=== PATIENT | male | born 1965 | race Caucasian/White ===

== ENCOUNTER → 2020-05-21 08:17 | Outpatient (BNVA) | payer OTHER, SELFPAY | PROVIDERS: PCP Internal Medicine; Visit Provider Internal Medicine | DX: I82.90 Acute embolism and thrombosis of unspecified vein (principal); Z51.81 Encounter for therapeutic drug level monitoring; Z79.01 Long term (current) use of anticoagulants | CPT/HCPCS: 85610 ==

== ENCOUNTER → 2020-06-18 08:41 | Outpatient (BNVA) | payer OTHER, SELFPAY | PROVIDERS: PCP Internal Medicine; Visit Provider Internal Medicine | DX: I82.890 Acute embolism and thrombosis of other specified veins (principal); Z51.81 Encounter for therapeutic drug level monitoring; Z79.01 Long term (current) use of anticoagulants | CPT/HCPCS: 85610; 99211 ==

== ENCOUNTER → 2020-07-16 08:30 | Outpatient (BNVA) | payer OTHER, SELFPAY | PROVIDERS: PCP Internal Medicine; Visit Provider Internal Medicine | DX: I82.890 Acute embolism and thrombosis of other specified veins (principal); Z51.81 Encounter for therapeutic drug level monitoring; Z79.01 Long term (current) use of anticoagulants | CPT/HCPCS: 85610; 99211 ==

== ENCOUNTER → 2020-08-13 08:27 | Outpatient (BNVA) | payer OTHER, SELFPAY | PROVIDERS: PCP Internal Medicine; Visit Provider Internal Medicine | DX: I82.890 Acute embolism and thrombosis of other specified veins (principal); Z51.81 Encounter for therapeutic drug level monitoring; Z79.01 Long term (current) use of anticoagulants | CPT/HCPCS: 85610; 99211 ==

== ENCOUNTER → 2020-09-10 08:30 | Outpatient (BNVA) | payer OTHER, SELFPAY | PROVIDERS: PCP Internal Medicine; Visit Provider Internal Medicine | DX: I82.890 Acute embolism and thrombosis of other specified veins (principal); Z51.81 Encounter for therapeutic drug level monitoring; Z79.01 Long term (current) use of anticoagulants | CPT/HCPCS: 85610; 99211 ==

== ENCOUNTER → 2020-09-17 09:41 | Outpatient (BNVA) | payer OTHER, SELFPAY | PROVIDERS: PCP Internal Medicine; Visit Provider Internal Medicine | DX: I82.890 Acute embolism and thrombosis of other specified veins (principal); Z51.81 Encounter for therapeutic drug level monitoring; Z79.01 Long term (current) use of anticoagulants | CPT/HCPCS: 85610; 99211 ==

== ENCOUNTER → 2020-10-08 08:28 | Outpatient (BNVA) | payer OTHER, SELFPAY | PROVIDERS: PCP Internal Medicine; Visit Provider Internal Medicine | DX: I82.890 Acute embolism and thrombosis of other specified veins (principal); Z51.81 Encounter for therapeutic drug level monitoring; Z79.01 Long term (current) use of anticoagulants | CPT/HCPCS: 85610; 99211 ==

== ENCOUNTER → 2020-10-23 08:53 | Outpatient (BNV) | payer OTHER, SELFPAY | PROVIDERS: PCP Internal Medicine; Visit Provider Internal Medicine Medical Oncology | DX: D75.1 Secondary polycythemia (principal) | CPT/HCPCS: 99213; 99214 ==

== ENCOUNTER → 2020-11-05 08:22 | Outpatient (BNVA) | payer OTHER, SELFPAY | PROVIDERS: Visit Provider Internal Medicine | DX: I82.890 Acute embolism and thrombosis of other specified veins (principal); Z51.81 Encounter for therapeutic drug level monitoring; Z79.01 Long term (current) use of anticoagulants | CPT/HCPCS: 85610; 99211 ==

== ENCOUNTER → 2020-12-03 08:24 | Outpatient (BNVA) | payer OTHER, SELFPAY | PROVIDERS: PCP Internal Medicine; Visit Provider Internal Medicine | DX: D73.5 Infarction of spleen (principal); Z51.81 Encounter for therapeutic drug level monitoring; Z79.01 Long term (current) use of anticoagulants | CPT/HCPCS: 85610; 99211 ==

== ENCOUNTER → 2020-12-24 08:35 | Outpatient (BNVA) | payer OTHER, SELFPAY | PROVIDERS: PCP Internal Medicine; Visit Provider Internal Medicine | DX: D73.5 Infarction of spleen (principal); Z51.81 Encounter for therapeutic drug level monitoring; Z79.01 Long term (current) use of anticoagulants | CPT/HCPCS: 85610; 99211 ==

== ENCOUNTER → 2021-01-21 08:37 | Outpatient (BNVA) | payer OTHER, SELFPAY | PROVIDERS: PCP Internal Medicine; Visit Provider Internal Medicine | DX: D73.5 Infarction of spleen (principal); Z51.81 Encounter for therapeutic drug level monitoring; Z79.01 Long term (current) use of anticoagulants | CPT/HCPCS: 85610; 99211 ==

== ENCOUNTER → 2021-01-25 08:33 | Outpatient (BNVA) | payer OTHER, SELFPAY | PROVIDERS: PCP Internal Medicine; Visit Provider Internal Medicine | DX: D73.5 Infarction of spleen (principal); Z51.81 Encounter for therapeutic drug level monitoring; Z79.01 Long term (current) use of anticoagulants | CPT/HCPCS: 85610; 99211 ==

== ENCOUNTER 2021-01-27 11:12 | Outpatient (REF) | payer OTHER, SELFPAY ==
[2021-01-27 11:38] LABS: MANUAL DIFF FLAG NO
[2021-01-27 11:39] LABS: Basophils Percent Auto 0.4 % (0-2); Eosinophils Percent Auto 0.7 % (0-4); Hematocrit 53.7 % (42-52); Hemoglobin 18.9 g/dl (14.0-18.0); Imm Gran Abs Auto 0.03 X10*3/uL (0.00-0.03); Imm Gran Pct Auto 0.6 % (0.0-0.4); Lymphocytes Absolute Auto 1.7 X10*3/uL (1.2-4.9); Lymphocytes Percent Auto 30.6 % (20-40); Mean Corpuscular HGB Conc 35.2 g/dl (31.0-36.0); Mean Corpuscular Hemoglobin 28.7 pg (27.0-33.0); Mean Corpuscular Volume 81.6 fL (80-98); Mean Platelet Volume 10.2 fL (9.4-12.4); Monocytes Absolute Auto 0.4 X10*3/uL (0.1-1.2); Monocytes Percent Auto 8.1 % (2-11); Neutrophils Absolute Auto 3.2 X10*3/uL (2.0-8.3); Neutrophils Percent Auto 59.6 % (45-73); Platelet Count 190 X10*3/uL (160-400); Red Blood Count 6.58 X10*6/uL (4.60-5.80); Red Cell Distribution Width 13.2 % (11.0-16.0); White Blood Count 5.4 X10*3/uL (4.8-10.8)
[2021-01-27 12:17] LABS: Alanine Aminotransferase 52 U/L (0-40); Albumin Level 4.4 g/dL (3.5-5.0); Alkaline Phosphatase 64 U/L (39-117); Anion Gap 15 (12-20); Aspartate Amino Transferase 32 U/L (5-37); Bilirubin Total 1.2 mg/dL (0.0-1.0); Blood Urea Nitrogen 17 mg/dL (9-16); Calcium 9.6 mg/dL (8.4-10.2); Carbon Dioxide 27 mmol/L (22-29); Chloride 97 mmol/L (96-108); Estimated Glomerular Filt Rate > 60; Glucose Random 176 mg/dL (60-115); Potassium 2.7 mmol/L (3.3-5.1); Sodium 136 mmol/L (135-145); Total Protein 7.1 g/dL (6.5-8.0)
== END 2021-01-27 11:13 | disposition home or self-care (01) ==
LOC: HO.BBR 11:12
PROVIDERS: PCP Internal Medicine; Visit Provider Internal Medicine Medical Oncology
DX: D75.1 Secondary polycythemia (principal)
CPT/HCPCS: 36415; 80053; 85025; 99195

== ENCOUNTER → 2021-02-01 08:24 | Outpatient (BNVA) | payer OTHER, SELFPAY | PROVIDERS: PCP Internal Medicine; Visit Provider Internal Medicine | DX: D73.5 Infarction of spleen (principal); Z51.81 Encounter for therapeutic drug level monitoring; Z79.01 Long term (current) use of anticoagulants | CPT/HCPCS: 85610; 99211 ==

== ENCOUNTER 2021-02-10 10:29 | Outpatient (REF) | payer OTHER, SELFPAY ==
[2021-02-10 11:25] LABS: MANUAL DIFF FLAG NO
[2021-02-10 11:36] LABS: INTERNATIONAL NORM RATIO 2.8 (0.9-1.1); Prothrombin Time 32.3 SEC (9.9-13.0)
[2021-02-10 11:58] LABS: Basophils Percent Auto 0.3 % (0-2); Eosinophils Percent Auto 0.3 % (0-4); Hematocrit 51.7 % (42-52); Hemoglobin 18.4 g/dl (14.0-18.0); Imm Gran Abs Auto 0.01 X10*3/uL (0.00-0.03); Imm Gran Pct Auto 0.2 % (0.0-0.4); Lymphocytes Absolute Auto 1.7 X10*3/uL (1.2-4.9); Lymphocytes Percent Auto 25.3 % (20-40); Mean Corpuscular HGB Conc 35.6 g/dl (31.0-36.0); Mean Corpuscular Hemoglobin 29.2 pg (27.0-33.0); Mean Corpuscular Volume 81.9 fL (80-98); Mean Platelet Volume 10.8 fL (9.4-12.4); Monocytes Absolute Auto 0.7 X10*3/uL (0.1-1.2); Monocytes Percent Auto 9.9 % (2-11); Neutrophils Absolute Auto 4.2 X10*3/uL (2.0-8.3); Platelet Count 240 X10*3/uL (160-400); Red Blood Count 6.31 X10*6/uL (4.60-5.80); Red Cell Distribution Width 12.8 % (11.0-16.0); White Blood Count 6.6 X10*3/uL (4.8-10.8)
[2021-02-10 12:25] LABS: Alanine Aminotransferase 45 U/L (0-40); Albumin Level 4.7 g/dL (3.5-5.0); Alkaline Phosphatase 59 U/L (39-117); Anion Gap 15 (12-20); Aspartate Amino Transferase 29 U/L (5-37); Bilirubin Total 1.1 mg/dL (0.0-1.0); Blood Urea Nitrogen 21 mg/dL (9-16); Calcium 10.7 mg/dL (8.4-10.2); Carbon Dioxide 32 mmol/L (22-29); Chloride 96 mmol/L (96-108); Estimated Glomerular Filt Rate > 60; Glucose Random 130 mg/dL (60-115); Potassium 3.1 mmol/L (3.3-5.1); Sodium 140 mmol/L (135-145); Total Protein 7.6 g/dL (6.5-8.0)
== END 2021-02-10 10:30 | disposition home or self-care (01) ==
LOC: HO.HMGCLDS 10:29
PROVIDERS: PCP Internal Medicine; Visit Provider Internal Medicine
DX: Z00.01 Encounter for general adult medical examination with abnormal findings (principal); I10 Essential (primary) hypertension; E87.6 Hypokalemia; R79.89 Other specified abnormal findings of blood chemistry; Z79.01 Long term (current) use of anticoagulants
CPT/HCPCS: 36415; 80053; 85025; 85610

== ENCOUNTER → 2021-03-01 08:37 | Outpatient (BNVA) | payer OTHER, SELFPAY | PROVIDERS: PCP Internal Medicine; Visit Provider Internal Medicine | DX: D73.5 Infarction of spleen (principal); Z51.81 Encounter for therapeutic drug level monitoring; Z79.01 Long term (current) use of anticoagulants | CPT/HCPCS: 85610; 99211 ==

== ENCOUNTER → 2021-03-30 09:05 | Outpatient (BNVA) | payer OTHER, SELFPAY | PROVIDERS: PCP Internal Medicine; Visit Provider Internal Medicine | DX: D73.5 Infarction of spleen (principal); Z51.81 Encounter for therapeutic drug level monitoring; Z79.01 Long term (current) use of anticoagulants | CPT/HCPCS: 85610; 99211 ==

== ENCOUNTER → 2021-04-06 08:50 | Outpatient (BNVA) | payer OTHER, SELFPAY | PROVIDERS: PCP Internal Medicine; Visit Provider Internal Medicine | DX: D73.5 Infarction of spleen (principal); Z51.81 Encounter for therapeutic drug level monitoring; Z79.01 Long term (current) use of anticoagulants | CPT/HCPCS: 85610; 99211 ==

== ENCOUNTER 2021-04-27 12:34 | Outpatient (REF) | payer OTHER, SELFPAY | END 2021-04-27 12:35 | disposition home or self-care (01) | LOC: HO.BBR 12:34 | PROVIDERS: PCP Internal Medicine; Visit Provider Internal Medicine Medical Oncology | DX: D75.1 Secondary polycythemia (principal) | CPT/HCPCS: 99195 ==

== ENCOUNTER → 2021-04-29 09:02 | Outpatient (BNVA) | payer OTHER, SELFPAY | PROVIDERS: PCP Internal Medicine; Visit Provider Internal Medicine | DX: D73.5 Infarction of spleen (principal); Z51.81 Encounter for therapeutic drug level monitoring; Z79.01 Long term (current) use of anticoagulants | CPT/HCPCS: 85610; 99211 ==

== ENCOUNTER → 2021-05-27 08:47 | Outpatient (BNVA) | payer OTHER, SELFPAY | PROVIDERS: PCP Internal Medicine; Visit Provider Internal Medicine | DX: D73.5 Infarction of spleen (principal); Z51.81 Encounter for therapeutic drug level monitoring; Z79.01 Long term (current) use of anticoagulants | CPT/HCPCS: 85610; 99211 ==

== ENCOUNTER → 2021-06-24 08:45 | Outpatient (BNVA) | payer OTHER, SELFPAY | PROVIDERS: PCP Internal Medicine; Visit Provider Internal Medicine | DX: D73.5 Infarction of spleen (principal); Z51.81 Encounter for therapeutic drug level monitoring; Z79.01 Long term (current) use of anticoagulants | CPT/HCPCS: 85610; 99211 ==

== ENCOUNTER → 2021-07-12 08:39 | Outpatient (BNVA) | payer OTHER, SELFPAY | PROVIDERS: PCP Internal Medicine; Visit Provider Internal Medicine | DX: D73.5 Infarction of spleen (principal); Z51.81 Encounter for therapeutic drug level monitoring; Z79.01 Long term (current) use of anticoagulants | CPT/HCPCS: 85610; 99211 ==

== ENCOUNTER 2021-07-27 09:06 | Outpatient (REF) | payer OTHER, SELFPAY ==
[2021-07-27 09:19] LABS: MANUAL DIFF FLAG NO
[2021-07-27 09:22] LABS: Basophils Percent Auto 0.5 % (0-2); Eosinophils Percent Auto 0.7 % (0-4); Hematocrit 52.3 % (42.0-52.0); Hemoglobin 17.4 g/dl (14.0-18.0); Imm Gran Abs Auto 0.01 X10*3/uL (0.00-0.03); Imm Gran Pct Auto 0.2 % (0.0-0.4); Lymphocytes Absolute Auto 1.4 X10*3/uL (1.2-4.9); Lymphocytes Percent Auto 31.8 % (20-40); Mean Corpuscular HGB Conc 33.3 g/dl (31.0-36.0); Mean Corpuscular Hemoglobin 27.7 pg (27.0-33.0); Mean Corpuscular Volume 83.3 fL (80.0-98.0); Mean Platelet Volume 9.9 fL (9.4-12.4); Monocytes Absolute Auto 0.4 X10*3/uL (0.1-1.2); Monocytes Percent Auto 9.1 % (2-11); Neutrophils Absolute Auto 2.5 x10*3/uL (2.0-8.3); Neutrophils Percent Auto 57.7 % (45-73); Platelet Count 164 X10*3/uL (160-400); Red Blood Count 6.28 X10*6/uL (4.60-5.80); Red Cell Distribution Width 13.8 % (11.0-16.0); White Blood Count 4.4 X10*3/uL (4.8-10.8)
[2021-07-27 09:56] LABS: Alanine Aminotransferase 35 U/L (0-40); Albumin Level 4.2 g/dL (3.5-5.0); Alkaline Phosphatase 79 U/L (39-117); Anion Gap 12 (12-20); Aspartate Amino Transferase 20 U/L (5-37); Bilirubin Total 0.7 mg/dL (0.0-1.0); Blood Urea Nitrogen 13 mg/dL (9-16); Calcium 9.5 mg/dL (8.4-10.2); Carbon Dioxide 23 mmol/L (22-29); Chloride 110 mmol/L (96-108); Estimated Glomerular Filt Rate > 60; Glucose Random 142 mg/dL (60-115); Potassium 4.1 mmol/L (3.3-5.1); Sodium 141 mmol/L (135-145); Total Protein 6.7 g/dL (6.5-8.0)
== END 2021-07-27 09:07 | disposition home or self-care (01) ==
LOC: HO.BBR 09:06
PROVIDERS: Visit Provider Internal Medicine Medical Oncology
DX: D75.1 Secondary polycythemia (principal)
CPT/HCPCS: 36415; 80053; 85018; 85025; 99195

== ENCOUNTER → 2021-08-09 08:13 | Outpatient (BNVA) | payer OTHER, SELFPAY | PROVIDERS: PCP Internal Medicine; Visit Provider Internal Medicine | DX: D73.5 Infarction of spleen (principal); Z51.81 Encounter for therapeutic drug level monitoring; Z79.01 Long term (current) use of anticoagulants | CPT/HCPCS: 85610; 99211 ==

== ENCOUNTER 2021-11-02 08:50 | Outpatient (REF) | payer OTHER, SELFPAY | END 2021-11-02 08:51 | disposition home or self-care (01) | LOC: HO.BBR 08:50 | PROVIDERS: Visit Provider Internal Medicine Medical Oncology | DX: D75.1 Secondary polycythemia (principal) | CPT/HCPCS: 85018; 99195 ==

== ENCOUNTER → 2021-12-21 10:48 | Outpatient (BNVA) | payer OTHER, SELFPAY | PROVIDERS: PCP Internal Medicine; Visit Provider Internal Medicine | DX: D73.5 Infarction of spleen (principal); Z79.01 Long term (current) use of anticoagulants; Z51.81 Encounter for therapeutic drug level monitoring | CPT/HCPCS: 85610; 99211 ==

== ENCOUNTER → 2022-01-18 08:56 | Outpatient (BNVA) | payer OTHER, SELFPAY | PROVIDERS: PCP Internal Medicine; Visit Provider Internal Medicine | DX: D73.5 Infarction of spleen (principal); Z79.01 Long term (current) use of anticoagulants; Z51.81 Encounter for therapeutic drug level monitoring | CPT/HCPCS: 85610; 99211 ==

== ENCOUNTER 2022-02-03 10:15 | Outpatient (REF) | payer OTHER, SELFPAY | END 2022-02-03 10:16 | disposition home or self-care (01) | LOC: HO.BBR 10:15 | PROVIDERS: Visit Provider Internal Medicine Medical Oncology | DX: D75.1 Secondary polycythemia (principal) | CPT/HCPCS: 85018; 99195 ==

== ENCOUNTER → 2022-02-15 09:05 | Outpatient (BNVA) | payer OTHER, SELFPAY | PROVIDERS: PCP Internal Medicine; Visit Provider Internal Medicine | DX: D73.5 Infarction of spleen (principal); Z79.01 Long term (current) use of anticoagulants; Z51.81 Encounter for therapeutic drug level monitoring | CPT/HCPCS: 85610; 99211 ==

== ENCOUNTER → 2022-03-18 09:00 | Outpatient (BNVA) | payer OTHER, SELFPAY | PROVIDERS: PCP Internal Medicine; Visit Provider Internal Medicine | DX: D73.5 Infarction of spleen (principal); Z79.01 Long term (current) use of anticoagulants; Z51.81 Encounter for therapeutic drug level monitoring | CPT/HCPCS: 85610; 99211 ==

== ENCOUNTER → 2022-04-15 09:00 | Outpatient (BNVA) | payer OTHER, SELFPAY | PROVIDERS: PCP Internal Medicine; Visit Provider Internal Medicine | DX: D73.5 Infarction of spleen (principal); Z79.01 Long term (current) use of anticoagulants; Z51.81 Encounter for therapeutic drug level monitoring | CPT/HCPCS: 85610; 99211 ==

== ENCOUNTER → 2022-04-22 08:56 | Outpatient (BNVA) | payer OTHER, SELFPAY | PROVIDERS: PCP Internal Medicine; Visit Provider Internal Medicine | DX: D73.5 Infarction of spleen (principal); Z79.01 Long term (current) use of anticoagulants; Z51.81 Encounter for therapeutic drug level monitoring | CPT/HCPCS: 85610; 99211 ==

== ENCOUNTER → 2022-04-29 09:03 | Outpatient (BNVA) | payer OTHER, SELFPAY | PROVIDERS: PCP Internal Medicine; Visit Provider Internal Medicine | DX: D73.5 Infarction of spleen (principal); Z79.01 Long term (current) use of anticoagulants; Z51.81 Encounter for therapeutic drug level monitoring | CPT/HCPCS: 85610; 99211 ==

== ENCOUNTER 2022-05-09 12:03 | Outpatient (REF) | payer OTHER, SELFPAY | END 2022-05-09 12:04 | disposition home or self-care (01) | LOC: HO.BBR 12:03 | PROVIDERS: Visit Provider Internal Medicine Medical Oncology | DX: D75.1 Secondary polycythemia (principal) | CPT/HCPCS: 85014; 85018; 99195 ==

== ENCOUNTER → 2022-05-13 09:01 | Outpatient (BNVA) | payer OTHER, SELFPAY | PROVIDERS: PCP Internal Medicine; Visit Provider Internal Medicine | DX: D73.5 Infarction of spleen (principal); Z79.01 Long term (current) use of anticoagulants; Z51.81 Encounter for therapeutic drug level monitoring | CPT/HCPCS: 85610; 99211 ==

== ENCOUNTER → 2022-06-03 09:04 | Outpatient (BNVA) | payer OTHER, SELFPAY | PROVIDERS: PCP Internal Medicine; Visit Provider Internal Medicine | DX: D73.5 Infarction of spleen (principal); Z79.01 Long term (current) use of anticoagulants; Z51.81 Encounter for therapeutic drug level monitoring | CPT/HCPCS: 85610; 99211 ==

== ENCOUNTER → 2022-06-29 09:25 | Outpatient (BNVA) | payer OTHER, SELFPAY | PROVIDERS: PCP Internal Medicine; Visit Provider Internal Medicine | DX: D73.5 Infarction of spleen (principal); Z79.01 Long term (current) use of anticoagulants; Z51.81 Encounter for therapeutic drug level monitoring | CPT/HCPCS: 85610; 99211 ==

== ENCOUNTER → 2022-07-05 08:49 | Outpatient (BNVA) | payer OTHER, SELFPAY | PROVIDERS: PCP Internal Medicine; Visit Provider Internal Medicine | DX: D73.5 Infarction of spleen (principal); Z79.01 Long term (current) use of anticoagulants; Z51.81 Encounter for therapeutic drug level monitoring | CPT/HCPCS: 85610; 99211 ==

== ENCOUNTER → 2022-08-04 09:57 | Outpatient (BNVA) | payer OTHER, SELFPAY | PROVIDERS: PCP Internal Medicine; Visit Provider Internal Medicine | DX: D73.5 Infarction of spleen (principal); Z79.01 Long term (current) use of anticoagulants; Z51.81 Encounter for therapeutic drug level monitoring | CPT/HCPCS: 85610; 99211 ==

== ENCOUNTER 2022-08-09 10:50 | Outpatient (REF) | payer OTHER, SELFPAY | END 2022-08-09 10:51 | disposition home or self-care (01) | LOC: HO.BBR 10:50 | PROVIDERS: PCP Internal Medicine; Visit Provider Internal Medicine Medical Oncology | DX: D75.1 Secondary polycythemia (principal) | CPT/HCPCS: 85014; 85018; 99195 ==

== ENCOUNTER 2022-08-10 10:53 | Outpatient (REF) | payer OTHER, SELFPAY | END 2022-08-10 10:54 | disposition home or self-care (01) | LOC: HO.BBR 10:53 | PROVIDERS: Visit Provider Internal Medicine Medical Oncology | DX: D75.1 Secondary polycythemia (principal) | CPT/HCPCS: 85014; 85018; 99195 ==

== ENCOUNTER → 2022-09-01 09:24 | Outpatient (BNVA) | payer OTHER, SELFPAY | PROVIDERS: PCP Internal Medicine; Visit Provider Internal Medicine | DX: D73.5 Infarction of spleen (principal); Z79.01 Long term (current) use of anticoagulants; Z51.81 Encounter for therapeutic drug level monitoring | CPT/HCPCS: 85610; 99211 ==

== ENCOUNTER → 2022-09-15 08:47 | Outpatient (BNVA) | payer OTHER, SELFPAY | PROVIDERS: PCP Internal Medicine; Visit Provider Internal Medicine | DX: D73.5 Infarction of spleen (principal); Z79.01 Long term (current) use of anticoagulants; Z51.81 Encounter for therapeutic drug level monitoring | CPT/HCPCS: 85610; 99212 ==

== ENCOUNTER → 2022-09-19 09:22 | Outpatient (BNVA) | payer OTHER, SELFPAY | PROVIDERS: PCP Internal Medicine; Visit Provider Internal Medicine | DX: D73.5 Infarction of spleen (principal); Z79.01 Long term (current) use of anticoagulants; Z51.81 Encounter for therapeutic drug level monitoring | CPT/HCPCS: 85610; 99211 ==

== ENCOUNTER → 2022-09-23 09:12 | Outpatient (BNVA) | payer OTHER, SELFPAY | PROVIDERS: PCP Internal Medicine; Visit Provider Internal Medicine | DX: D73.5 Infarction of spleen (principal); Z79.01 Long term (current) use of anticoagulants; Z51.81 Encounter for therapeutic drug level monitoring | CPT/HCPCS: 85610; 99211 ==

== ENCOUNTER → 2022-10-05 09:11 | Outpatient (BNVA) | payer OTHER, SELFPAY | PROVIDERS: PCP Internal Medicine; Visit Provider Internal Medicine | DX: D73.5 Infarction of spleen (principal); Z79.01 Long term (current) use of anticoagulants; Z51.81 Encounter for therapeutic drug level monitoring | CPT/HCPCS: 85610; 99211 ==

== ENCOUNTER → 2022-10-19 08:59 | Outpatient (BNVA) | payer OTHER, SELFPAY | PROVIDERS: PCP Internal Medicine; Visit Provider Internal Medicine | DX: D73.5 Infarction of spleen (principal); Z79.01 Long term (current) use of anticoagulants; Z51.81 Encounter for therapeutic drug level monitoring | CPT/HCPCS: 85610; 99211 ==

== ENCOUNTER 2022-11-08 | Outpatient (REF) | payer OTHER, SELFPAY | END 2022-11-08 00:01 | LOC: HO.BBR | PROVIDERS: PCP Internal Medicine; Visit Provider Internal Medicine Medical Oncology | DX: I82.890 Acute embolism and thrombosis of other specified veins (principal); Z51.81 Encounter for therapeutic drug level monitoring; Z79.01 Long term (current) use of anticoagulants | CPT/HCPCS: 85610; 99211 ==

== ENCOUNTER 2022-11-10 11:45 | Outpatient (REF) | payer OTHER, SELFPAY | END 2022-11-10 11:46 | disposition home or self-care (01) | LOC: HO.BBR 11:45 | PROVIDERS: Visit Provider Internal Medicine Medical Oncology | DX: D75.1 Secondary polycythemia (principal) | CPT/HCPCS: 85018; 99195 ==

== ENCOUNTER → 2022-11-29 09:05 | Outpatient (BNVA) | payer OTHER, SELFPAY | PROVIDERS: PCP Internal Medicine; Visit Provider Internal Medicine | DX: D73.5 Infarction of spleen (principal); Z79.01 Long term (current) use of anticoagulants; Z51.81 Encounter for therapeutic drug level monitoring | CPT/HCPCS: 85610; 99211 ==

== ENCOUNTER → 2022-12-13 08:56 | Outpatient (BNVA) | payer OTHER, SELFPAY | PROVIDERS: PCP Internal Medicine; Visit Provider Internal Medicine | DX: D73.5 Infarction of spleen (principal); Z79.01 Long term (current) use of anticoagulants; Z51.81 Encounter for therapeutic drug level monitoring | CPT/HCPCS: 85610; 99211 ==

== ENCOUNTER → 2022-12-27 09:15 | Outpatient (BNVA) | payer OTHER, SELFPAY | PROVIDERS: PCP Internal Medicine; Visit Provider Internal Medicine | DX: D73.5 Infarction of spleen (principal); Z79.01 Long term (current) use of anticoagulants; Z51.81 Encounter for therapeutic drug level monitoring | CPT/HCPCS: 85610; 99211 ==

== ENCOUNTER → 2023-01-17 09:03 | Outpatient (BNVA) | payer OTHER, SELFPAY | PROVIDERS: PCP Internal Medicine; Visit Provider Internal Medicine | DX: D73.5 Infarction of spleen (principal); Z79.01 Long term (current) use of anticoagulants; Z51.81 Encounter for therapeutic drug level monitoring | CPT/HCPCS: 85610; 99211 ==

== ENCOUNTER → 2023-02-06 09:00 | Outpatient (BNVA) | payer OTHER, SELFPAY | PROVIDERS: PCP Internal Medicine; Visit Provider Internal Medicine | DX: D73.5 Infarction of spleen (principal); Z79.01 Long term (current) use of anticoagulants; Z51.81 Encounter for therapeutic drug level monitoring | CPT/HCPCS: 85610; 99211 ==

== ENCOUNTER → 2023-02-10 08:51 | Outpatient (BNVA) | payer OTHER, SELFPAY | PROVIDERS: PCP Internal Medicine; Visit Provider Internal Medicine | DX: D73.5 Infarction of spleen (principal); Z79.01 Long term (current) use of anticoagulants; Z51.81 Encounter for therapeutic drug level monitoring | CPT/HCPCS: 85610; 99211 ==

== ENCOUNTER 2023-02-24 08:42 | Outpatient (AMB) | payer OTHER, SELFPAY ==
[2023-02-24 08:52] LABS: ~PT, ~INR - Anti Coag Clinic 1.8 (0.9-1.1)
--- NOTE | 2023-02-24 08:56 | MHC.OFFVISCO ---
Intake Intake Visit Reasons: Anticoagulation Allergies Seasonal Allergies Allergy (Mild, Verified 02/24/23 08:44) Itchy Eyes Medication List - Last Reconciled 02/24/23 by Tita Elena RN amlodipine 10 mg PO DAILY 90 days atenolol 100 mg PO DAILY 90 days omeprazole 20 mg PO DAILY 90 days spironolactone 50 mg PO DAILY 90 days warfarin See Protocol 5MG X2DAYS/ 7.5MG X5 DAYS; Nursing Note NO MISSED DOSES,CP,SOB,DIET/MED CHANGES,FALLS OR SX OF BLEEDING. PT.STATES THAT HE HAS BEEN TAKING 5MGM ON SUNDAYS FOR A WHILE IN APPARANT ERROR. 10MGM TODAY THEN 7.5MGM DAILY AND FOLLOW-UP IN 2 WEEKS. NO GREENS 2 DAYS GOOD UNDERSTANDING OF DOSING INSTR. 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
== END 2023-02-24 09:11 | disposition home or self-care (01) ==
LOC: HO.ACS 08:42
PROVIDERS: PCP Internal Medicine; Visit Provider Internal Medicine
DX: Z79.01 Long term (current) use of anticoagulants (principal)

== ENCOUNTER → 2023-02-24 08:42 | Outpatient (BNVA) | payer OTHER, SELFPAY | PROVIDERS: PCP Internal Medicine; Visit Provider Internal Medicine | DX: D73.5 Infarction of spleen (principal); Z79.01 Long term (current) use of anticoagulants; Z51.81 Encounter for therapeutic drug level monitoring | CPT/HCPCS: 85610; 99211 ==

== ENCOUNTER 2023-03-10 09:09 | Outpatient (AMB) | payer OTHER, SELFPAY ==
--- NOTE | 2023-03-10 09:14 | MHC.OFFVISCO ---
Intake Intake Visit Reasons: Anticoagulation Allergies Seasonal Allergies Allergy (Mild, Verified 03/10/23 09:10) Itchy Eyes Medication List - Last Reconciled 03/10/23 by Lissette Coker RN amlodipine 10 mg PO DAILY 90 days atenolol 100 mg PO DAILY 90 days omeprazole 20 mg PO DAILY 90 days spironolactone 50 mg PO DAILY 90 days warfarin See Protocol 5MG X2DAYS/ 7.5MG X5 DAYS; Nursing Note INR: 2.5 in therapeutic range Medications and supplements reviewed LOST WEIGHT AND MORE ACTIVE -HAS NOT HAD USUAL GREENS, MAY NEED HIGHER DOSE OF WARFARIN, Denies any signs and symptoms of bleeding or bruising or clotting. Bleeding, bruising, clotting discussed Nutritional guidance given - RESUME WEEKLY GREENS Dose: 10MG X 1 DAY/ 7.5MG X 6 DAYS F/U INR: 2 WEEKS Patient verbalizes understanding of instructions given Anti-Coag Initial Assessment Social Hx Patient Tobacco Use Status: Current everyday Tobacco user Tobacco use type: Cigarette Smoking packs per day: 0.5 alcohol intake: former Alcohol intake frequency: does not drink Coding Level of Care Code Est Patient Level 1 Diagnoses Current use of anticoagulant therapy Z79.01 Assessment & Plan Assessment & Plan (1) Current use of anticoagulant therapy: Code(s): 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
[2023-03-10 09:15] LABS: Prothrombin Time Whole Bld POC 30.4 sec (11.1-13.5); ~PT, ~INR - Anti Coag Clinic 2.5 (0.9-1.1)
== END 2023-03-10 09:22 | disposition home or self-care (01) ==
LOC: HO.ACS 09:09
PROVIDERS: PCP Internal Medicine; Visit Provider Internal Medicine
DX: Z79.01 Long term (current) use of anticoagulants (principal)

== ENCOUNTER → 2023-03-10 09:09 | Outpatient (BNVA) | payer OTHER, SELFPAY | PROVIDERS: PCP Internal Medicine; Visit Provider Internal Medicine | DX: D73.5 Infarction of spleen (principal); Z79.01 Long term (current) use of anticoagulants; Z51.81 Encounter for therapeutic drug level monitoring | CPT/HCPCS: 85610; 99211 ==

== ENCOUNTER 2023-03-16 08:53 | Outpatient (REF) | payer OTHER, SELFPAY | END 2023-03-16 08:54 | disposition home or self-care (01) | LOC: HO.BBR 08:53 | PROVIDERS: PCP Internal Medicine; Visit Provider Internal Medicine Medical Oncology | DX: D75.1 Secondary polycythemia (principal) | CPT/HCPCS: 85018; 99195 ==

== ENCOUNTER 2023-03-31 09:13 | Outpatient (AMB) | payer OTHER, SELFPAY ==
--- NOTE | 2023-03-31 09:19 | MHC.OFFVISCO ---
Intake Intake Visit Reasons: Anticoagulation Allergies Seasonal Allergies Allergy (Mild, Verified 03/31/23 09:15) Itchy Eyes Medication List - Last Reconciled 03/31/23 by Lissette Coker RN amlodipine 10 mg PO DAILY 90 days atenolol 100 mg PO DAILY 90 days omeprazole 20 mg PO DAILY 90 days spironolactone 50 mg PO DAILY 90 days warfarin See Protocol 5MG X2DAYS/ 7.5MG X5 DAYS; Nursing Note INR: 2.5 in therapeutic range Medications and supplements reviewed EATING HEALTHIER , MORE ACTIVE WITH WORK, HAS LOST 16 LBS OVER THE SUMMER Denies any signs and symptoms of bleeding or bruising or clotting. 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
[2023-03-31 09:31] LABS: Prothrombin Time Whole Bld POC 30.5 sec (11.1-13.5); ~PT, ~INR - Anti Coag Clinic 2.5 (0.9-1.1)
== END 2023-03-31 09:27 | disposition home or self-care (01) ==
LOC: HO.ACS 09:13
PROVIDERS: PCP Internal Medicine; Visit Provider Internal Medicine
DX: Z79.01 Long term (current) use of anticoagulants (principal)

== ENCOUNTER → 2023-03-31 09:13 | Outpatient (BNVA) | payer OTHER, SELFPAY | PROVIDERS: PCP Internal Medicine; Visit Provider Internal Medicine | DX: I82.890 Acute embolism and thrombosis of other specified veins (principal); Z51.81 Encounter for therapeutic drug level monitoring; Z79.01 Long term (current) use of anticoagulants | CPT/HCPCS: 85610; 99211 ==

== ENCOUNTER 2023-04-28 08:53 | Outpatient (AMB) | payer OTHER, SELFPAY ==
--- NOTE | 2023-04-28 08:58 | MHC.OFFVISCO ---
Intake Intake Visit Reasons: Anticoagulation Allergies Seasonal Allergies Allergy (Mild, Verified 04/28/23 08:54) Itchy Eyes Medication List - Last Reconciled 04/28/23 by Bia Briggs RN amlodipine 10 mg PO DAILY 90 days atenolol 100 mg PO DAILY 90 days omeprazole 20 mg PO DAILY 90 days spironolactone 50 mg PO DAILY 90 days warfarin See Protocol 5MG X2DAYS/ 7.5MG X5 DAYS; Nursing Note INR: 2.0- in therapeutic range Medications and supplements reviewed- no changes No changes in health, diet, medications, or supplements, Denies any signs and symptoms of bleeding or bruising or clotting. 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
[2023-04-28 09:00] LABS: Prothrombin Time Whole Bld POC 24.5 sec (11.1-13.5)
== END 2023-04-28 09:02 | disposition home or self-care (01) ==
LOC: HO.ACS 08:53
PROVIDERS: PCP Internal Medicine; Visit Provider Internal Medicine
DX: Z79.01 Long term (current) use of anticoagulants (principal)

== ENCOUNTER → 2023-04-28 08:53 | Outpatient (BNVA) | payer OTHER, SELFPAY | PROVIDERS: PCP Internal Medicine; Visit Provider Internal Medicine | DX: D73.5 Infarction of spleen (principal); Z79.01 Long term (current) use of anticoagulants; Z51.81 Encounter for therapeutic drug level monitoring | CPT/HCPCS: 85610; 99211 ==

== ENCOUNTER 2023-05-19 09:07 | Outpatient (AMB) | payer OTHER, SELFPAY ==
[2023-05-19 09:18] LABS: ~PT, ~INR - Anti Coag Clinic 2.3 (0.9-1.1)
--- NOTE | 2023-05-19 09:24 | MHC.OFFVISCO ---
Intake Intake Visit Reasons: Anticoagulation Allergies Seasonal Allergies Allergy (Mild, Verified 05/19/23 09:13) Itchy Eyes Medication List - Last Reconciled 05/19/23 by Lissette Coker RN amlodipine 10 mg PO DAILY 90 days atenolol 100 mg PO DAILY 90 days omeprazole 20 mg PO DAILY 90 days spironolactone 50 mg PO DAILY 90 days warfarin See Protocol 5MG X2DAYS/ 7.5MG X5 DAYS; Nursing Note INR: 2.3 in therapeutic range Medications and supplements reviewed No changes in health, diet, medications, or supplements, Denies any signs and symptoms of bleeding or bruising or clotting. 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
== END 2023-05-19 09:25 | disposition home or self-care (01) ==
LOC: HO.ACS 09:07
PROVIDERS: PCP Internal Medicine; Visit Provider Internal Medicine
DX: Z79.01 Long term (current) use of anticoagulants (principal)

== ENCOUNTER → 2023-05-19 09:07 | Outpatient (BNVA) | payer OTHER, SELFPAY | PROVIDERS: PCP Internal Medicine; Visit Provider Internal Medicine | DX: D73.5 Infarction of spleen (principal); Z79.01 Long term (current) use of anticoagulants; Z51.81 Encounter for therapeutic drug level monitoring | CPT/HCPCS: 85610; 99211 ==

== ENCOUNTER 2023-06-16 09:04 | Outpatient (AMB) | payer OTHER, SELFPAY ==
--- NOTE | 2023-06-16 09:10 | MHC.OFFVISCO ---
Intake Intake Visit Reasons: Anticoagulation Allergies Seasonal Allergies Allergy (Mild, Verified 06/16/23 09:07) Itchy Eyes Medication List - Last Reconciled 06/16/23 by Bia Briggs, RN amlodipine 10 mg PO DAILY 90 days atenolol 100 mg PO DAILY 90 days omeprazole 20 mg PO DAILY 90 days spironolactone 50 mg PO DAILY 90 days warfarin See Protocol 5MG X2DAYS/ 7.5MG X5 DAYS; Nursing Note INR: 2.0- in therapeutic range of 2-3 Medications and supplements reviewed- had covid booster approx one week ago No changes in health, diet, medications, or supplements, Denies any signs and symptoms of bleeding or bruising or clotting. Bleeding, bruising, clotting discussed Nutritional guidance given- no greens for 2 days, eat a red today Dose: 10mg x 1, 7.5mg x 6 F/U INR: pt req 4 weeks Patient verbalizes understanding of instructions given Anti-Coag Initial Assessment Social Hx Patient Tobacco Use Status: Current everyday Tobacco user Tobacco use type: Cigarette Smoking packs per day: 0.5 alcohol intake: former Alcohol intake frequency: does not drink Coding Level of Care Code Est Patient Level 1 Diagnoses Current use of anticoagulant therapy Z79.01 Assessment & Plan Assessment & Plan (1) Current use of anticoagulant therapy: Code(s): 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
[2023-06-16 09:12] LABS: Prothrombin Time Whole Bld POC 23.4 sec (11.1-13.5)
== END 2023-06-16 09:15 | disposition home or self-care (01) ==
LOC: HO.ACS 09:04
PROVIDERS: PCP Internal Medicine; Visit Provider Internal Medicine
DX: Z79.01 Long term (current) use of anticoagulants (principal)

== ENCOUNTER → 2023-06-16 09:04 | Outpatient (BNVA) | payer OTHER, SELFPAY | PROVIDERS: PCP Internal Medicine; Visit Provider Internal Medicine | DX: D73.5 Infarction of spleen (principal); Z79.01 Long term (current) use of anticoagulants; Z51.81 Encounter for therapeutic drug level monitoring | CPT/HCPCS: 85610; 99211 ==

== ENCOUNTER 2023-07-14 08:55 | Outpatient (AMB) | payer OTHER, SELFPAY ==
[2023-07-14 09:14] LABS: Prothrombin Time Whole Bld POC 17.8 sec (11.1-13.5); ~PT, ~INR - Anti Coag Clinic 1.5 (0.9-1.1)
--- NOTE | 2023-07-14 09:17 | MHC.OFFVISCO ---
Intake Intake Visit Reasons: Anticoagulation Allergies Seasonal Allergies Allergy (Mild, Verified 07/14/23 09:08) Itchy Eyes Medication List - Last Reconciled 07/14/23 by Bia Briggs RN amlodipine 10 mg PO DAILY 90 days atenolol 100 mg PO DAILY 90 days omeprazole 20 mg PO DAILY 90 days spironolactone 50 mg PO DAILY 90 days warfarin See Protocol 7.5mg x 6, 10mg x 1 Nursing Note INR 1.5-?? out of therapeutic range of 2-3 pt states missed 4 doses due to unable to get refill in time Medications and supplements reviewed Patient status: no c.o Medications or supplements: no changes Diet: same Denies any signs and symptoms of bleeding or clotting or unusual bruising Bleeding, bruising, clotting discussed Nutritional guidance given: no greens for 3 days, eat reds to raise Dose: 10mg today and tomm then cont reg 7.5mg x 6, 10mg x 1 F/U INR Date : mon07/17/23?? Patient verbalizing understanding of instructions given. pcp office called with low inr/dosing and f/u appt, spoke to edgar at 0923, aware of missed doses composed note to pcp Anti-Coag Initial Assessment Social Hx Patient Tobacco Use Status: Current everyday Tobacco user Tobacco use type: Cigarette Smoking packs per day: 0.5 alcohol intake: former Alcohol intake frequency: does not drink Coding Level of Care Code Est Patient Level 1 Diagnoses Current use of anticoagulant therapy Z79.01 Results AMB INR Fingerstick AMB INR Fingerstick 1.5 Last Edit by Bia Briggs RN on 07/14/23 09:14 Assessment & Plan Assessment & Plan (1) Current use of anticoagulant therapy: Code(s): Z79.01 - detention (current) use of anticoagulants Category: Medical Medications: Changed From warfarin See Protocol 5MG X2DAYS/ 7.5MG X5 DAYS; 90 tabs 3RF To warfarin See Protocol 7.5mg x 6, 10mg x 1
== END 2023-07-14 09:26 | disposition home or self-care (01) ==
LOC: HO.ACS 08:55
PROVIDERS: PCP Internal Medicine; Visit Provider Internal Medicine
DX: Z79.01 Long term (current) use of anticoagulants (principal)

== ENCOUNTER → 2023-07-14 08:55 | Outpatient (BNVA) | payer OTHER, SELFPAY | PROVIDERS: PCP Internal Medicine; Visit Provider Internal Medicine | DX: D73.5 Infarction of spleen (principal); Z79.01 Long term (current) use of anticoagulants; Z51.81 Encounter for therapeutic drug level monitoring | CPT/HCPCS: 85610; 99211 ==

== ENCOUNTER 2023-07-17 09:08 | Outpatient (AMB) | payer OTHER, SELFPAY ==
[2023-07-17 09:33] LABS: ~PT, ~INR - Anti Coag Clinic 2.5 (0.9-1.1)
--- NOTE | 2023-07-17 09:37 | MHC.OFFVISCO ---
Intake Intake Visit Reasons: Anticoagulation Allergies Seasonal Allergies Allergy (Mild, Verified 07/17/23 09:26) Itchy Eyes Medication List - Last Reconciled 07/17/23 by Lissette Coker RN amlodipine 10 mg PO DAILY 90 days atenolol 100 mg PO DAILY 90 days omeprazole 20 mg PO DAILY 90 days spironolactone 50 mg PO DAILY 90 days warfarin See Protocol 7.5mg x 6, 10mg x 1 Nursing Note INR: 2.5 in therapeutic range Medications and supplements reviewed No changes in health, diet, medications, or supplements, Denies any signs and symptoms of bleeding or bruising or clotting. 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
== END 2023-07-17 09:38 | disposition home or self-care (01) ==
LOC: HO.ACS 09:08
PROVIDERS: PCP Internal Medicine; Visit Provider Internal Medicine
DX: Z79.01 Long term (current) use of anticoagulants (principal)

== ENCOUNTER 2023-07-18 12:57 | Outpatient (REF) | payer OTHER, SELFPAY | END 2023-07-18 12:58 | disposition home or self-care (01) | LOC: HO.BBR 12:57 | PROVIDERS: PCP Internal Medicine; Visit Provider Internal Medicine Medical Oncology | DX: D75.1 Secondary polycythemia (principal) | CPT/HCPCS: 85014; 85018; 99195 ==

== ENCOUNTER 2023-07-21 07:57 | Outpatient (AMB) | payer OTHER, SELFPAY ==
[2023-07-21 08:09] VITALS: BP 116/80; PULSE 84; O2SAT 98; BMI 29.7
--- NOTE | 2023-07-21 08:09 | A.OFFPC_ITS ---
Vital Signs 07/21/23 08:09 Height 5 ft 9 in Weight 201 lb BMI 29.7 BP 116/80 Blood Pressure Location Rt brachial Position Sitting Pulse 84 Pulse Source Pulse Oximeter Pulse Oximetry (%) 98 Oxygen Delivery Method Room Air Intake Visit Reasons: Medication Follow Up Allergies Seasonal Allergies Allergy (Mild, Verified 07/17/23 09:26) Itchy Eyes Medication List - Last Reconciled 07/21/23 by Dimas Reid MD amlodipine 10 mg PO DAILY 90 days atenolol 100 mg PO DAILY 90 days omeprazole 20 mg PO DAILY 90 days spironolactone 50 mg PO DAILY 90 days warfarin See Protocol 7.5mg x 6, 10mg x 1 Tobacco use date assessed: 07/21/23 Dental Screening Dental Screen Date: 07/21/23 Did you have a dental visit in the last 12 months?: No Was dental information given to patient?: No HPI Medication Follow Up HPI Details Patient is a 57-year-old male came in today for his regular follow-up appointment last early April Patient is his usual state of health Hypertension: Patient is taking amlodipine 10 mg, atenolol 100 mg and spironolactone 50 mg. His blood pressure does fluctuate up. Patient disorder taking no medications he says he is stable Patient says that whenever he feels depressed he goes for a walk which helps a lot He has also modified his diet and is feeling much better than before GERD is stable with omeprazole 20 mg. Polycythemia management through hematology. Still smoking however has cut down and is trying to quit Labs are needed, I see the order already in the system placed by Hematology Follow-up early November [facility] Medical History Anxiety, generalized Tobacco abuse Dyspepsia Splenic vein thrombosis Hepatitis C antibody positive in blood Hypertension, essential Bipolar 1 disorder Surgical History History of surgery History of tonsillectomy Family History Father HTN (hypertension) Mother HTN (hypertension) Brother HTN (hypertension) Maternal Grandfather No problems noted. Maternal Grandmother No problems noted. Paternal Grandfather No problems noted. Paternal Grandmother No problems noted. Brother No problems noted. Sister No problems noted. Daughter No problems noted. Other Substance use disorder Social History Household Members: Family Housing: Condominium Are you a primary health care attorney to a significant other at home: No Do you presently have visiting nurse or other home services: No Alcohol intake: former Patient Tobacco Use Status: Current everyday Tobacco user Tobacco use type: Cigarette Cigarette Packs Per Day: 0.5 Years Smoked: 17 e-Cigarette/Vaping Use: Never Used Substance Use Type: Marijuana service: No Current occupational status: disabled Cognitive needs: No Hearing needs: No Vision needs: Yes Questionnaire Thrive Questionnaire Date Thrive assessed: 12/21/21 SHRADDHA-7 AMB Questionnaire SHRADDHA-7 Date SHRADDHA - 7 assessed: 12/21/21 Source: Developed by Drs. Vivek Sims, Saadia Harris, French Correia and colleagues, with an educational azeem from [employer]. Review of Systems Const Denies chills and Denies fever(s) ENT Denies epistaxis and Denies nasal discharge Card Denies chest pain Resp Denies chest congestion, Denies cough and Denies hemoptysis GI Denies diarrhea and Denies nausea Skin/Breast Denies rash Neuro Reports no additional complaints Psych Reports no additional complaints Endo Reports no additional complaints Physical exam (Primary Care) Vital Signs: Last Vital Signs Pulse 84 07/21/23 08:09 BP 116/80 07/21/23 08:09 Pulse Ox 98 07/21/23 08:09 Oxygen Delivery Method Room Air 07/21/23 08:09 BMI result Body Mass Index 29.7 Tobacco/Smoking Status: Tobacco use Status Tobacco use date assessed 07/21/23 07/21/23 08:13 Patient Tobacco Use Status Current everyday Tobacco 07/21/23 08:13 Tobacco use type Cigarette 07/21/23 08:13 e-Cigarette/Vaping Use Never Used 07/21/23 08:13 Thrive Assessment: Date of Thrive Assessment Date Thrive assessed 12/21/21 07/21/23 08:13 Const General: cooperative, comfortable and no acute distress Orientation/consciousness: patient oriented x3 HENMT Head: Yes normocephalic Eyes General: appearance normal, both eyes and all related structures Neck Neck: Yes supple Resp Effort & Inspection: normal respiratory effort, no cough and no stridor Cardio Rhythm: regular rhythm Heart sounds: S1 normal heart sound present and S2 normal heart sound present Skin General skin exam: turgor normal Neuro General: patient oriented x3, tone normal and moves all extremities Extrem Right lower extremity: no edema Left lower extremity: no edema Office Procedures Flu Questionnaire Does the patient have a severe egg allergy?: No Does the patient have severe life threatening allergies?: No Does the patient have a fever or illness today?: No Has the patient ever had Guillain-Carlotta Syndrome?: No Has the patient ever had any past reaction to a flu shot?: No Immunizations flu vacc [id number] 6mos up(PF) 60 mcg(15 mcgx4)/0.5 mL IM syringe Performing Provider: Dimas Reid MD [place] [facility] [place] [facility] Administered by: Valarie Saleem CMA on 07/21/23 08:28 Dose Route Admin Location Dispensed Lot Number Expiration Date NDC Edge Sander 0.5 mL IM Right Deltoid 0.5 mL [id number] 02/04/24 09362-242-39 [employer] VIS Given Date VIS Provided VIS Publication Date 07/21/23 Single Vaccine 21 Eligibility Eligibility Date Funding Source Not 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 His blood pressure does fluctuate up. Patient disorder taking no medications he says he is stable Patient says that whenever he feels depressed he goes for a walk which helps a lot He has also modified his diet and is feeling much better than before GERD is stable with omeprazole 20 mg. Polycythemia management through hematology. Still smoking however has cut down and is trying to quit Labs are needed, I see the order already in the system placed by Hematology Follow-up early November Orders: Orders Influenza [id number] Immunization Today Z23 - Encounter for immunization Coding Level of Care Code Est Pt Level 3 (76953) Diagnoses Hypertension, essential I10 Polycythemia D75.1 Tobacco abuse Z72.0 Bipolar 1 disorder F31.9 Current use of anticoagulant therapy Z79.01 Dyspepsia R10.13
== END 2023-07-21 08:29 | disposition home or self-care (01) ==
PROVIDERS: PCP Internal Medicine; Visit Provider Internal Medicine
DX: I10 Essential (primary) hypertension (principal); D75.1 Secondary polycythemia; Z72.0 Tobacco use; F31.9 Bipolar disorder, unspecified; Z79.01 Long term (current) use of anticoagulants; R10.13 Epigastric pain; Z23 Encounter for immunization
CPT/HCPCS: 90471; 90686; 99213

== ENCOUNTER 2023-08-15 09:27 | Outpatient (AMB) | payer OTHER, SELFPAY ==
[2023-08-15 09:34] LABS: Prothrombin Time Whole Bld POC 32.4 sec (11.1-13.5); ~PT, ~INR - Anti Coag Clinic 2.7 (0.9-1.1)
--- NOTE | 2023-08-15 09:40 | MHC.OFFVISCO ---
Intake Intake Visit Reasons: Anticoagulation Allergies Seasonal Allergies Allergy (Mild, Verified 08/15/23 09:29) Itchy Eyes Medication List - Last Reconciled 08/15/23 by Lissette Coker RN amlodipine 10 mg PO DAILY 90 days atenolol 100 mg PO DAILY 90 days omeprazole 20 mg PO DAILY 90 days spironolactone 50 mg PO DAILY 90 days warfarin See Protocol 7.5mg x 6, 10mg x 1 Nursing Note INR: 2.7 in therapeutic range Medications and supplements reviewed Pt smoking less, walking and exercising a little more, eating healthier - has lost weight - appears more healthy Denies any signs and symptoms of bleeding or bruising or clotting. Bleeding, bruising, clotting discussed Nutritional guidance given- eat a mix of fruits and vegetables Dose: 10mg x 12 day/ 7.5mg x 6 days F/U INR: 1 month Patient verbalizes understanding of instructions given Anti-Coag Initial Assessment Social Hx Patient Tobacco Use Status: Current everyday Tobacco user Tobacco use type: Cigarette Smoking packs per day: 0.5 alcohol intake: former Alcohol intake frequency: does not drink Coding Level of Care Code Est Patient Level 1 Diagnoses Current use of anticoagulant therapy Z79.01 Assessment & Plan Assessment & Plan (1) Current use of anticoagulant therapy: Code(s): 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
== END 2023-08-15 09:42 | disposition home or self-care (01) ==
LOC: HO.ACS 09:27
PROVIDERS: PCP Internal Medicine; Visit Provider Internal Medicine
DX: Z79.01 Long term (current) use of anticoagulants (principal)

== ENCOUNTER → 2023-08-15 09:27 | Outpatient (BNVA) | payer OTHER, SELFPAY | PROVIDERS: PCP Internal Medicine; Visit Provider Internal Medicine | DX: D73.5 Infarction of spleen (principal); Z79.01 Long term (current) use of anticoagulants; Z51.81 Encounter for therapeutic drug level monitoring | CPT/HCPCS: 85610; 99211 ==

== ENCOUNTER 2023-09-13 09:29 | Outpatient (AMB) | payer OTHER, SELFPAY ==
--- NOTE | 2023-09-13 09:48 | MHC.OFFVISCO ---
Intake Intake Visit Reasons: Anticoagulation Allergies Seasonal Allergies Allergy (Mild, Verified 09/13/23 09:33) Itchy Eyes Medication List - Last Reconciled 09/13/23 by Lissette Coker RN amlodipine 10 mg PO DAILY 90 days atenolol 100 mg PO DAILY 90 days omeprazole 20 mg PO DAILY 90 days spironolactone 50 mg PO DAILY 90 days warfarin See Protocol 7.5mg x 6, 10mg x 1 Nursing Note INR 1.6? out of therapeutic range Medications and supplements reviewed- NO CHANGES Patient status: Walking more, eating healthier and quits smoking pt states it has been almost years since he had the clot in his spleen and wondering if he can come off warfarin, he has polythemia and enc to ask his hemetologist Dr Velez. maybe he can change to a DOAC Medications or supplements: no changes Diet: good Denies any signs and symptoms of bleeding or clotting or unusual bruising Bleeding, bruising, clotting discussed Nutritional guidance given: review food list weekly, balance diet with foods that raise and lower the INR Dose: increase to 10mg x 2 days/ 7.5mg x 5 days F/U INR Date: in 5 days 09/18/23 ?? Patient verbalizing understanding of instructions given. 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
[2023-09-13 11:17] LABS: ~PT, ~INR - Anti Coag Clinic 1.6 (0.9-1.1)
== END 2023-09-13 09:55 | disposition home or self-care (01) ==
LOC: HO.ACS 09:29
PROVIDERS: PCP Internal Medicine; Visit Provider Internal Medicine
DX: Z79.01 Long term (current) use of anticoagulants (principal)

== ENCOUNTER → 2023-09-13 09:29 | Outpatient (BNVA) | payer OTHER, SELFPAY | PROVIDERS: PCP Internal Medicine; Visit Provider Internal Medicine | DX: D73.5 Infarction of spleen (principal); Z79.01 Long term (current) use of anticoagulants; Z51.81 Encounter for therapeutic drug level monitoring | CPT/HCPCS: 85610; 99211 ==

== ENCOUNTER 2023-09-18 09:19 | Outpatient (AMB) | payer OTHER, SELFPAY ==
[2023-09-18 09:53] LABS: Prothrombin Time Whole Bld POC 26.9 sec (11.1-13.5); ~PT, ~INR - Anti Coag Clinic 2.2 (0.9-1.1)
--- NOTE | 2023-09-18 09:58 | MHC.OFFVISCO ---
Intake Intake Visit Reasons: Anticoagulation Allergies Seasonal Allergies Allergy (Mild, Verified 09/18/23 09:44) Itchy Eyes Medication List - Last Reconciled 09/18/23 by Lissette Coker RN amlodipine 10 mg PO DAILY 90 days atenolol 100 mg PO DAILY 90 days omeprazole 20 mg PO DAILY 90 days spironolactone 50 mg PO DAILY 90 days warfarin See Protocol 7.5mg x 6, 10mg x 1 Nursing Note INR: 2.2 in therapeutic range Medications and supplements reviewed No changes in health, diet, medications, or supplements, Denies any signs and symptoms of bleeding or bruising or clotting. Bleeding, bruising, clotting discussed Nutritional guidance given Dose: try increased dose again x 2 weeks 10mg x 2 days/ 7.5g x 5 days F/U INR: 2 weeks Patient verbalizes understanding of instructions given pt has polythemia whic can increase risk of blood clots- will research if DOACS can be used for prevention Anti-Coag Initial Assessment Social Hx Patient Tobacco Use Status: Current everyday Tobacco user Tobacco use type: Cigarette Smoking packs per day: 0.5 alcohol intake: former Alcohol intake frequency: does not drink Coding Level of Care Code Est Patient Level 1 Diagnoses Current use of anticoagulant therapy Z79.01 Assessment & Plan Assessment & Plan (1) Current use of anticoagulant therapy: Code(s): Z79.01 - senior care (current) use of anticoagulants Category: Medical
== END 2023-09-18 10:01 | disposition home or self-care (01) ==
LOC: HO.ACS 09:19
PROVIDERS: PCP Internal Medicine; Visit Provider Internal Medicine
DX: Z79.01 Long term (current) use of anticoagulants (principal)

== ENCOUNTER → 2023-09-18 09:19 | Outpatient (BNVA) | payer OTHER, SELFPAY | PROVIDERS: PCP Internal Medicine; Visit Provider Internal Medicine | DX: D73.5 Infarction of spleen (principal); Z79.01 Long term (current) use of anticoagulants; Z51.81 Encounter for therapeutic drug level monitoring | CPT/HCPCS: 85610; 99211 ==

== ENCOUNTER 2023-10-20 08:48 | Outpatient (AMB) | payer OTHER, SELFPAY ==
--- NOTE | 2023-10-20 08:56 | MHC.OFFVISCO ---
Intake Intake Visit Reasons: Anticoagulation Allergies Seasonal Allergies Allergy (Mild, Verified 10/20/23 08:51) Itchy Eyes Medication List - Last Reconciled 10/20/23 by Bia Briggs RN amlodipine 10 mg PO DAILY 90 days atenolol 100 mg PO DAILY 90 days diphenhydramine HCl (Benadryl Allergy) 25 mg PO BEDTIME PRN omeprazole 20 mg PO DAILY 90 days spironolactone 50 mg PO DAILY 90 days warfarin See Protocol 7.5mg x 6, 10mg x 1 Nursing Note INR: 2.2- in therapeutic range of 2-3 Medications and supplements reviewed- taking benadryl prn for allergies- no interaction per micromedex No changes in health, diet, medications, or supplements, Denies any signs and symptoms of bleeding or bruising or clotting. 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
[2023-10-20 08:57] LABS: Prothrombin Time Whole Bld POC 26.4 sec (11.1-13.5); ~PT, ~INR - Anti Coag Clinic 2.2 (0.9-1.1)
== END 2023-10-20 09:05 | disposition home or self-care (01) ==
LOC: HO.ACS 08:48
PROVIDERS: PCP Internal Medicine; Visit Provider Internal Medicine
DX: Z79.01 Long term (current) use of anticoagulants (principal)

== ENCOUNTER → 2023-10-20 08:48 | Outpatient (BNVA) | payer OTHER, SELFPAY | PROVIDERS: PCP Internal Medicine; Visit Provider Internal Medicine | DX: D73.5 Infarction of spleen (principal); Z79.01 Long term (current) use of anticoagulants; Z51.81 Encounter for therapeutic drug level monitoring | CPT/HCPCS: 85610; 99211 ==

== ENCOUNTER 2023-11-17 08:57 | Outpatient (AMB) | payer OTHER, SELFPAY ==
--- NOTE | 2023-11-17 09:02 | MHC.OFFVISCO ---
Intake Intake Visit Reasons: Anticoagulation Allergies Seasonal Allergies Allergy (Mild, Verified 11/17/23 08:58) Itchy Eyes Medication List - Last Reconciled 11/17/23 by Bia Briggs RN amlodipine 10 mg PO DAILY 90 days atenolol 100 mg PO DAILY 90 days diphenhydramine HCl (Benadryl Allergy) 25 mg PO BEDTIME PRN omeprazole 20 mg PO DAILY 90 days spironolactone 50 mg PO DAILY 90 days warfarin See Protocol 7.5mg x 6, 10mg x 1 Nursing Note INR: 2.4- in therapeutic range of 2-3 Medications and supplements reviewed No changes in health, diet, medications, or supplements, Denies any signs and symptoms of bleeding or bruising or clotting. Bleeding, bruising, clotting discussed Nutritional guidance given Dose: 10mg x 2, 7.5mg x 5 F/U INR: 4 weeks Patient verbalizes understanding of instructions given pt states has pcp appt today, he may request nicotine patches for smoking cessation- no interaction with warfarin per micromedex Anti-Coag Initial Assessment Social Hx Patient Tobacco Use Status: Current everyday Tobacco user Tobacco use type: Cigarette Smoking packs per day: 0.5 alcohol intake: former Alcohol intake frequency: does not drink Coding Level of Care Code Est Patient Level 1 Diagnoses Current use of anticoagulant therapy Z79.01 Results AMB INR Fingerstick AMB INR Fingerstick 2.4 Last Edit by Bia Briggs RN on 11/17/23 09:04 Assessment & Plan Assessment & Plan (1) Current use of anticoagulant therapy: Code(s): Z79.01 - butt maker (current) use of anticoagulants Category: Medical Medications: Changed From warfarin See Protocol 7.5mg x 6, 10mg x 1 To warfarin See Protocol 7.5mg x 5, 10mg x 2
[2023-11-17 09:12] LABS: Prothrombin Time Whole Bld POC 28.3 sec (11.1-13.5); ~PT, ~INR - Anti Coag Clinic 2.4 (0.9-1.1)
== END 2023-11-17 09:11 | disposition home or self-care (01) ==
LOC: HO.ACS 08:57
PROVIDERS: PCP Internal Medicine; Visit Provider Internal Medicine
DX: Z79.01 Long term (current) use of anticoagulants (principal)

== ENCOUNTER → 2023-11-17 08:57 | Outpatient (BNVA) | payer OTHER, SELFPAY | PROVIDERS: PCP Internal Medicine; Visit Provider Internal Medicine | DX: I74.8 Embolism and thrombosis of other arteries (principal); Z79.01 Long term (current) use of anticoagulants; Z51.81 Encounter for therapeutic drug level monitoring | CPT/HCPCS: 85610; 99211 ==

== ENCOUNTER 2023-11-17 10:44 | Outpatient (AMB) | payer OTHER, SELFPAY ==
[2023-11-17 10:46] VITALS: BP 136/80; PULSE 78; O2SAT 97; BMI 29.2
--- NOTE | 2023-11-17 10:46 | MHC.PC.OV ---
Vital Signs 11/17/23 10:46 Height 5 ft 9 in Weight 197 lb 8 oz BMI 29.2 BP 136/80 Blood Pressure Location Lt brachial Position Sitting Pulse 78 Pulse Source Pulse Oximeter Pulse Oximetry (%) 97 Oxygen Delivery Method Room Air Intake Visit Reasons: 4 month fu Accompanied by: Self / Same As Patient Allergies Seasonal Allergies Allergy (Mild, Verified 11/17/23 10:47) Itchy Eyes Medication List - Last Reconciled 11/17/23 by Dimas Reid MD amlodipine 10 mg PO DAILY 90 days atenolol 100 mg PO DAILY 90 days diphenhydramine HCl (Benadryl Allergy) 25 mg PO BEDTIME PRN omeprazole 20 mg PO DAILY 90 days spironolactone 50 mg PO DAILY 90 days warfarin See Protocol 7.5mg x 5, 10mg x 2 Tobacco use date assessed: 11/17/23 Dental Screening Dental Screen Date: 11/17/23 Did you have a dental visit in the last 12 months?: No Did you have a dental problem in the last 6 months where you did not have access to dental care?: No Was dental information given to patient?: Yes HPI 4 month fu HPI Details Patient is a 58-year-old male came in today for his regular follow-up appointment He is due for labs ordered by Dr. Velez Patient is smoking 1 pack per day, he says that he is ready to quit, requesting Nicoderm patches 21 mg patch sent with 1 refill, patient is to get back to [facility] end of 2 months if he has stopped smoking so I can send in 14 mg patch Hypertension: Patient is taking amlodipine 10 mg, atenolol 100 mg and spironolactone 50 mg. His blood pressure is stable Patient have a diagnosis of bipolar disorder but taking no medications, he is stable GERD is stable with omeprazole 20 mg. Polycythemia management through hematology. He will return in 4 months for follow-up appointment to [facility] Medical History Anxiety, generalized Tobacco abuse Dyspepsia Splenic vein thrombosis Hepatitis C antibody positive in blood Hypertension, essential Bipolar 1 disorder Surgical History History of surgery History of tonsillectomy Family History Father HTN (hypertension) Mother HTN (hypertension) Brother HTN (hypertension) Maternal Grandfather No problems noted. Maternal Grandmother No problems noted. Paternal Grandfather No problems noted. Paternal Grandmother No problems noted. Brother No problems noted. Sister No problems noted. Daughter No problems noted. Other Substance use disorder Social History Household Members: [facility] Are you a primary skin care instructor to a significant other at home: No Do you presently have visiting nurse or other home services: No Alcohol intake: former Patient Tobacco Use Status: Current everyday Tobacco user Tobacco use type: Cigarette Cigarette Packs Per Day: 0.5 Years Smoked: 17 e-Cigarette/Vaping Use: Never Used Substance Use Type: Marijuana service: No Current occupational status: disabled Cognitive needs: No Hearing needs: No Vision needs: Yes Questionnaire PHQ-9 Over the last 2 weeks, how often have you been bothered by any of the following problems? 1. Little interest or pleasure in doing things: not at all 2. Feeling down, depressed, or hopeless: several days 3. Trouble falling or staying asleep, or sleeping too much: several days 4. Feeling tired or having little energy: several days 5. Poor appetite or overeating: not at all 6. Feeling bad about yourself - or that you are a failure or have let yourself or your family down: several days 7. Trouble concentrating on things, such as reading the newspaper or watching television: several days 8. Moving or speaking so slowly that other people could have noticed. Or the opposite - being so fidgety or restless that you have been moving around a lot more than usual: several days 9. Thoughts that you would be better off or of hurting yourself in some way: not at all Total score: 6 Depression Screening Interpretation: Positive Depression Screening Done: Yes 41658 - PHQ-9 Billing: Yes Source: Developed by Drs. Vivek Sims, Saadia Harris, French Correia and colleagues, with an educational azeem from [employer]. Thrive Questionnaire Date Thrive assessed: 12/21/21 AUDIT C Alcohol Use Questionnaire (AUDIT-C) 1. How often do you have a drink containing alcohol?: Never 3. How often do you have six or more drinks on one occasion?: Never Total Score: 0 Score Reviewed/Action Taken: Yes SHRADDHA-7 AMB Questionnaire SHRADDHA-7 Date SHRADDHA - 7 assessed: 11/17/23 Feeling nervous, anxious, or on edge: 2 = More than half the days Not being able to stop or control worryin = More than half the days Worrying too much about different things: 2 = More than half the days Trouble relaxin = Nearly every day Being so restless that it is hard to sit still: 3 = Nearly every day Becoming easily annoyed or irritable: 1 = Several days Feeling afraid as if something awful might happen: 0 = Not at all Total SHRADDHA-7 score (0-4 normal; 5-9 mild; 10-14 moderate; 15-21 severe): 13 Source: Developed by Drs. Vivek Sims, Saadia Harris, French Correia and colleagues, with an educational azeem from [employer]. SHRADDHA-7 Assessment Billing SHRADDHA-7 Assessment Tool: SHRADDHA-7 Assessment 25039 Review of Systems Const Denies chills and Denies fever(s) ENT Denies epistaxis and Denies nasal discharge Card Denies chest pain Resp Denies chest congestion, Denies cough and Denies hemoptysis GI Denies diarrhea and Denies nausea Skin/Breast Denies rash Neuro Reports no additional complaints Psych Reports no additional complaints Endo Reports no additional complaints Physical exam (Primary Care) Vital Signs: Last Vital Signs Pulse 78 11/17/23 10:46 BP 136/80 11/17/23 10:46 Pulse Ox 97 11/17/23 10:46 Oxygen Delivery Method Room Air 11/17/23 10:46 BMI result Body Mass Index 29.2 Tobacco/Smoking Status: Tobacco use Status Tobacco use date assessed 11/17/23 11/17/23 10:51 Patient Tobacco Use Status Current everyday Tobacco 11/17/23 10:51 Tobacco use type Cigarette 11/17/23 10:51 e-Cigarette/Vaping Use Never Used 11/17/23 10:51 PHQ-9: PHQ-9 Score PHQ-9: Total score 6 11/17/23 11:03 Depression Screening Interpretation: Positive Thrive Assessment: Date of Thrive Assessment Date Thrive assessed 12/21/21 11/17/23 10:51 Const General: cooperative, comfortable and no acute distress Orientation/consciousness: patient oriented x3 HENMT Head: Yes normocephalic Eyes General: appearance normal, both eyes and all related structures Neck Neck: Yes supple Resp Effort & Inspection: normal respiratory effort, no cough and no stridor Cardio Rhythm: regular rhythm Heart sounds: S1 normal heart sound present and S2 normal heart sound present Skin General skin exam: turgor normal Neuro General: patient oriented x3, tone normal and moves all extremities Extrem Right lower extremity: no edema Left lower extremity: no edema Results AMB INR Fingerstick AMB INR Fingerstick 2.4 Last Edit by Bia Briggs RN on 11/17/23 09:04 Assessment and Plan Assessment & Plan (1) Hypertension, essential: Code(s): I10 - Essential (primary) hypertension (2) Polycythemia: Code(s): D75.1 - Secondary polycythemia (3) Tobacco abuse: Comment: Patient was instructed to stop smoking as soon as possible, and if he need any assistance he is to let me know Code(s): Z72.0 - Tobacco use (4) Bipolar 1 disorder: Code(s): F31.9 - Bipolar disorder, unspecified (5) Current use of anticoagulant therapy: Code(s): Z79.01 - technician terminal and repeater (current) use of anticoagulants (6) Dyspepsia: Code(s): R10.13 - Epigastric pain Plan Patient is a 58-year-old male came in today for his regular follow-up appointment He is due for labs ordered by Dr. Velez Patient is smoking 1 pack per day, he says that he is ready to quit, requesting Nicoderm patches 21 mg patch sent with 1 refill, patient is to get back to [facility] end of 2 months if he has stopped smoking so I can send in 14 mg patch Hypertension: Patient is taking amlodipine 10 mg, atenolol 100 mg and spironolactone 50 mg. His blood pressure is stable Patient have a diagnosis of bipolar disorder but taking no medications, he is stable GERD is stable with omeprazole 20 mg. Polycythemia management through hematology. He will return in 4 months for follow-up appointment to Medications: New nicotine (Nicoderm CQ) 1 patch transdermal Q24H 28 ea 1RF Coding Level of Care Code Est Pt Level 4 (25539) Diagnoses Hypertension, essential I10 Polycythemia D75.1 Tobacco abuse Z72.0 Bipolar 1 disorder F31.9 Current use of anticoagulant therapy Z79.01 Dyspepsia R10.13 Additional Codes SHRADDHA-7 Assessment Billing - SHRADDHA-7 Assessment Tool: SHRADDHA-7 Assessment 08772 ([id number])
== END 2023-11-17 16:38 | disposition home or self-care (01) ==
PROVIDERS: PCP Internal Medicine; Visit Provider Internal Medicine
DX: I10 Essential (primary) hypertension (principal); D75.1 Secondary polycythemia; Z72.0 Tobacco use; F31.9 Bipolar disorder, unspecified; Z79.01 Long term (current) use of anticoagulants; R10.13 Epigastric pain
CPT/HCPCS: 99214

== ENCOUNTER 2023-11-17 11:01 | Outpatient (REF) | payer OTHER, SELFPAY ==
[2023-11-17 13:37] LABS: MANUAL DIFF FLAG NO
[2023-11-17 13:53] LABS: Basophils Percent Auto 0.2 % (0-2); Eosinophils Percent Auto 0.4 % (0-4); Hematocrit 47.9 % (42.0-52.0); Imm Gran Abs Auto 0.01 X10*3/uL (0.00-0.03); Imm Gran Pct Auto 0.2 % (0.0-0.4); Lymphocytes Absolute Auto 1.1 X10*3/uL (1.2-4.9); Mean Corpuscular HGB Conc 31.3 g/dl (31.0-36.0); Mean Corpuscular Volume 79.7 fL (80.0-98.0); Mean Platelet Volume 11.3 fL (9.4-12.4); Monocytes Absolute Auto 0.4 X10*3/uL (0.1-1.2); Monocytes Percent Auto 7.1 % (2-11); Neutrophils Absolute Auto 4.1 x10*3/uL (2.0-8.3); Neutrophils Percent Auto 73.1 % (45-73); Platelet Count 180 X10*3/uL (160-400); Red Blood Count 6.01 X10*6/uL (4.60-5.80); Red Cell Distribution Width 15.9 % (11.0-16.0); White Blood Count 5.6 X10*3/uL (4.8-10.8)
[2023-11-17 14:20] LABS: Alanine Aminotransferase 21 U/L (0-40); Albumin Level 4.1 g/dL (3.5-5.0); Alkaline Phosphatase 76 U/L (39-117); Anion Gap 11 (12-20); Aspartate Amino Transferase 19 U/L (5-37); Bilirubin Total 0.5 mg/dL (0.0-1.0); Blood Urea Nitrogen 16 mg/dL (9-16); Calcium 9.5 mg/dL (8.4-10.2); Carbon Dioxide 27 mmol/L (22-29); Chloride 108 mmol/L (96-108); Estimated Glomerular Filt Rate > 60; Glucose Random 119 mg/dL (60-115); Potassium 4.9 mmol/L (3.3-5.1); Sodium 141 mmol/L (135-145); Total Protein 7.1 g/dL (6.5-8.0)
== END 2023-11-17 11:02 | disposition home or self-care (01) ==
LOC: HO.HMGCLDS 11:01
PROVIDERS: PCP Internal Medicine; Visit Provider Internal Medicine Medical Oncology
DX: D75.1 Secondary polycythemia (principal)
CPT/HCPCS: 36415; 80053; 85025

== ENCOUNTER 2023-12-01 13:53 | Outpatient (REF) | payer OTHER, SELFPAY | END 2023-12-01 13:54 | disposition home or self-care (01) | LOC: HO.BBR 13:53 | PROVIDERS: PCP Internal Medicine; Visit Provider Internal Medicine Medical Oncology | DX: D75.1 Secondary polycythemia (principal) | CPT/HCPCS: 85018; 99195 ==

== ENCOUNTER 2023-12-15 09:22 | Outpatient (AMB) | payer OTHER, SELFPAY ==
[2023-12-15 09:28] LABS: Prothrombin Time Whole Bld POC 37.3 sec (11.1-13.5); ~PT, ~INR - Anti Coag Clinic 3.1 (0.9-1.1)
--- NOTE | 2023-12-15 09:34 | MHC.OFFVISCO ---
Intake Intake Visit Reasons: Anticoagulation Allergies Seasonal Allergies Allergy (Mild, Verified 12/15/23 09:22) Itchy Eyes Medication List - Last Reconciled 12/15/23 by Lissette Coker RN amlodipine 10 mg PO DAILY 90 days atenolol 100 mg PO DAILY 90 days diphenhydramine HCl (Benadryl Allergy) 25 mg PO BEDTIME PRN nicotine (Nicoderm CQ) 1 patch transdermal Q24H omeprazole 20 mg PO DAILY 90 days spironolactone 50 mg PO DAILY 90 days warfarin See Protocol 7.5mg x 5, 10mg x 2 Nursing Note INR: 3.1 ALMOST in therapeutic range Medications and supplements reviewed HAS DESIRE TO QUICK SMOKING AND NOW ON NICOTEINE PATCH X 1 MONTH WITH THE CHAY, Denies any signs and symptoms of bleeding or bruising or clotting. Bleeding, bruising, clotting discussed Nutritional guidance given - EAT MORE GREENS NOW THAT STOPPED SMOKING IT RAISES YOUR INR Dose: 10MG X 2 DAYS/ 7.5MG X 5 DAYS F/U INR: 4 WEEKS Patient verbalizes understanding of instructions given Anti-Coag Initial Assessment Social Hx Patient Tobacco Use Status: Current everyday Tobacco user Tobacco use type: Cigarette Smoking packs per day: 0.5 alcohol intake: former Alcohol intake frequency: does not drink Coding Level of Care Code Est Patient Level 1 Diagnoses Current use of anticoagulant therapy Z79.01 Assessment & Plan Assessment & Plan (1) Current use of anticoagulant therapy: Code(s): Z79.01 - care home (current) use of anticoagulants Category: Medical
== END 2023-12-15 09:38 | disposition home or self-care (01) ==
LOC: HO.ACS 09:22
PROVIDERS: PCP Internal Medicine; Visit Provider Internal Medicine
DX: Z79.01 Long term (current) use of anticoagulants (principal)

== ENCOUNTER → 2023-12-15 09:22 | Outpatient (BNVA) | payer OTHER, SELFPAY | PROVIDERS: PCP Internal Medicine; Visit Provider Internal Medicine | DX: I82.890 Acute embolism and thrombosis of other specified veins (principal); Z51.81 Encounter for therapeutic drug level monitoring; Z79.01 Long term (current) use of anticoagulants | CPT/HCPCS: 85610; 99211 ==

== ENCOUNTER 2024-01-12 09:02 | Outpatient (AMB) | payer OTHER, SELFPAY ==
[2024-01-12 09:11] LABS: Prothrombin Time Whole Bld POC 46.4 sec (11.1-13.5); ~PT, ~INR - Anti Coag Clinic 3.9 (0.9-1.1)
--- NOTE | 2024-01-12 09:22 | MHC.OFFVISCO ---
Intake Intake Visit Reasons: Anticoagulation Allergies Seasonal Allergies Allergy (Mild, Verified 01/12/24 09:06) Itchy Eyes Medication List - Last Reconciled 01/12/24 by Adina Acevedo, RN amlodipine 10 mg PO DAILY 90 days atenolol 100 mg PO DAILY 90 days diphenhydramine HCl (Benadryl Allergy) 25 mg PO BEDTIME PRN nicotine (Nicoderm CQ) 1 patch transdermal Q24H omeprazole 20 mg PO DAILY 90 days spironolactone 50 mg PO DAILY 90 days warfarin See Protocol 7.5mg x 5, 10mg x 2 Nursing Note INR 3.9?out of therapeutic range of 2-3 Medications and supplements reviewed Patient status: well. Stopped smoking 2 months ago and is doing well Medications or supplements: no changes Diet: usual diet for pt Denies any signs and symptoms of bleeding or clotting or unusual bruising Bleeding, bruising, clotting discussed Nutritional guidance given: to have a serving of greens today Dose: decrease today's dose to 5mg (7.5mg) then decrease weekly dose to 7.5mg X 6 days and 10 mg X 1 day (decreased from 2 days) F/U INR Date : 2 weeks?? Patient verbalizing understanding of instructions given. Anti-Coag Initial Assessment Social Hx Patient Tobacco Use Status: Current everyday Tobacco user Tobacco use type: Cigarette Smoking packs per day: 0.5 alcohol intake: former Alcohol intake frequency: does not drink Coding Level of Care Code Est Patient Level 1 Diagnoses Current use of anticoagulant therapy Z79.01 Assessment & Plan Assessment & Plan (1) Current use of anticoagulant therapy: Code(s): Z79.01 - [facility] (current) use of anticoagulants Category: Medical
== END 2024-01-12 09:25 | disposition home or self-care (01) ==
LOC: HO.ACS 09:02
PROVIDERS: PCP Internal Medicine; Visit Provider Internal Medicine
DX: Z79.01 Long term (current) use of anticoagulants (principal)

== ENCOUNTER → 2024-01-12 09:02 | Outpatient (BNVA) | payer OTHER, SELFPAY | PROVIDERS: PCP Internal Medicine; Visit Provider Internal Medicine | DX: I82.890 Acute embolism and thrombosis of other specified veins (principal); Z79.01 Long term (current) use of anticoagulants; Z51.81 Encounter for therapeutic drug level monitoring | CPT/HCPCS: 85610; 99211 ==

== ENCOUNTER 2024-01-26 08:53 | Outpatient (AMB) | payer OTHER, SELFPAY ==
--- NOTE | 2024-01-26 09:11 | MHC.OFFVISCO ---
Intake Intake Visit Reasons: Anticoagulation Allergies Seasonal Allergies Allergy (Mild, Verified 01/26/24 09:06) Itchy Eyes Medication List - Last Reconciled 01/26/24 by Bia Briggs RN amlodipine 10 mg PO DAILY 90 days atenolol 100 mg PO DAILY 90 days diphenhydramine HCl (Benadryl Allergy) 25 mg PO BEDTIME PRN omeprazole 20 mg PO DAILY 90 days spironolactone 50 mg PO DAILY 90 days warfarin See Protocol 7.5mg x 5, 10mg x 2 Nursing Note INR 3.2-? out of therapeutic range Medications and supplements reviewed Patient status: quit smoking approx 2 months ago- has one cig a day Medications or supplements: stopped nicotine patch in december Diet: same Denies any signs and symptoms of bleeding or clotting or unusual bruising Bleeding, bruising, clotting discussed Nutritional guidance given: eat greens to lower Dose: F/U INR Date : 2 weeks? Patient verbalizing understanding of instructions given. Anti-Coag Initial Assessment Social Hx Patient Tobacco Use Status: Current everyday Tobacco user Tobacco use type: Cigarette Smoking packs per day: 0.5 alcohol intake: former Alcohol intake frequency: does not drink Coding Level of Care Code Est Patient Level 1 Diagnoses Current use of anticoagulant therapy Z79.01 Assessment & Plan Assessment & Plan (1) Current use of anticoagulant therapy: Code(s): Z79.01 - termination clerk (current) use of anticoagulants Category: Medical Medications: Discontinued nicotine (Nicoderm CQ) Discontinued Reason: Patient no longer taking 1 patch transdermal Q24H 28 ea 1RF
[2024-01-26 09:12] LABS: Prothrombin Time Whole Bld POC 38.9 sec (11.1-13.5); ~PT, ~INR - Anti Coag Clinic 3.2 (0.9-1.1)
== END 2024-01-26 09:18 | disposition home or self-care (01) ==
LOC: HO.ACS 08:53
PROVIDERS: PCP Internal Medicine; Visit Provider Internal Medicine
DX: Z79.01 Long term (current) use of anticoagulants (principal)

== ENCOUNTER → 2024-01-26 08:53 | Outpatient (BNVA) | payer OTHER, SELFPAY | PROVIDERS: PCP Internal Medicine; Visit Provider Internal Medicine | DX: D73.5 Infarction of spleen (principal); Z79.01 Long term (current) use of anticoagulants; Z51.81 Encounter for therapeutic drug level monitoring | CPT/HCPCS: 85610; 99211 ==

== ENCOUNTER 2024-02-15 11:39 | Outpatient (AMB) | payer OTHER, SELFPAY ==
[2024-02-15 11:45] LABS: Prothrombin Time Whole Bld POC 45.2 sec (11.1-13.5); ~PT, ~INR - Anti Coag Clinic 3.8 (0.9-1.1)
--- NOTE | 2024-02-15 11:51 | MHC.OFFVISCO ---
Intake Intake Visit Reasons: Anticoagulation Allergies Seasonal Allergies Allergy (Mild, Verified 02/15/24 11:40) Itchy Eyes Medication List - Last Reconciled 02/15/24 by Lissette Coker RN amlodipine 10 mg PO DAILY 90 days atenolol 100 mg PO DAILY 90 days diphenhydramine HCl (Benadryl Allergy) 25 mg PO BEDTIME PRN nicotine (Nicoderm CQ) 1 patch transdermal DAILY omeprazole 20 mg PO DAILY 90 days spironolactone 50 mg PO DAILY 90 days warfarin See Protocol 7.5mg x 5, 10mg x 2 Nursing Note Pt came by to state he has not been able to make it to appt for various reasons, however now planning to have dental extractions in the near future, coming in to have MD sign approval /clearance. Performed INR incase needed for extractions. INR 3.8? out of therapeutic range Medications and supplements reviewed Patient status: diet changes due to work and extreme heat, smoking less, lost 30 lbs Medications or supplements: mayy go back on nicotine patch Diet: not usual diet Denies any signs and symptoms of bleeding or clotting or unusual bruising Bleeding, bruising, clotting discussed Nutritional guidance given: review food list weekly, eat a mix of fruits and vegetables - greens today and weekly Dose: 2.5 mg today then try 7.5mg daily if still elevated next week decrease weekly dose F/U INR Date : 1 week 02/22/24?? Patient verbalizing understanding of instructions given. Anti-Coag Initial Assessment Social Hx Patient Tobacco Use Status: Current everyday Tobacco user Tobacco use type: Cigarette Smoking packs per day: 0.5 alcohol intake: former Alcohol intake frequency: does not drink Coding Level of Care Code Est Patient Level 1 Diagnoses Current use of anticoagulant therapy Z79.01 Results AMB INR Fingerstick AMB INR Fingerstick 3.8 Last Edit by Lissette Coker RN on 02/15/24 11:46 manual entry Assessment & Plan Assessment & Plan (1) Current use of anticoagulant therapy: Code(s): Z79.01 - [facility] (current) use of anticoagulants Category: Medical
== END 2024-02-15 11:55 | disposition home or self-care (01) ==
LOC: HO.ACS 11:39
PROVIDERS: PCP Internal Medicine; Visit Provider Internal Medicine
DX: Z79.01 Long term (current) use of anticoagulants (principal)

== ENCOUNTER → 2024-02-15 11:39 | Outpatient (BNVA) | payer OTHER, SELFPAY | PROVIDERS: PCP Internal Medicine; Visit Provider Internal Medicine | DX: D73.5 Infarction of spleen (principal); Z79.01 Long term (current) use of anticoagulants; Z51.81 Encounter for therapeutic drug level monitoring | CPT/HCPCS: 85610; 99211 ==

== ENCOUNTER 2024-02-22 09:16 | Outpatient (AMB) | payer OTHER, SELFPAY ==
--- NOTE | 2024-02-22 09:36 | MHC.OFFVISCO ---
Intake Intake Visit Reasons: Anticoagulation Allergies Seasonal Allergies Allergy (Mild, Verified 02/22/24 09:17) Itchy Eyes Medication List - Last Reconciled 02/22/24 by Lissette Coker RN amlodipine 10 mg PO DAILY 90 days atenolol 100 mg PO DAILY 90 days diphenhydramine HCl (Benadryl Allergy) 25 mg PO BEDTIME PRN nicotine (Nicoderm CQ) 1 patch transdermal DAILY omeprazole 20 mg PO DAILY 90 days spironolactone 50 mg PO DAILY 90 days warfarin See Protocol 7.5mg x 5, 10mg x 2 Nursing Note INR 3.3 out of therapeutic range Medications and supplements reviewed Patient status: STOPPED SMOKING FOR SEVERAL MONTHS AND RESTARTED JUST A FEW A DAY PT TO HAVE 9 DENTAL EXTRACTIONS 03/12/24 - DR TOMAS CLEARED HIM FOR A 5 DAY HOLD IF NEEDED, PT TO ASK ORAL SURGE HOW MANY DAYS NEEDED AND IF INR REQUIRED DAY BEFORE, NO LOVENOX INSTRUCTIONS AT THIS TIME - WILL VERIFY WITH DR TOMAS. Medications or supplements: NO Diet: GOOD - LESS WITH THE HEAT Denies any signs and symptoms of bleeding or clotting or unusual bruising Bleeding, bruising, clotting discussed Nutritional guidance given: EAT A MIX OF FRUITS AND VEGETEABLES Dose: 5MG X 2 DAYS/ 7.5MG X 5 DAYS WITH DECREASED APPETITE F/U INR Date : 12 DAYS 1 WEEK PRIOR EXTRACTIONS ?? Patient verbalizing understanding of instructions given. Anti-Coag Initial Assessment Social Hx Patient Tobacco Use Status: Current everyday Tobacco user Tobacco use type: Cigarette Smoking packs per day: 0.5 alcohol intake: former Alcohol intake frequency: does not drink Coding Level of Care Code Est Patient Level 1 Diagnoses Current use of anticoagulant therapy Z79.01 Results AMB INR Fingerstick AMB INR Fingerstick 3.3 Last Edit by Lissette Coker RN on 02/22/24 09:23 MANUAL ENTRY Assessment & Plan Assessment & Plan (1) Current use of anticoagulant therapy: Code(s): Z79.01 - terminologist (current) use of anticoagulants Category: Medical
[2024-02-22 09:54] LABS: Prothrombin Time Whole Bld POC 39.6 sec (11.1-13.5); ~PT, ~INR - Anti Coag Clinic 3.3 (0.9-1.1)
== END 2024-02-22 09:42 | disposition home or self-care (01) ==
LOC: HO.ACS 09:16
PROVIDERS: PCP Internal Medicine; Visit Provider Internal Medicine
DX: Z79.01 Long term (current) use of anticoagulants (principal)

== ENCOUNTER → 2024-02-22 09:16 | Outpatient (BNVA) | payer OTHER, SELFPAY | PROVIDERS: PCP Internal Medicine; Visit Provider Internal Medicine | DX: D73.5 Infarction of spleen (principal); Z79.01 Long term (current) use of anticoagulants; Z51.81 Encounter for therapeutic drug level monitoring | CPT/HCPCS: 85610; 99211 ==

== ENCOUNTER 2024-03-05 08:54 | Outpatient (AMB) | payer OTHER, SELFPAY ==
--- NOTE | 2024-03-05 09:15 | MHC.OFFVISCO ---
Intake Intake Visit Reasons: Anticoagulation Allergies Seasonal Allergies Allergy (Mild, Verified 03/05/24 08:55) Itchy Eyes Medication List - Last Reconciled 03/05/24 by Bia Briggs RN amlodipine 10 mg PO DAILY 90 days atenolol 100 mg PO DAILY 90 days diphenhydramine HCl (Benadryl Allergy) 25 mg PO BEDTIME PRN enoxaparin (Lovenox) 80 mg (0.8 mL) subcut Q12H omeprazole 20 mg PO DAILY 90 days spironolactone 50 mg PO DAILY 90 days warfarin See Protocol 7.5mg x 5, 10mg x 2 Nursing Note INR: 2.0- in therapeutic range of 2-3 Medications and supplements reviewed No changes in health, diet, medications, or supplements, Denies any signs and symptoms of bleeding or bruising or clotting. Bleeding, bruising, clotting discussed Nutritional guidance given Dose: hold warfarin starting tomm for 6 days, with lovenox bridge per dr martinez F/U INR: 03/15/24 Patient verbalizes understanding of instructions given pt given written instructions for warfarin hold and lovenox bridging pt to have dental extractions x 9 on 03/12/24 Anti-Coag Initial Assessment Social Hx Patient Tobacco Use Status: Current everyday Tobacco user Tobacco use type: Cigarette Smoking packs per day: 0.5 alcohol intake: former Alcohol intake frequency: does not drink Coding Level of Care Code Est Patient Level 2 Diagnoses Current use of anticoagulant therapy Z79.01 Assessment & Plan Assessment & Plan (1) Current use of anticoagulant therapy: Code(s): Z79.01 - intermediate (current) use of anticoagulants Category: Medical
[2024-03-05 09:16] LABS: Prothrombin Time Whole Bld POC 24.3 sec (11.1-13.5)
== END 2024-03-05 09:24 | disposition home or self-care (01) ==
LOC: HO.ACS 08:54
PROVIDERS: PCP Internal Medicine; Visit Provider Internal Medicine
DX: Z79.01 Long term (current) use of anticoagulants (principal)

== ENCOUNTER → 2024-03-05 08:54 | Outpatient (BNVA) | payer OTHER, SELFPAY | PROVIDERS: PCP Internal Medicine; Visit Provider Internal Medicine | DX: D73.5 Infarction of spleen (principal); Z79.01 Long term (current) use of anticoagulants; Z51.81 Encounter for therapeutic drug level monitoring | CPT/HCPCS: 85610; 99212 ==

== ENCOUNTER 2024-03-15 09:20 | Outpatient (AMB) | payer OTHER, SELFPAY ==
[2024-03-15 09:33] LABS: Prothrombin Time Whole Bld POC 13.2 sec (11.1-13.5); ~PT, ~INR - Anti Coag Clinic 1.1 (0.9-1.1)
--- NOTE | 2024-03-15 09:44 | MHC.OFFVISCO ---
Intake Intake Visit Reasons: Anticoagulation Allergies Seasonal Allergies Allergy (Mild, Verified 03/15/24 09:25) Itchy Eyes Medication List - Last Reconciled 03/15/24 by Adina Acevedo, RN amlodipine 10 mg PO DAILY 90 days atenolol 100 mg PO DAILY 90 days diphenhydramine HCl (Benadryl Allergy) 25 mg PO BEDTIME PRN enoxaparin (Lovenox) 80 mg See Protocol subcut Q12H omeprazole 20 mg PO DAILY 90 days spironolactone 50 mg PO DAILY 90 days warfarin See Protocol 7.5mg x 5, 10mg x 2 Nursing Note Pt to [facility] s/p extraction of 9 teeth on 03/12/24. Had a 6 day hold of warfarin. Is taking lovenox bid. Not eating much, just yogurt and cottage cheese. INR 1.1?out of therapeutic range 2-3 Medications and supplements reviewed Patient status: pt states he feels well Medications or supplements: started amoxicillan on 03/12/24 post extraction. Denies any signs and symptoms of bleeding or clotting or unusual bruising Bleeding, bruising, clotting discussed Nutritional guidance given: to try a protein shake once a day and then try to have cranberry juice, strawberries in his yogurt, and peanut butter all of which pt states he likes and will try. Food list reviewed. Dose: 10mg today (7.5mg) and then 7.5mg daily Pt understands he needs to continue lovenox 2X/day F/U INR Date : in 4 days on 03/19/24?? Patient verbalizing understanding of instructions given. Anti-Coag Initial Assessment Social Hx Patient Tobacco Use Status: Current everyday Tobacco user Tobacco use type: Cigarette Smoking packs per day: 0.5 alcohol intake: former Alcohol intake frequency: does not drink Coding Level of Care Code Est Patient Level 2 Diagnoses Current use of anticoagulant therapy Z79.01 Time Spent (min) 30 Assessment & Plan Assessment & Plan (1) Current use of anticoagulant therapy: Code(s): Z79.01 - terminal computer operator (current) use of anticoagulants Category: Medical
== END 2024-03-15 09:53 | disposition home or self-care (01) ==
LOC: HO.ACS 09:20
PROVIDERS: PCP Internal Medicine; Visit Provider Internal Medicine
DX: Z79.01 Long term (current) use of anticoagulants (principal)

== ENCOUNTER → 2024-03-15 09:20 | Outpatient (BNVA) | payer OTHER, SELFPAY | PROVIDERS: PCP Internal Medicine; Visit Provider Internal Medicine | DX: D73.5 Infarction of spleen (principal); Z79.01 Long term (current) use of anticoagulants; Z51.81 Encounter for therapeutic drug level monitoring | CPT/HCPCS: 85610; 99212 ==

== ENCOUNTER 2024-03-19 11:21 | Outpatient (AMB) | payer OTHER, SELFPAY ==
[2024-03-19 11:29] LABS: Prothrombin Time Whole Bld POC 13.5 sec (11.1-13.5); ~PT, ~INR - Anti Coag Clinic 1.1 (0.9-1.1)
--- NOTE | 2024-03-19 11:47 | MHC.OFFVISCO ---
Intake Intake Visit Reasons: Anticoagulation Allergies Seasonal Allergies Allergy (Mild, Verified 03/19/24 11:24) Itchy Eyes Medication List - Last Reconciled 03/19/24 by Adina Acevedo RN amlodipine 10 mg PO DAILY 90 days atenolol 100 mg PO DAILY 90 days diphenhydramine HCl (Benadryl Allergy) 25 mg PO BEDTIME PRN enoxaparin (Lovenox) 80 mg See Protocol subcut Q12H omeprazole 20 mg PO DAILY 90 days spironolactone 50 mg PO DAILY 90 days warfarin See Protocol 7.5mg x 5, 10mg x 2 Nursing Note INR 1.1?out of therapeutic range of 2-3 Pt S/P a 5 day hold of warfarin for extraction of 9 teeth on 03/12/24. Restarted warfarin on 03/13/24 as per [facility] instruction. Pt also stated he started smoking again to increase the INR. Informed pt smoking cigarettes can lower the INR but also will affect healing. Medications and supplements reviewed: continues on amoxicillan which can have a delayed effect to raise the INR Patient status: feels well, no bleeding, oral swelling or pain per pt Supplements: Started taking the supplement Boost after the extraction twice a day and this can lower the INR but decreased eating can raise the INR. Diet: pt stated he is going to try to eat chopped food today. Has been having yogurt soup and boost until now. Denies any signs and symptoms of bleeding or clotting or unusual bruising Bleeding, bruising, clotting discussed Nutritional guidance given: to avoid greens and try to have foods from the list that raises the INR. If he is able to tolerate chopped foods, then to stop the boost or decrease to once a day. Dose: 10mg today and tomorrow and 7.5mg the next day then pt to return to [facility] for INR re-check F/U INR Date : Mon03/22/24?? Patient verbalizing understanding of instructions given. 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
== END 2024-03-19 12:19 | disposition home or self-care (01) ==
LOC: HO.ACS 11:21
PROVIDERS: PCP Internal Medicine; Visit Provider Internal Medicine
DX: Z79.01 Long term (current) use of anticoagulants (principal)

== ENCOUNTER → 2024-03-19 11:21 | Outpatient (BNVA) | payer OTHER, SELFPAY | PROVIDERS: PCP Internal Medicine; Visit Provider Internal Medicine | DX: D73.5 Infarction of spleen (principal); Z79.01 Long term (current) use of anticoagulants; Z51.81 Encounter for therapeutic drug level monitoring | CPT/HCPCS: 85610; 99212 ==

== ENCOUNTER 2024-03-22 10:28 | Outpatient (AMB) | payer OTHER, SELFPAY ==
[2024-03-22 10:35] LABS: Prothrombin Time Whole Bld POC 15.5 sec (11.1-13.5); ~PT, ~INR - Anti Coag Clinic 1.3 (0.9-1.1)
--- NOTE | 2024-03-22 10:52 | MHC.OFFVISCO ---
Intake Intake Visit Reasons: Anticoagulation Allergies Seasonal Allergies Allergy (Mild, Verified 03/22/24 10:30) Itchy Eyes Medication List - Last Reconciled 03/22/24 by Adina Acevedo, RN amlodipine 10 mg PO DAILY 90 days atenolol 100 mg PO DAILY 90 days diphenhydramine HCl (Benadryl Allergy) 25 mg PO BEDTIME PRN enoxaparin (Lovenox) 80 mg See Protocol subcut Q12H omeprazole 20 mg PO DAILY 90 days spironolactone 50 mg PO DAILY 90 days warfarin See Protocol 7.5mg x 5, 10mg x 2 Nursing Note INR 1.3?out of therapeutic range of 2-3 S/P extraction of 9 teeth and is waiting to heal to then have dentures made as he has no teeth remaining. Medications and supplements reviewed Patient status: pt saw his dentist since last visit (03/19) and is healing well, He is still smoking after re-starting the habit last week because he thought it would raise the INR, when in fact smoking lowers the INR. Medications or supplements: Is still taking Boost nutritional supplement which lowers the INR but states he is able to chop foods and eat so will now stop the Boost. Diet: tolerating chopped foods, appetite is good Denies any signs and symptoms of bleeding or clotting or unusual bruising Nutritional guidance given: to avoid greens until INR therapeutic. Food list reviewed and given to pt. Pt to concentrate on foods the raise the INR Pt will also try to stop smoking. Dose: 15mg today, 7.5mg tomorrow and 10mg the next day. His usual dose is 7.5mg daily. Then pt returns for re-testing F/U INR Date : 03/25/24?? Patient verbalizing understanding of instructions given. 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
== END 2024-03-22 11:29 | disposition home or self-care (01) ==
LOC: HO.ACS 10:28
PROVIDERS: PCP Internal Medicine; Visit Provider Internal Medicine
DX: Z79.01 Long term (current) use of anticoagulants (principal)

== ENCOUNTER → 2024-03-22 10:28 | Outpatient (BNVA) | payer OTHER, SELFPAY | PROVIDERS: PCP Internal Medicine; Visit Provider Internal Medicine | DX: D73.5 Infarction of spleen (principal); Z79.01 Long term (current) use of anticoagulants; Z51.81 Encounter for therapeutic drug level monitoring | CPT/HCPCS: 85610; 99212 ==

== ENCOUNTER 2024-03-25 09:03 | Outpatient (AMB) | payer OTHER, SELFPAY ==
--- NOTE | 2024-03-25 09:15 | MHC.OFFVISCO ---
Intake Intake Visit Reasons: Anticoagulation Allergies Seasonal Allergies Allergy (Mild, Verified 03/25/24 09:03) Itchy Eyes Medication List - Last Reconciled 03/25/24 by Adina Acevedo, RN amlodipine 10 mg PO DAILY 90 days atenolol 100 mg PO DAILY 90 days diphenhydramine HCl (Benadryl Allergy) 25 mg PO BEDTIME PRN enoxaparin (Lovenox) 80 mg See Protocol subcut Q12H omeprazole 20 mg PO DAILY 90 days spironolactone 50 mg PO DAILY 90 days warfarin See Protocol 7.5mg x 5, 10mg x 2 Nursing Note INR 1.3?out of therapeutic range of 2-3 Medications and supplements reviewed Patient status: feels well S/P extraction of 9 teeth on 03/12/24. Have not been able to reach therapeutic INR range due to pt not eating much, taking Boost nutritional supplement and pt started smoking again Medications or supplements: no med changes, continues on lovenox Diet: pt stated he is able to eat chopped foods and has stopped taking Boost Denies any signs and symptoms of bleeding or clotting or unusual bruising Bleeding, bruising, clotting discussed Nutritional guidance given: to avoid greens and increase his intake of foods from the list that raises the INR Dose: 15mg, 15mg then 10mg the next 3 days and then return to [facility] F/U INR Date : 3 days, 04/04/24 Pt also instructed to quit smoking. He states he has a nicotine patch but is having difficulty stopping the habit.?? Patient verbalizing understanding of instructions given. Anti-Coag Initial Assessment Social Hx Patient Tobacco Use Status: Current everyday Tobacco user Tobacco use type: Cigarette Smoking packs per day: 0.5 alcohol intake: former Alcohol intake frequency: does not drink Coding Level of Care Code Est Patient Level 1 Diagnoses Current use of anticoagulant therapy Z79.01 Assessment & Plan Assessment & Plan (1) Current use of anticoagulant therapy: Code(s): Z79.01 - [facility] (current) use of anticoagulants Category: Medical
[2024-03-25 09:18] LABS: ~PT, ~INR - Anti Coag Clinic 1.4 (0.9-1.1)
== END 2024-03-25 09:22 | disposition home or self-care (01) ==
LOC: HO.ACS 09:03
PROVIDERS: PCP Internal Medicine; Visit Provider Internal Medicine
DX: Z79.01 Long term (current) use of anticoagulants (principal)

== ENCOUNTER → 2024-03-25 09:03 | Outpatient (BNVA) | payer OTHER, SELFPAY | PROVIDERS: PCP Internal Medicine; Visit Provider Internal Medicine | DX: D73.5 Infarction of spleen (principal); Z79.01 Long term (current) use of anticoagulants; Z51.81 Encounter for therapeutic drug level monitoring | CPT/HCPCS: 85610; 99211 ==

== ENCOUNTER 2024-03-28 09:51 | Outpatient (AMB) | payer OTHER, SELFPAY ==
[2024-03-28 10:14] LABS: Prothrombin Time Whole Bld POC 25.9 sec (11.1-13.5); ~PT, ~INR - Anti Coag Clinic 2.2 (0.9-1.1)
--- NOTE | 2024-03-28 10:25 | MHC.OFFVISCO ---
Intake Intake Visit Reasons: Anticoagulation Allergies Seasonal Allergies Allergy (Mild, Verified 03/28/24 10:08) Itchy Eyes Medication List - Last Reconciled 03/28/24 by Lissette Coker RN amlodipine 10 mg PO DAILY 90 days amoxicillin 500 mg PO TID atenolol 100 mg PO DAILY 90 days diphenhydramine HCl (Benadryl Allergy) 25 mg PO BEDTIME PRN enoxaparin (Lovenox) 80 mg See Protocol subcut Q12H omeprazole 20 mg PO DAILY 90 days spironolactone 50 mg PO DAILY 90 days warfarin See Protocol 7.5mg x 5, 10mg x 2 Nursing Note INR: 2.2 in therapeutic range Medications and supplements reviewed- COMPLETED ANTBX LAST WEEK, TRYING TO STOP SMOKING TRYING TO EAT BETTER NOW THAT GUMS ARE HEALING, Denies any signs and symptoms of bleeding or bruising or clotting. Bleeding, bruising, clotting discussed Nutritional guidance given - RESUME GREENS NEXT WEEK Dose: RESUME PREVIOUS DOSE 5MG X 1 DAY/ 7.5MG X 6 DAYS F/U INR: 1 WEEK - DUE TO RECENT EXTRACTIONS, ANTBX , DECREASE IN SMOKING AND DIETARY CHANGES Patient verbalizes understanding of instructions given Anti-Coag Initial Assessment Social Hx Patient Tobacco Use Status: Current everyday Tobacco user Tobacco use type: Cigarette Smoking packs per day: 0.5 alcohol intake: former Alcohol intake frequency: does not drink Coding Level of Care Code Est Patient Level 1 Diagnoses Current use of anticoagulant therapy Z79.01 Assessment & Plan Assessment & Plan (1) Current use of anticoagulant therapy: Code(s): 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 Take Lovenox for 5 days. Stop 24 hours prior to the procedure. Resume 24 hours postoperatively. Start both warfarin and Lovenox. [facility]. Discontinued Reason: Patient Completed Course 80 mg See Protocol subcut Q12H 30 mL 0RF
== END 2024-03-28 10:29 | disposition home or self-care (01) ==
LOC: HO.ACS 09:51
PROVIDERS: PCP Internal Medicine; Visit Provider Internal Medicine
DX: Z79.01 Long term (current) use of anticoagulants (principal)

== ENCOUNTER → 2024-03-28 09:51 | Outpatient (BNVA) | payer OTHER, SELFPAY | PROVIDERS: PCP Internal Medicine; Visit Provider Internal Medicine | DX: D73.5 Infarction of spleen (principal); Z79.01 Long term (current) use of anticoagulants; Z51.81 Encounter for therapeutic drug level monitoring | CPT/HCPCS: 85610; 99211 ==

== ENCOUNTER 2024-04-05 09:01 | Outpatient (AMB) | payer OTHER, SELFPAY ==
[2024-04-05 09:19] LABS: Prothrombin Time Whole Bld POC 17.5 sec (11.1-13.5); ~PT, ~INR - Anti Coag Clinic 1.5 (0.9-1.1)
--- NOTE | 2024-04-05 09:41 | MHC.OFFVISCO ---
Intake Intake Visit Reasons: Anticoagulation Allergies Seasonal Allergies Allergy (Mild, Verified 04/05/24 09:06) Itchy Eyes Medication List - Last Reconciled 04/05/24 by Adina Acevedo RN amlodipine 10 mg PO DAILY 90 days atenolol 100 mg PO DAILY 90 days diphenhydramine HCl (Benadryl Allergy) 25 mg PO BEDTIME PRN omeprazole 20 mg PO DAILY 90 days spironolactone 50 mg PO DAILY 90 days warfarin See Protocol 7.5mg x 5, 10mg x 2 Nursing Note INR 1.5?out of therapeutic range of 2-3 Medications and supplements reviewed Patient status: feels well Medications or supplements: no changes Diet: appetite fair but able to eat. Has 2 meals a day. Going to add cranberry juice to his diet. Denies any signs and symptoms of bleeding or clotting or unusual bruising Bleeding, bruising, clotting discussed Nutritional guidance given: to avoid greens Dose: 15mg today, 10mg the next 2 days then 7.5mg on the 4th day then pt will come back for re-testing. Pt will also start taking lovenox again 80mg bid. F/U INR Date : 04/09/24?? Patient verbalizing understanding of instructions given. Jailyn Reid and Agustin notified via composed note and Dr Reid's office called. Spoke to Laura and left with dosing plan and next re-test day. 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
== END 2024-04-05 09:51 | disposition home or self-care (01) ==
LOC: HO.ACS 09:01
PROVIDERS: PCP Internal Medicine; Visit Provider Internal Medicine
DX: Z79.01 Long term (current) use of anticoagulants (principal)

== ENCOUNTER → 2024-04-05 09:01 | Outpatient (BNVA) | payer OTHER, SELFPAY | PROVIDERS: PCP Internal Medicine; Visit Provider Internal Medicine | DX: D73.5 Infarction of spleen (principal); Z79.01 Long term (current) use of anticoagulants; Z51.81 Encounter for therapeutic drug level monitoring | CPT/HCPCS: 85610; 99211 ==

== ENCOUNTER 2024-04-09 10:54 | Outpatient (AMB) | payer OTHER, SELFPAY ==
--- NOTE | 2024-04-09 11:05 | MHC.OFFVISCO ---
Intake Intake Visit Reasons: Anticoagulation Allergies Seasonal Allergies Allergy (Mild, Verified 04/09/24 11:01) Itchy Eyes Medication List - Last Reconciled 04/09/24 by Bia Briggs RN amlodipine 10 mg PO DAILY 90 days atenolol 100 mg PO DAILY 90 days diphenhydramine HCl (Benadryl Allergy) 25 mg PO BEDTIME PRN enoxaparin (Lovenox) 80 mg (0.8 mL) subcut Q12H omeprazole 20 mg PO DAILY 90 days spironolactone 50 mg PO DAILY 90 days warfarin See Protocol 7.5mg x 5, 10mg x 2 Nursing Note INR 1.8-?? out of therapeutic range Medications and supplements reviewed Patient status: pt s/p dental extractions, prev low inr Medications or supplements: on lovenox- pt states pharmacy gave him 2 injections only on monday- going back to pharmacy today cont lovenox untill inr therapeutic Diet: soft foods Denies any signs and symptoms of bleeding or clotting or unusual bruising Bleeding, bruising, clotting discussed Nutritional guidance given: no greens for 3 days Dose: 10mg today and tomm F/U INR Date : 04/11/24?? 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
[2024-04-09 11:06] LABS: ~PT, ~INR - Anti Coag Clinic 1.8 (0.9-1.1)
== END 2024-04-09 11:20 | disposition home or self-care (01) ==
LOC: HO.ACS 10:54
PROVIDERS: PCP Internal Medicine; Visit Provider Internal Medicine
DX: Z79.01 Long term (current) use of anticoagulants (principal)

== ENCOUNTER → 2024-04-09 10:54 | Outpatient (BNVA) | payer OTHER, SELFPAY | PROVIDERS: PCP Internal Medicine; Visit Provider Internal Medicine | DX: D73.5 Infarction of spleen (principal); Z79.01 Long term (current) use of anticoagulants; Z51.81 Encounter for therapeutic drug level monitoring | CPT/HCPCS: 85610; 99211 ==

== ENCOUNTER 2024-04-11 11:54 | Outpatient (AMB) | payer OTHER, SELFPAY ==
[2024-04-11 12:49] LABS: Prothrombin Time Whole Bld POC 19.7 sec (11.1-13.5); ~PT, ~INR - Anti Coag Clinic 1.6 (0.9-1.1)
--- NOTE | 2024-04-11 13:16 | MHC.OFFVISCO ---
Intake Intake Visit Reasons: Anticoagulation Allergies Seasonal Allergies Allergy (Mild, Verified 04/11/24 13:02) Itchy Eyes Medication List - Last Reconciled 04/11/24 by Lissette Coker RN amlodipine 10 mg PO DAILY 90 days atenolol 100 mg PO DAILY 90 days diphenhydramine HCl (Benadryl Allergy) 25 mg PO BEDTIME PRN enoxaparin (Lovenox) 80 mg See Protocol subcut Q12H omeprazole 20 mg PO DAILY 90 days spironolactone 50 mg PO DAILY 90 days warfarin See Protocol 7.5mg x 5, 10mg x 2 Nursing Note INR 1.6 out of therapeutic range Medications and supplements reviewed Patient status: recovering from 9 dental extractions Pt came late to appt due to other unforeseen circumstances - INR done then he went to lab for routine blood work- no phlebotomy needed Medications or supplements: no change Diet: has not been able to eat usual foods due to multiple extractions Denies any signs and symptoms of bleeding or clotting or unusual bruising Bleeding, bruising, clotting discussed Nutritional guidance given: avoid all greens - have smoothies or juices that help raise the INR Dose: increase to 10mg daily and cont lovenox thur fri mon sun recheck INR monday F/U INR Date: 04/15/2024?? Patient verbalizing understanding of instructions given. Anti-Coag Initial Assessment Social Hx Patient Tobacco Use Status: Current everyday Tobacco user Tobacco use type: Cigarette Smoking packs per day: 0.5 alcohol intake: former Alcohol intake frequency: does not drink Coding Level of Care Code Est Patient Level 1 Diagnoses Current use of anticoagulant therapy Z79.01 Results AMB INR Fingerstick AMB INR Fingerstick 1.6 Last Edit by Lissette Coker RN on 04/11/24 12:02 manual entry Assessment & Plan Assessment & Plan (1) Current use of anticoagulant therapy: Code(s): Z79.01 - [facility] (current) use of anticoagulants Category: Medical
== END 2024-04-11 13:20 | disposition home or self-care (01) ==
LOC: HO.ACS 11:54
PROVIDERS: PCP Internal Medicine; Visit Provider Internal Medicine
DX: Z79.01 Long term (current) use of anticoagulants (principal)

== ENCOUNTER 2024-04-11 12:04 | Outpatient (REF) | payer OTHER, SELFPAY | END 2024-04-11 12:05 | disposition home or self-care (01) | LOC: HO.BBR 12:04 | PROVIDERS: PCP Internal Medicine; Visit Provider Internal Medicine Medical Oncology | DX: D75.1 Secondary polycythemia (principal) | CPT/HCPCS: 85018; 85610; 99195; 99211 ==

== ENCOUNTER 2024-04-15 08:54 | Outpatient (AMB) | payer OTHER, SELFPAY ==
[2024-04-15 09:06] LABS: Prothrombin Time Whole Bld POC 25.3 sec (11.1-13.5); ~PT, ~INR - Anti Coag Clinic 2.1 (0.9-1.1)
--- NOTE | 2024-04-15 09:17 | MHC.OFFVISCO ---
Intake Intake Visit Reasons: Anticoagulation Allergies Seasonal Allergies Allergy (Mild, Verified 04/15/24 09:00) Itchy Eyes Medication List - Last Reconciled 04/15/24 by Lissette Coker RN amlodipine 10 mg PO DAILY 90 days atenolol 100 mg PO DAILY 90 days diphenhydramine HCl (Benadryl Allergy) 25 mg PO BEDTIME PRN enoxaparin (Lovenox) 80 mg See Protocol subcut Q12H omeprazole 20 mg PO DAILY 90 days spironolactone 50 mg PO DAILY 90 days warfarin See Protocol 7.5mg x 5, 10mg x 2 Nursing Note INR: 2.1 in therapeutic range Medications and supplements reviewed- he will cont lovenox today only bid then stop Still eating soft foods - states he is so hungry - enc pureed or soft meats and a start and vegetables Denies any signs and symptoms of bleeding or bruising or clotting. Bleeding, bruising, clotting discussed Nutritional guidance given - resume weekly greens at the end of the week. Dose: keep 10mg daily for now - and lovneox today only then stop pt enc to call [facility] with any unusual bleeding or bruising to be seen this week F/U INR: 1 week per pt request Patient verbalizes understanding of instructions given Anti-Coag Initial Assessment Social Hx Patient Tobacco Use Status: Current everyday Tobacco user Tobacco use type: Cigarette Smoking packs per day: 0.5 alcohol intake: former Alcohol intake frequency: does not drink Coding Level of Care Code Est Patient Level 1 Diagnoses Current use of anticoagulant therapy Z79.01 Results AMB INR Fingerstick AMB INR Fingerstick 2.1 Last Edit by Lissette Coker RN on 04/15/24 09:06 manual entry Assessment & Plan Assessment & Plan (1) Current use of anticoagulant therapy: Code(s): Z79.01 - residential (current) use of anticoagulants Category: Medical Medications: Changed From warfarin See Protocol 7.5mg x 5, 10mg x 2 90 tabs 3RF To warfarin See Protocol 5 mg TABS 10MG DAILY 90 tabs 3RF
== END 2024-04-15 09:22 | disposition home or self-care (01) ==
LOC: HO.ACS 08:54
PROVIDERS: PCP Internal Medicine; Visit Provider Internal Medicine
DX: Z79.01 Long term (current) use of anticoagulants (principal)

== ENCOUNTER → 2024-04-15 08:54 | Outpatient (BNVA) | payer OTHER, SELFPAY | PROVIDERS: PCP Internal Medicine; Visit Provider Internal Medicine | DX: D73.5 Infarction of spleen (principal); Z79.01 Long term (current) use of anticoagulants; Z51.81 Encounter for therapeutic drug level monitoring | CPT/HCPCS: 85610; 99211 ==

== ENCOUNTER 2024-04-22 09:04 | Outpatient (AMB) | payer OTHER, SELFPAY ==
--- NOTE | 2024-04-22 09:12 | MHC.OFFVISCO ---
Intake Intake Visit Reasons: Anticoagulation Allergies Seasonal Allergies Allergy (Mild, Verified 04/22/24 09:07) Itchy Eyes Medication List - Last Reconciled 04/22/24 by Bia Briggs RN amlodipine 10 mg PO DAILY 90 days atenolol 100 mg PO DAILY 90 days diphenhydramine HCl (Benadryl Allergy) 25 mg PO BEDTIME PRN omeprazole 20 mg PO DAILY 90 days spironolactone 50 mg PO DAILY 90 days warfarin See Protocol 5 mg TABS 10MG DAILY Nursing Note INR 3.3-?? out of therapeutic range of 2-3 Medications and supplements reviewed Patient status: pt states did not have u/s abd- to reschedule Medications or supplements: no changes Diet: soft foods Denies any signs and symptoms of bleeding or clotting or unusual bruising Bleeding, bruising, clotting discussed Nutritional guidance given: eat a green today Dose: 7.5mg today then 10mg x 6, 7.5mg x 1 F/U INR Date : 1 week? Patient verbalizing understanding of instructions given. Anti-Coag Initial Assessment Social Hx Patient Tobacco Use Status: Current everyday Tobacco user Tobacco use type: Cigarette Smoking packs per day: 0.5 alcohol intake: former Alcohol intake frequency: does not drink Coding Level of Care Code Est Patient Level 1 Diagnoses Current use of anticoagulant therapy Z79.01 Assessment & Plan Assessment & Plan (1) Current use of anticoagulant therapy: Code(s): Z79.01 - [facility] (current) use of anticoagulants Category: Medical
[2024-04-22 09:13] LABS: ~PT, ~INR - Anti Coag Clinic 3.3 (0.9-1.1)
== END 2024-04-22 09:18 | disposition home or self-care (01) ==
LOC: HO.ACS 09:04
PROVIDERS: PCP Internal Medicine; Visit Provider Internal Medicine
DX: Z79.01 Long term (current) use of anticoagulants (principal)

== ENCOUNTER → 2024-04-22 09:04 | Outpatient (BNVA) | payer OTHER, SELFPAY | PROVIDERS: PCP Internal Medicine; Visit Provider Internal Medicine | DX: D73.5 Infarction of spleen (principal); Z79.01 Long term (current) use of anticoagulants; Z51.81 Encounter for therapeutic drug level monitoring | CPT/HCPCS: 85610; 99211 ==

== ENCOUNTER 2024-04-29 11:04 | Outpatient (AMB) | payer OTHER, SELFPAY ==
--- NOTE | 2024-04-29 11:09 | MHC.OFFVISCO ---
Intake Intake Visit Reasons: Anticoagulation Allergies Seasonal Allergies Allergy (Mild, Verified 04/29/24 11:05) Itchy Eyes Medication List - Last Reconciled 04/29/24 by Bia Briggs RN amlodipine 10 mg PO DAILY 90 days atenolol 100 mg PO DAILY 90 days diphenhydramine HCl (Benadryl Allergy) 25 mg PO BEDTIME PRN omeprazole 20 mg PO DAILY 90 days spironolactone 50 mg PO DAILY 90 days warfarin See Protocol 5 mg TABS 10MG DAILY Nursing Note INR: 2.0- in therapeutic range of 2-3 Medications and supplements reviewed- no changes No changes in health, diet, medications, or supplements, Denies any signs and symptoms of bleeding or bruising or clotting. Bleeding, bruising, clotting discussed Nutritional guidance given - no greens for 2 days, eat reds today Dose: 10mg x 6, 7.5mg x 1 F/U INR: 1 week Patient verbalizes understanding of instructions given Anti-Coag Initial Assessment Social Hx Patient Tobacco Use Status: Current everyday Tobacco user Tobacco use type: Cigarette Smoking packs per day: 0.5 alcohol intake: former Alcohol intake frequency: does not drink Coding Level of Care Code Est Patient Level 1 Diagnoses Current use of anticoagulant therapy Z79.01 Assessment & Plan Assessment & Plan (1) Current use of anticoagulant therapy: Code(s): Z79.01 - senior living (current) use of anticoagulants Category: Medical
[2024-04-29 11:10] LABS: Prothrombin Time Whole Bld POC 24.2 sec (11.1-13.5)
== END 2024-04-29 11:15 | disposition home or self-care (01) ==
LOC: HO.ACS 11:04
PROVIDERS: PCP Internal Medicine; Visit Provider Internal Medicine
DX: Z79.01 Long term (current) use of anticoagulants (principal)

== ENCOUNTER → 2024-04-29 11:04 | Outpatient (BNVA) | payer OTHER, SELFPAY | PROVIDERS: PCP Internal Medicine; Visit Provider Internal Medicine | DX: D73.5 Infarction of spleen (principal); Z79.01 Long term (current) use of anticoagulants; Z51.81 Encounter for therapeutic drug level monitoring | CPT/HCPCS: 85610; 99211 ==

== ENCOUNTER 2024-05-03 12:07 | Outpatient (AMB) | payer OTHER, SELFPAY ==
[2024-05-03 12:15] VITALS: BP 132/86; PULSE 93; O2SAT 97; BMI 27.8
--- NOTE | 2024-05-03 12:15 | A.OFFPC_ITS ---
Vital Signs 05/03/24 12:15 Height 5 ft 9 in Weight 188 lb 8 oz BMI 27.8 BP 132/86 Blood Pressure Location Lt brachial Position Sitting Pulse 93 Pulse Source Pulse Oximeter Pulse Oximetry (%) 97 Oxygen Delivery Method Room Air Intake Visit Reasons: Follow up, medication Allergies Seasonal Allergies Allergy (Mild, Verified 05/03/24 12:19) Itchy Eyes Medication List - Last Reconciled 05/03/24 by Dimas Reid MD amlodipine 10 mg PO DAILY 90 days atenolol 100 mg PO DAILY 90 days diphenhydramine HCl (Benadryl Allergy) 25 mg PO BEDTIME PRN omeprazole 20 mg PO DAILY 90 days spironolactone 50 mg PO DAILY 90 days warfarin See Protocol 5 mg TABS 10MG DAILY Tobacco use date assessed: 05/03/24 Dental Screening Dental Screen Date: 05/03/24 Did you have a dental visit in the last 12 months?: Yes Did you have a dental problem in the last 6 months where you did not have access to dental care?: No Was dental information given to patient?: Patient has dentist HPI Follow up, medication 2 HPI Details Patient is a 58-year-old male came in today for his regular follow-up appointment Currently waiting for occupational teeth, has dental appointment in May Continue to smoke Labs done February reviewed new set of lab order placed to be done before next visit Hypertension: Patient is taking amlodipine 10 mg, atenolol 100 mg and spironolactone 50 mg. His blood pressure is stable Patient have a diagnosis of bipolar disorder but taking no medications, he is stable GERD is stable with omeprazole 20 mg. Polycythemia management through hematology. He will return in 4 months for follow-up appointment to [facility] Medical History Anxiety, generalized Tobacco abuse Dyspepsia Splenic vein thrombosis Hepatitis C antibody positive in blood Hypertension, essential Bipolar 1 disorder Surgical History History of surgery History of tonsillectomy Family History Father HTN (hypertension) Mother HTN (hypertension) Brother HTN (hypertension) Maternal Grandfather No problems noted. Maternal Grandmother No problems noted. Paternal Grandfather No problems noted. Paternal Grandmother No problems noted. Brother No problems noted. Sister No problems noted. Daughter No problems noted. Other Substance use disorder Social History Household Members: Family Housing: Condominium Are you a primary physician primary care sports medicine to a significant other at home: No Do you presently have visiting nurse or other home services: No Alcohol intake: former Patient Tobacco Use Status: Current everyday Tobacco user Tobacco use type: Cigarette Cigarette Packs Per Day: 0.5 Years Smoked: 17 e-Cigarette/Vaping Use: Never Used Substance Use Type: Marijuana service: No Current occupational status: disabled Cognitive needs: No Hearing needs: No Vision needs: Yes Questionnaire Thrive Questionnaire Date Thrive assessed: 05/03/24 I am a: Patient What is your living situation today?: I have a steady place to live Within the past 12 months, did the food you bought not last and you didn't have the money to get more?: Never true Within the past 12 months, did you worry whether your food would run out before you got money to buy more?: Never true Do you have trouble paying for medicines?: No Do you have trouble getting transportation to medical appointments?: No Do you have trouble paying your heating and electricity bill?: No Do you have trouble taking care of your child, family member or friend?: No Do you have trouble with day-to-day activities such as bathing, preparing meals, shopping, managing finances, etc.?: No Are you currently unemployed and looking for a job?: No Are you interested in more education?: No Please select the resources that you would like help with: None Currently or been in a relationship where the following occur: No concerns reported THRIVE Score: 0 AUDIT C Alcohol Use Questionnaire (AUDIT-C) 1. How often do you have a drink containing alcohol?: Never 3. How often do you have six or more drinks on one occasion?: Never Total Score: 0 Score Reviewed/Action Taken: Yes SHRADDHA-7 AMB Questionnaire SHRADDHA-7 Date SHRADDHA - 7 assessed: 11/17/23 Source: Developed by Drs. Vivek Sims, Saadia Harris, French Correia and colleagues, with an educational azeem from [employer] Review of Systems Const Denies chills and Denies fever(s) ENT Denies epistaxis and Denies nasal discharge Card Denies chest pain Resp Denies chest congestion, Denies cough and Denies hemoptysis GI Denies diarrhea and Denies nausea Skin/Breast Denies rash Neuro Reports no additional complaints Psych Reports no additional complaints Endo Reports no additional complaints Physical exam (Primary Care) Vital Signs: Last Vital Signs Pulse 93 05/03/24 12:15 BP 132/86 05/03/24 12:15 Pulse Ox 97 05/03/24 12:15 Oxygen Delivery Method Room Air 05/03/24 12:15 BMI result Body Mass Index 27.8 Tobacco/Smoking Status: Tobacco use Status Tobacco use date assessed 05/03/24 05/03/24 12:21 Patient Tobacco Use Status Current everyday Tobacco 05/03/24 12:21 Tobacco use type Cigarette 05/03/24 12:21 e-Cigarette/Vaping Use Never Used 05/03/24 12:21 Thrive Assessment: Date of Thrive Assessment Date Thrive assessed 05/03/24 05/03/24 12:21 Currently or been in a relationship where the following occur: No concerns reported Const General: cooperative, comfortable and no acute distress Orientation/consciousness: patient oriented x3 HENMT Head: Yes normocephalic Eyes General: appearance normal, both eyes and all related structures Neck Neck: Yes supple Resp Effort & Inspection: normal respiratory effort, no cough and no stridor Cardio Rhythm: regular rhythm Heart sounds: S1 normal heart sound present and S2 normal heart sound present Skin General skin exam: turgor normal Neuro General: patient oriented x3, tone normal and moves all extremities Extrem Right lower extremity: no edema Left lower extremity: no edema Assessment and Plan Assessment & Plan (1) Hypertension, essential: Code(s): I10 - Essential (primary) hypertension (2) Polycythemia: Code(s): D75.1 - Secondary polycythemia (3) Tobacco abuse: Comment: Patient was instructed to stop smoking as soon as possible, and if he need any assistance he is to let me know Code(s): Z72.0 - Tobacco use (4) Bipolar 1 disorder: Code(s): F31.9 - Bipolar disorder, unspecified (5) Current use of anticoagulant therapy: Code(s): Z79.01 - nursing home (current) use of anticoagulants (6) Dyspepsia: Code(s): R10.13 - Epigastric pain Plan Patient is a 58-year-old male came in today for his regular follow-up appointment Currently waiting for occupational teeth, has dental appointment in May Continue to smoke Labs done February reviewed new set of lab order placed to be done before next visit Hypertension: Patient is taking amlodipine 10 mg, atenolol 100 mg and spironolactone 50 mg. His blood pressure is stable Patient have a diagnosis of bipolar disorder but taking no medications, he is stable GERD is stable with omeprazole 20 mg. Polycythemia management through hematology. He will return in 4 months for follow-up appointment to Orders: Orders Comprehensive Met. Panel Today D75.1 - Secondary polycythemia, F31.9 - Bipolar disorder, unspecified, I10 - Essential (primary) hypertension, R10.13 - Epigastric pain, Z72.0 - Tobacco use, Z79.01 - nursing home (current) use of anticoagulants Complete Blood Count Auto Diff Today D75.1 - Secondary polycythemia, F31.9 - Bipolar disorder, unspecified, I10 - Essential (primary) hypertension, R10.13 - Epigastric pain, Z72.0 - Tobacco use, Z79.01 - nursing home (current) use of anticoagulants Coding Level of Care Code Est Pt Level 4 (33938) Complex EM visit Add On G2211 Diagnoses Hypertension, essential I10 Polycythemia D75.1 Tobacco abuse Z72.0 Bipolar 1 disorder F31.9 Current use of anticoagulant therapy Z79.01 Dyspepsia R10.13
== END 2024-05-03 12:28 | disposition home or self-care (01) ==
PROVIDERS: PCP Internal Medicine; Visit Provider Internal Medicine
DX: I10 Essential (primary) hypertension (principal); D75.1 Secondary polycythemia; Z72.0 Tobacco use; F31.9 Bipolar disorder, unspecified; Z79.01 Long term (current) use of anticoagulants; R10.13 Epigastric pain

== ENCOUNTER → 2024-05-03 12:07 | Outpatient (BNVA) | payer OTHER, SELFPAY | PROVIDERS: PCP Internal Medicine; Visit Provider Internal Medicine | DX: I10 Essential (primary) hypertension (principal); D75.1 Secondary polycythemia; F31.9 Bipolar disorder, unspecified; R10.13 Epigastric pain; Z79.01 Long term (current) use of anticoagulants; Z72.0 Tobacco use | CPT/HCPCS: 99212 ==

== ENCOUNTER 2024-05-06 08:50 | Outpatient (AMB) | payer OTHER, SELFPAY ==
--- NOTE | 2024-05-06 09:04 | MHC.OFFVISCO ---
Intake Intake Visit Reasons: Anticoagulation Allergies Seasonal Allergies Allergy (Mild, Verified 05/06/24 08:52) Itchy Eyes Medication List - Last Reconciled 05/06/24 by Adina Acevedo RN amlodipine 10 mg PO DAILY 90 days atenolol 100 mg PO DAILY 90 days diphenhydramine HCl (Benadryl Allergy) 25 mg PO BEDTIME PRN omeprazole 20 mg PO DAILY 90 days spironolactone 50 mg PO DAILY 90 days warfarin See Protocol 5 mg TABS 10MG DAILY Nursing Note INR: 2.4 in therapeutic range of 2-3 Medications and supplements reviewed No changes in health, diet, medications, or supplements, Denies any signs and symptoms of bleeding or bruising or clotting. Bleeding, bruising, clotting discussed Nutritional guidance given Dose: 10mg X6 days and 7.5mg X 1 day F/U INR: 2 weeks Patient verbalizes understanding of instructions given Anti-Coag Initial Assessment Social Hx Patient Tobacco Use Status: Current everyday Tobacco user Tobacco use type: Cigarette Smoking packs per day: 0.5 alcohol intake: former Alcohol intake frequency: does not drink Coding Level of Care Code Est Patient Level 1 Diagnoses Current use of anticoagulant therapy Z79.01 Results AMB INR Fingerstick AMB INR Fingerstick 2.4 Last Edit by Adina Acevedo RN on 05/06/24 08:59 interface delay Assessment & Plan Assessment & Plan (1) Current use of anticoagulant therapy: Code(s): Z79.01 - senior care (current) use of anticoagulants Category: Medical
[2024-05-06 09:06] LABS: Prothrombin Time Whole Bld POC 28.6 sec (11.1-13.5); ~PT, ~INR - Anti Coag Clinic 2.4 (0.9-1.1)
== END 2024-05-06 09:05 | disposition home or self-care (01) ==
LOC: HO.ACS 08:50
PROVIDERS: PCP Internal Medicine; Visit Provider Internal Medicine
DX: Z79.01 Long term (current) use of anticoagulants (principal)

== ENCOUNTER → 2024-05-06 08:50 | Outpatient (BNVA) | payer OTHER, SELFPAY | PROVIDERS: PCP Internal Medicine; Visit Provider Internal Medicine | DX: D73.5 Infarction of spleen (principal); Z79.01 Long term (current) use of anticoagulants; Z51.81 Encounter for therapeutic drug level monitoring | CPT/HCPCS: 85610; 99211 ==

== ENCOUNTER 2024-05-17 09:02 | Outpatient (AMB) | payer OTHER, SELFPAY ==
[2024-05-17 09:12] LABS: Prothrombin Time Whole Bld POC 30.3 sec (11.1-13.5); ~PT, ~INR - Anti Coag Clinic 2.5 (0.9-1.1)
--- NOTE | 2024-05-17 09:18 | MHC.OFFVISCO ---
Intake Intake Visit Reasons: Anticoagulation Allergies Seasonal Allergies Allergy (Mild, Verified 05/17/24 09:08) Itchy Eyes Medication List - Last Reconciled 05/17/24 by Adina Acevedo, RN amlodipine 10 mg PO DAILY 90 days atenolol 100 mg PO DAILY 90 days diphenhydramine HCl (Benadryl Allergy) 25 mg PO BEDTIME PRN omeprazole 20 mg PO DAILY 90 days spironolactone 50 mg PO DAILY 90 days warfarin See Protocol 5 mg TABS 10MG DAILY Nursing Note INR: 2.5 in therapeutic range of 2-3 Medications and supplements reviewed No changes in health, diet, medications, or supplements, Denies any signs and symptoms of bleeding or bruising or clotting. Bleeding, bruising, clotting discussed Nutritional guidance given Dose: continue same dose of 10mg X 6 days and 7.5mg X 1 day F/U INR: 3 weeks Patient verbalizes understanding of instructions given Anti-Coag Initial Assessment Social Hx Patient Tobacco Use Status: Current everyday Tobacco user Tobacco use type: Cigarette Smoking packs per day: 0.5 alcohol intake: former Alcohol intake frequency: does not drink Coding Level of Care Code Est Patient Level 1 Diagnoses Current use of anticoagulant therapy Z79.01 Results AMB INR Fingerstick AMB INR Fingerstick 2.5 Last Edit by Adina Acevedo, RN on 05/17/24 09:12 interface delay Assessment & Plan Assessment & Plan (1) Current use of anticoagulant therapy: Code(s): Z79.01 - [facility] (current) use of anticoagulants Category: Medical
== END 2024-05-17 09:22 | disposition home or self-care (01) ==
LOC: HO.ACS 09:02
PROVIDERS: PCP Internal Medicine; Visit Provider Internal Medicine
DX: Z79.01 Long term (current) use of anticoagulants (principal)

== ENCOUNTER → 2024-05-17 09:02 | Outpatient (BNVA) | payer OTHER, SELFPAY | PROVIDERS: PCP Internal Medicine; Visit Provider Internal Medicine | DX: D73.5 Infarction of spleen (principal); Z79.01 Long term (current) use of anticoagulants; Z51.81 Encounter for therapeutic drug level monitoring | CPT/HCPCS: 85610; 99211 ==

== ENCOUNTER 2024-08-22 13:30 | Outpatient (AMB) | payer OTHER, SELFPAY ==
[2024-08-22 13:49] LABS: Prothrombin Time Whole Bld POC 13.1 sec (11.1-13.5); ~PT, ~INR - Anti Coag Clinic 1.1 (0.9-1.1)
--- NOTE | 2024-08-22 14:03 | MHC.OFFVISCO ---
Intake Intake Visit Reasons: Anticoagulation Allergies Seasonal Allergies Allergy (Mild, Verified 08/22/24 13:41) Itchy Eyes Medication List - Last Reconciled 08/22/24 by Lissette Coker RN amlodipine 10 mg PO DAILY 90 days atenolol 100 mg PO DAILY 90 days diphenhydramine HCl (Benadryl Allergy) 25 mg PO BEDTIME PRN enoxaparin (Lovenox) 80 mg (0.8 mL) subcut Q12H omeprazole 20 mg PO DAILY 90 days spironolactone 50 mg PO DAILY 90 days warfarin See Protocol 5 mg TABS 10MG DAILY Nursing Note Pt had been no show since 06/07/2025-- he stated he had family issues to deal with and was also very ill end of June with possibly covid - stated he had not felt well for over a month. He also had new false teeth- they are still being fitted; he finds it challenging to eat still and not eating usual diet. Has lost weight States he has f/u appt in future with PCP and Dr Velez. He did not have the upper endo or colonoscopy he was scheduled for - he was enc to at least have one because it is a screening tool for cancer. He stated he may in the future. He has lovenox on hand and has taken it in the past for sub therapeutic INRs He was advised the MD may recommend he take it again - he stated he usually only has to take it once daily- although it it is written BID INR 1.1 out of therapeutic range Medications and supplements reviewed Patient status: denies any c/p or sob Medications or supplements: states no changes Diet: ok - difficult with dentures Denies any signs and symptoms of bleeding or clotting or unusual bruising Bleeding, bruising, clotting discussed Nutritional guidance given: avoid greens , eat soft orange and red foods to help raise the INR Dose: when he started the warfarin Monday he only started at 7.5mg instead of 10mg the past 3 days, he will start at 10mg Mon Sat Sun and lovenox per md and f/u INR Monday F/U INR Date: ??08/26/2024 Patient verbalizing understanding of instructions given with read back This msg will be sent to PCP and Hem/Onc Anti-Coag Initial Assessment Social Hx Patient Tobacco Use Status: Current everyday Tobacco user Tobacco use type: Cigarette Smoking packs per day: 0.5 alcohol intake: former Alcohol intake frequency: does not drink Questionnaires HAS-BLED Does the patient had uncontrolled Hypertension?: Yes Does the patient have renal disease?: No Does the patient have liver disease?: No Does the patient have a history of stroke?: No Has the patient had major bleeding or predisposition to bleeding?: No Does the patient have labile INRs?: No Is the patient over 65 years of age?: No Is the patient on medications that gives them a predisposition to bleeding?: Yes Does the patient use alcohol?: Yes HAS-BLED Score: 3 CHADSVASC Age: <65 Gender: Male Does the patient have a history of CHF?: No Does the patient have a history of Hypertension?: Yes Does the patient have a history of Stroke/TIA/Thromboembolism?: Yes Does the patient have a history of Vascular Disease (prior IN, PAD or aortic plaque)?: No Does the patient have a history of Diabetes?: No CHADS VACS Score: 3 Holden Prediction Score Rsk VTE Active Cancer: No Previous VTE, excluding superficial vein thrombosis: Yes Reduced mobility: No 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 ) With-in last month Trauma and/or Surgery: No Elderly 70 year or older: No Heart and/or Respiratory Failure: No Acute Myocardial infarction and/or Ischemic Stroke: No Acute Infection and/or Rheumatologic Disorder: No Obesity (BMI 30 or greater): No Ongoing Hormonal Treatment: No Score: 6 Holden Score less than 4; Low Risk of VTE Holden Score 4 or greater; High Risk of VTE Coding Level of Care Code Est Patient Level 1 Diagnoses Current use of anticoagulant therapy Z79.01 Results AMB INR Fingerstick AMB INR Fingerstick 1.1 Last Edit by Lissette Coker RN on 08/22/24 13:51 just resumed warfarin 08/20/24 Assessment & Plan Assessment & Plan (1) Current use of anticoagulant therapy: Code(s): Z79.01 - [facility] (current) use of anticoagulants Category: Medical
== END 2024-08-22 14:22 | disposition home or self-care (01) ==
LOC: HO.ACS 13:30
PROVIDERS: PCP Internal Medicine; Visit Provider Internal Medicine
DX: Z79.01 Long term (current) use of anticoagulants (principal)

== ENCOUNTER → 2024-08-22 13:30 | Outpatient (BNVA) | payer OTHER, SELFPAY | PROVIDERS: PCP Internal Medicine; Visit Provider Internal Medicine | DX: D73.5 Infarction of spleen (principal); Z79.01 Long term (current) use of anticoagulants; Z51.81 Encounter for therapeutic drug level monitoring | CPT/HCPCS: 85610; 99211 ==

== ENCOUNTER 2024-08-27 09:03 | Outpatient (AMB) | payer OTHER, SELFPAY ==
[2024-08-27 09:12] LABS: Prothrombin Time Whole Bld POC 22.9 sec (11.1-13.5); ~PT, ~INR - Anti Coag Clinic 1.9 (0.9-1.1)
--- NOTE | 2024-08-27 09:18 | MHC.OFFVISCO ---
Intake Intake Visit Reasons: Anticoagulation Allergies Seasonal Allergies Allergy (Mild, Verified 08/27/24 09:05) Itchy Eyes Medication List - Last Reconciled 08/27/24 by Lissette Coker RN amlodipine 10 mg PO DAILY 90 days atenolol 100 mg PO DAILY 90 days diphenhydramine HCl (Benadryl Allergy) 25 mg PO BEDTIME PRN enoxaparin (Lovenox) 80 mg See Protocol subcut Q12H omeprazole 20 mg PO DAILY 90 days spironolactone 50 mg PO DAILY 90 days warfarin See Protocol 5 mg TABS 10MG DAILY Nursing Note INR: 1.9 almost therapeutic range Medications and supplements reviewed- no changes Just resumed usual warfarin dose last week Denies any signs and symptoms of bleeding or bruising or clotting. Bleeding, bruising, clotting discussed Nutritional guidance given - avoid greens 2 more days, reds and orange to help raise the INR Dose: 10mg x 6 days/ 7.5mg wed F/U INR: 10 days 09/06/24 Patient verbalizes understanding of instructions given with accurate read back Anti-Coag Initial Assessment Social Hx Patient Tobacco Use Status: Current everyday Tobacco user Tobacco use type: Cigarette Smoking packs per day: 0.5 alcohol intake: former Alcohol intake frequency: does not drink Coding Level of Care Code Est Patient Level 1 Diagnoses Current use of anticoagulant therapy Z79.01 Assessment & Plan Assessment & Plan (1) Current use of anticoagulant therapy: Code(s): Z79.01 - intermediate frame tender (current) use of anticoagulants Category: Medical
== END 2024-08-27 09:21 | disposition home or self-care (01) ==
LOC: HO.ACS 09:03
PROVIDERS: PCP Internal Medicine; Visit Provider Internal Medicine
DX: Z79.01 Long term (current) use of anticoagulants (principal)

== ENCOUNTER → 2024-08-27 09:03 | Outpatient (BNVA) | payer OTHER, SELFPAY | PROVIDERS: PCP Internal Medicine; Visit Provider Internal Medicine | DX: D73.5 Infarction of spleen (principal); Z79.01 Long term (current) use of anticoagulants; Z51.81 Encounter for therapeutic drug level monitoring | CPT/HCPCS: 85610; 99211 ==

== ENCOUNTER 2024-09-05 11:11 | Outpatient (AMB) | payer OTHER, SELFPAY ==
--- NOTE | 2024-09-05 11:18 | MHC.OFFVISCO ---
Intake Intake Visit Reasons: Anticoagulation Allergies Seasonal Allergies Allergy (Mild, Verified 09/05/24 11:13) Itchy Eyes Medication List - Last Reconciled 09/05/24 by Bia Briggs RN amlodipine 10 mg PO DAILY 90 days atenolol 100 mg PO DAILY 90 days diphenhydramine HCl (Benadryl Allergy) 25 mg PO BEDTIME PRN omeprazole 20 mg PO DAILY 90 days spironolactone 50 mg PO DAILY 90 days warfarin See Protocol 5 mg TABS 10MG DAILY Nursing Note INR 3.1-?? out of therapeutic range of 2-3 Medications and supplements reviewed Patient status: pt ancelmo has been taking 7.5mg warfarin daily since last acs appt Medications or supplements: no changes Diet: appetite is good Denies any signs and symptoms of bleeding or clotting or unusual bruising Bleeding, bruising, clotting discussed Nutritional guidance given: eat a green today Dose: 7.5mg x 7 F/U INR Date : 09/10/24 Patient verbalizing understanding of instructions given. Anti-Coag Initial Assessment Social Hx Patient Tobacco Use Status: Current everyday Tobacco user Tobacco use type: Cigarette Smoking packs per day: 0.5 alcohol intake: former Alcohol intake frequency: does not drink Coding Level of Care Code Est Patient Level 1 Diagnoses Current use of anticoagulant therapy Z79.01 Results AMB INR Fingerstick AMB INR Fingerstick 3.1 Last Edit by Bia Briggs RN on 09/05/24 11:20 interface delay Assessment & Plan Assessment & Plan (1) Current use of anticoagulant therapy: Code(s): Z79.01 - long-term (current) use of anticoagulants Category: Medical
[2024-09-05 11:38] LABS: Prothrombin Time Whole Bld POC 37.7 sec (11.1-13.5); ~PT, ~INR - Anti Coag Clinic 3.1 (0.9-1.1)
--- OUTSIDE RECORDS SUMMARY | 2024-09-05 15:03 | XMS_ITS ---
Author Organization [facility] Address [address] [place] [address] Care Team Providers Care Bench Machine Operator Name Role Phone Franklin CHENEY, [facility] Primary Care Provider Vivek Dockery [phone] ALLERGIES No Known Allergies REASON FOR VISIT Patient presents today for a colon screening MEDICATIONS Medication SIG (Take, Route, Frequency, Duration) Notes Start Date End Date Status amLODIPine Besylate 10 MG TAKE ONE TABLE T BY MOUTH EVERY DAY Oral for 90 Active Omeprazole 20 MG TAKE ONE CAPSULE BY MOUTH EVERY DAY Oral for 90 Active Jantoven 5 MG TAKE 1 AND 1/2 TABLE TS 7.5MG) DAILY 5 DAYS A WEEK AND TAKE 2 TABLETS 10MG) DAILY 2 DAYS A WEEK DIRECTED Oral for 54 Active Lisinopril Active SOCIAL HISTORY Tobacco Use: Social History Observation Description Date Details (start date - stop date) Current Smoker NA - NA Sex Assigned At : Social History Observation Description Sex Assigned At Unknown Tobacco Use/Smoking Question Answer Notes Patient is a current smoker How often do you smoke cigarettes? every day How many cigarettes a day do you smoke? 11-20 Alcohol Screen Question Answer Notes Did you have a drink containing alcohol in the p ast year? No Points 0 Interpretation Negative PROBLEMS Problem Type ICD Code Onset Dates Problem Status W/U Status Risk SNOMED Code Notes Problem Colon cancer screening (Z12.11) Active confirmed Colon cancer screening (399165668) Problem Chronic GERD (K21.9) Active confirmed Gastroesophagea l reflux disease (disorder) (380150354) Problem History of hepatitis C (Z86.19) Active confirmed History of hepatitis C (28556742139201) VITAL SIGNS BMI 27.32 kg/m2 04/09/2024 Blood pressure systolic 00 mm Hg 04/09/20 24 Blood pressure diastolic 00 mm Hg 024 Height 5 ft 9 in in 04/09/2024 Weight 185 lbs 04/09/2024 Encounters Encounter Location Date Provider Diagnosis [facility] [address] [place] [address] 04/09/2024 Vivek Allen Colon cancer screening Z12.11 ; Chronic GERD K21.9 and History of hepatitis C Z86.19 ASSESSMENTS Encounter Date Diagnosis Assessment Notes Treatment Notes Treatment Clinical Notes 04/09/2024 Colon cancer screening (ICD-10 - Z12.11) Stop the Jantoven(Coumadin) for 5 days before the procedures and get a Lovenox prescription from Dr. Velez 04/09/2024 Chronic GERD (ICD-10 - K21.9) 04/09/2024 History of hepatitis C (ICD-10 - Z86.19) PLAN OF TREATMENT Treatment Notes Assessment Notes Colon cancer screening Stop the Jantoven (Coumadin) for 5 days before the procedures and get a Lovenox prescription from Dr. Velez Pending Test Test Name Order Date LIVER PROFILE 04/09/2024 ALPHA-FETOPROTEIN,TUMOR MARKER 4 HEPATITIS C VIRAL LOAD 04/09/2024 HCV LIVER FIBROSIS, FIBRO TEST 4 US abdomen comp w elastography 4 Future Test Test Name Order Date UPPER GI ENDOSCOPY 04/09/2024 COLONOSCOPY 04/09/2024 Next Appt Details Follow Up: prn, Reason: Progress Notes * Examination Category Sub-Category Detail Notes General Examination GENERAL APPEARANCE: pleasant , well nourished, well developed, in no acute distress HEAD: EYES: sclera non-icteric EARS: NOSE: THROAT: NECK/THYROID: no cervical lymphade nopathy, neck supple HEART: S1, S2 normal CHEST: LUNGS: clear to auscultatio n bilaterally ABDOMEN: normal bowel sounds, no guarding or rigidity, no guarding or rigidity, no masses palpable, soft, nontender, nondistended NEUROLOGIC: alert and oriented SKIN: nonjaundiced, no spi jocelin angiomata EXTREMITIES: no edema PERIPHERAL PULSES: BACK: BREASTS: MUSCULOSKELETAL: MALE GENITOURINARY: LYMPH NODES: RECTAL EXAM: FEMALE GENITOURINARY: ORAL CAVITY: mucosa moist
--- OUTSIDE RECORDS SUMMARY | 2024-09-05 15:03 | XMS_ITS ---
Author Organization [facility] Address [address] [place] [address] Care Team Providers Care Group Controller Name Role Phone Franklin CHENEY, [facility] Primary Care Provider Vivek Dockery [phone] REASON FOR VISIT screening,gerd Encounters Encounter Location Date Provider Diagnosis [facility] [address] [place], [place] [id number] 07/15/2024 Vivek Allen PLAN OF TREATMENT No Information
--- OUTSIDE RECORDS SUMMARY | 2024-09-05 15:03 | XMS_ITS | Clinical Summary ---
Author Organization [facility] Address [address] [facility] [address] [place] [id number] Care Team Providers Care Cut Off Sawyer Name Role Phone Dimas Reid MD Primary Care Provider [phone] Family History Medical History Relation Comments Hypertension Father Hypertension Mother Relation Status Comments Father Alive Mother Alive Social History Tobacco Use Types Packs/Day Years Used Date Smoking Tobacco: Every Day Cigarettes Alcohol Use Standard Drinks/Week Comments No 0 (1 standard drink = 0.6 oz pur e alcohol) Sex and Gender Information Value Date Recorded Sex Assigned at Not on file Legal Sex Male 5:11 PM EST Gender Identity Not on file Sexual Orientation Not on file Plan of Treatment Health Maintenance Due Date Last Done Comments Pneumococcal Vaccine: Pediat rics (0 to 5 Years) and At-Risk Patients (6 to 64 Years) (1 of 2 - PCV) 1971 Hepatitis B Vaccine (1 of 3 - 19+ 3-dose series) 10/31 Colorectal Cancer Screening: Annual FOBT 11/01/2015 Colorectal Cancer Screening: Colonoscopy 11/01/2015 Colorectal Cancer Screening: Sigmoidoscopy 11/01/2015 Influenza Vaccine (#1) 2024 Insurance [facility] MEDICAID [facility] MEDICAID Care Teams Cut Off Sawyer Relationship Specialty Start Date End Date Dimas Reid MD [facility] [place] [address] PCP - General Internal Medicine 06/23/21
--- OUTSIDE RECORDS SUMMARY | 2024-09-05 15:03 | XMS_ITS ---
Author Organization [facility] Address [address] [place] [address] Care Team Providers Care Coating Inspector Name Role Phone Franklin CHENEY, [facility] Primary Care Provider Vivek Dockery [phone] Encounters Encounter Location Date Provider Diagnosis [facility] [address] [place] [address] 07/21/2024 Vivek Allen PLAN OF TREATMENT No Information
--- OUTSIDE RECORDS SUMMARY | 2024-09-05 15:04 | XMS_ITS | Patient Health Record ---
Author Organization [facility] Address [address] [place] [address] Care Team Providers Care Textile Broker Name Role Phone Franklin [facility]ENE[facility], [facility] Primary Care Provider Vivek Dockery [phone] ALLERGIES No Known Allergies REASON FOR REFERRAL No Information MEDICATIONS Medication SIG (Take, Route, Frequency, Duration) [...] screening (Z12.11) Active confirmed Colon cancer screening (092320261) Problem Chronic GERD (K21.9) Active confirmed Gastroesophagea l reflux disease (disorder) (755971690) Problem History of hepatitis C (Z86.19) Active confirmed History of hepatitis C (65093693997348) VITAL SIGNS Blood pressure diastolic 00 mm Hg 04/09/2024 Height 5 ft 9 in in 04/09/2024 Blood pressure systolic 00 mm Hg 04/09/2024 Weight 185 lbs 04/09/2024 BMI 27.32 kg/m2 04/09/2024 Encounters Encounter Location Date Provider Diagnosis [facility] [address] [place], [place] [id number] 07/15/2024 Vivek Allen [facility] [address] [place] [address] 04/09/2024 Vivek Allen Colon cancer screening Z12.11 ; Chronic GERD K21.9 and History of hepatitis C Z86.19 [facility] [address] [place] [phone] 07/21/2024 Vivek Allen ASSESSMENTS Encounter Date Diagnosis Assessment Notes Treatment Notes Treatment Clinical Notes 04/09/2024 Colon cancer screening (ICD-10 - Z12.11) Stop the Jantoven(Coumadin) for 5 days before the procedures and get a Lovenox prescription from Dr. Velez 04/09/2024 Chronic GERD (ICD-10 - K21.9) 04/09/2024 History of hepatitis C (ICD-10 - Z86.19) PLAN OF TREATMENT Pending Test Test Name Order Date LIVER PROFILE 04/09/2024 ALPHA-FETOPROTEIN,TUMOR MARKER HEPATITIS C VIRAL LOAD 04/09/2024 HCV LIVER FIBROSIS, FIBRO TEST US abdomen comp w elastography Future Test Test Name Order Date UPPER GI ENDOSCOPY 04/09/2024 COLONOSCOPY 04/09/2024 Insurance Providers Payer Name Payer Address Payer Phone Subscriber Number Group Number Insured Name Patient Relationship to Insured Coverage Start Date Coverage End Date [facility] [address] [address] [place], [place] [id number] MEGAN SAMUEL Self - patient is the insured MEDICAL (GENERAL) HISTORY Medical History History ICD Code Hypertension History of superior mesenter ic vein thrombosis/Erythrocytosis--sees Dr. Velez--on chronic anticoagulation Seasonal allergies History of Hepatitis C--Dr. Caldwell--treated with IF and Ribavirin > 10 years ago GERD Denies SD,DM,CVA,Lung disease,renal dise ase Surgical History Surgery Date(Month/Year) Left cheekbone replaced after trauma Teeth extracted March 12, 2024
== END 2024-09-05 11:26 | disposition home or self-care (01) ==
LOC: HO.ACS 11:11
PROVIDERS: PCP Internal Medicine; Visit Provider Internal Medicine
DX: Z79.01 Long term (current) use of anticoagulants (principal)

== ENCOUNTER 2025-06-17 09:59 | Inpatient (IN) | payer OTHER, SELFPAY ==
--- OUTSIDE RECORDS SUMMARY | 2024-07-15 07:10 | XMS_ITS ---
Author Organization [facility] Address [address] [place] [id number] Care Team Providers Care Manager Ct Name Role Phone Franklin CHENEY, Dimas Primary Care Provider Vivek Dockery [phone] REASON FOR VISIT screening,gerd Encounters Encounter Location Date Provider Diagnosis [facility] Outpatient [address] [place] [id number] 07/15/2024 Vivek Allen Plan Of Treatment No Information Progress Notes * JOHNNY SAMUELOB:1965 (59 yo M)Acc No.[id number]:07/15/2024 COLON WITH MAC Patient: MEGAN RODRIGUEZ Provider: Gretta Allen MD :1965 A ge:58 Y S ex:Male Date:07/15/2024 Address:[address] [place] [address] , [place] l [id number] Pcp:Dimas Reid MD Subjective: * Chief Complaints: * 1 . Screening,gerd. * Medical History: Objective: * Vitals: Assessment: Plan: * Treatment: * * The named appointment provid er may or may not be the originator of this progress note, and it is not deemed complete until electronically signed by the appointment provider. Sign off status: Pending * Provider: Gretta Allen MD Date: 09/15/2023 Generated for Cruzitoi ng/Faelbag/eTransmitting on: 08/17/2024 12:56 PM EST
[2025-06-17] VITALS (16 sets, daily range): BP systolic 138–187; BP diastolic 017–116; PULSE 50–88; RESP 16–18; TEMP 36.2–36.6; O2SAT 70–98; BMI 29.3; BMI 28.5
--- NOTE | ~2025-06-17 | US_ITS ---
CLINICAL HISTORY: LE swelling Bilateral lower extremity venous duplex ultrasound. Comparison: None Technique: Real time sonographic imaging, including color-flow imaging and spectral analysis, was performed by the senior sales administrator. Multiple patient accounting representative static images were saved for review. Findings: The deep venous systems of both lower extremities are fully compressible from common femoral through the proximal leg veins. There is spontaneous and phasic flow, and augmentation. Color Doppler and spectral tracings are unremarkable. Impression: 1. Bilateral lower extremity venous duplex ultrasound negative for DVT This document has been electronically signed by: Sage Talbert MD on 06/17/2025 17:43:09
--- NOTE | ~2025-06-17 | XR_ITS ---
EXAMINATION: XR CHEST CLINICAL INFORMATION: chest pain work up COMPARISON: Chest radiograph on June 17, 2025 TECHNIQUE: 2 views of the chest were obtained. FINDINGS: Lungs: Previously seen prominence of the interstitial markings are less prominent. No focal consolidation. Pleura: No pleural effusion or pneumothorax. Heart/Mediastinum: Cardiac size is within normal limits. Moderate size hiatal hernia. Bones: No acute findings. XR/XR chest 2V IMPRESSION: No focal consolidation. Electronically signed by: Alice Hough MD 06/18/2025 07:01 AM [facility]
--- NOTE | ~2025-06-17 | XR_ITS ---
EXAMINATION: XR CHEST CLINICAL INFORMATION: cp COMPARISON: July 31, 2016. TECHNIQUE: Frontal view of the chest was obtained. FINDINGS: Pulmonary reticular nodular pattern. No hyperinflation. There is a hiatal hernia, moderate size. Heart silhouette size is normal. Calcified plaque thoracic aorta. Multilevel spondylosis, thoracic spine. XR/XR chest 1V IMPRESSION: Acute on chronic airspace disease. Hiatal hernia. Electronically signed by: Rashid Jones MD 06/17/2025 11:05 AM [facility]
--- NOTE | ~2025-06-17 | CT_ITS ---
EXAMINATION: CT ANGIOGRAM ABDOMEN AORTA CLINICAL INFORMATION: History of splenic vein thrombosis. COMPARISON: July 31, 2016 demonstrated occlusive thrombus in the superior mesenteric vein extending into the confluent proximal segment Main portal vein. TECHNIQUE: Multiple axial images were obtained through the abdomen following the administration of 100 mL Omnipaque 350 intravenous contrast during the arterial phase. Images were reviewed on a dedicated 3-D workstation. No reported immediate complications. This CT examination was performed using dose optimization techniques as appropriate, variously including the following: *Automated exposure control *Adjustment of mA and/or kV according to patient size (this includes techniques or standardized protocols for targeted exams where dose is matched to indication/reason for exam; i.e. extremities or head) *Use of iterative reconstruction technique DLP: 338 mGy-cm FINDINGS: The abdominal aorta is patent with mixed plaques throughout the wall. No IV contrast dilatation. No intimal flap. No periaortic edema pattern or fluid collections. Abdominal aorta dimensions as follow: Proximal/suprarenal segment: 2.3 x 2.3 cm. Infrarenal segment: 1.9 x 2.0 cm. Distal segment: 1.7 x 1.6 cm. Right common iliac artery is patent with mixed plaque and diameter of 0.9 cm. Left common iliac artery is patent with mixed plaque and diameter of 0.9 cm. Celiac trunk is patent without focal stenosis or plaques. Superior mesenteric artery is patent without focal stenosis. Small calcified plaque. Inferior mesenteric artery is patent. Main renal arteries are patent without focal stenosis. Small plaque in the left renal artery. Splenic artery is patent without focal stenosis. Ancillary findings: Nodular enlarged liver. Subcentimeter hypodense lesions. Bilateral renal cysts, the largest measures 11 cm in the right kidney. Abundant stool, large intestine. No ascites. Nonspecific prominent mesenteric lymph nodes. Hiatal hernia, large volume. CT/CT angio abdomen IMPRESSION: No aneurysm or dissection or high-grade degree stenosis, abdominal aorta. Atherosclerosis disease. 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 Hiatal hernia, large volume. Bilateral renal cysts. The exam does not evaluate the venous system. . Fleischner guidelines were followed. Electronically signed by: Rashid Jones MD 06/17/2025 12:22 PM [facility] [place]
--- NOTE | 2025-06-17 10:01 | ECG_ITS ---
Test Reason : CP Blood Pressure : */* mmHG Vent. Rate : 99 BPM Atrial Rate : 99 BPM P-R Int : 178 ms QRS Dur : 122 ms QT Int : 352 ms P-R-T Axes : 42 18 57 degrees QTcB Int : 451 ms Normal sinus rhythm Minimal voltage criteria for LVH, may be normal variant ( Christiano product ) Cannot rule out Inferior infarct , age undetermined Abnormal ECG No previous ECGs available Referred By: Chelsie Adair Electronically Signed By: REYNA SANON MD
[2025-06-17 11:02] LABS: MANUAL DIFF FLAG NO
[2025-06-17 11:04] LABS: Hematocrit 52.5 % (42.0-52.0); Hemoglobin 17.7 g/dl (14.0-18.0); Imm Gran Abs Auto 0.00 X10*3/uL (0.00-0.03); Imm Gran Pct Auto 0.0 % (0.0-0.4); Lymphocytes Absolute Auto 0.7 X10*3/uL (1.2-4.9); Mean Corpuscular HGB Conc 33.7 g/dl (31.0-36.0); Mean Corpuscular Hemoglobin 27.1 pg (27.0-33.0); Mean Corpuscular Volume 80.4 fL (80.0-98.0); NRBC Abs Auto 0.000 X10*3/uL (0.0-0.012); NRBC Pct Auto 0.0 /100WBC (0.0-0.2); Platelet Count 128 X10*3/uL (160-400); Red Blood Count 6.53 X10*6/uL (4.60-5.80); White Blood Count 3.6 X10*3/uL (4.8-10.8)
[2025-06-17 11:18] LABS: Alanine Aminotransferase 36 U/L (0-40); Albumin Level 4.6 g/dL (3.5-5.0); Alkaline Phosphatase 75 U/L (39-117); Anion Gap 13 (12-20); Aspartate Amino Transferase 27 U/L (5-37); Blood Urea Nitrogen 13 mg/dL (9-16); Calcium 9.6 mg/dL (8.4-10.2); Carbon Dioxide 26 mmol/L (22-29); Chloride 105 mmol/L (96-108); Creatinine Clr Calc Pharmacy 94.0; Estimated Glomerular Filt Rate > 60; Potassium 3.7 mmol/L (3.3-5.1); Sodium 140 mmol/L (135-145); Total Protein 7.1 g/dL (6.5-8.0)
[2025-06-17 11:19] LABS: INTERNATIONAL NORM RATIO 1.0 (0.9-1.1); Prothrombin Time 12.8 SEC (11.2-13.5)
[2025-06-17 11:26] LABS: Troponin-I High Sensitivity 56.0 ng/L (<3.5-35.0)
--- NOTE | 2025-06-17 11:33 | PC.NURSE ---
Pt has been sinus on monitor. c/o non reproducable mid sternal pain. axox3. skin pwd. unlabored resp.
[2025-06-17 11:40] LABS: D Dimer High Sensitivity < 150 NG/ML
--- NOTE | 2025-06-17 11:43 | ED_ITS ---
HPI - Chest Pain General Chief Complaint: Chest Pain Stated Complaint: Chest pain, feels like burning. Hx of blood clot Time Seen by Provider: 06/17/25 11:17 Source: patient Mode of arrival: ambulatory Limitations: no limitations History of Present Illness ED Provider: DR. Greene HPI narrative: 59-year-old male history of splenic venous thrombosis supposed to be on Coumadin patient is not compliant with anticoagulation nor antihypertensive medication, started to have epigastric burning sensation that is radiating to the left side of the chest, pain is associated with shortness of breath. No lower extremity swelling or tenderness, no recent travel or prolonged immobilization. Patient using nonprescription Suboxone buy from the street. Related Data Previous Rx's ?Medication ?Instructions ?Recorded warfarin 5 mg tablet 5 mg .Route .COMPLEX #90 tab s 04/15/24 amlodipine 10 mg tablet 10 mg PO DAILY 90 days #90 t abs 10/28/24 omeprazole 20 mg capsule,delayed 20 mg PO DAILY 90 day s #90 caps 10/28/24 release Allergies Allergy/AdvReac Type Severity Reaction Status Date / Time Seasonal Allergies Allergy Mild Itchy Eyes Verified 06/17/25 10:38 Review of Systems 2 Review of Systems: All other systems are reviewed and are negative Constitutional: Reports as per HPI and Reports no additional constitutional complaints Eyes: Reports as per HPI and Reports no additional eye complaints Reports system reviewed and no additional complaints, except as documented Cardiovascular: Reports as per HPI and Reports no additional cardiovascular complaints Respiratory: Reports as per HPI and Reports no additional respiratory complaints Gastrointestinal: Reports as per HPI and Reports no additional gastrointestinal complaints Genitourinary: Reports no additional female genitourinary complaints Musculoskeletal: Reports no additional musculoskeletal complaints Skin/Breast: Reports system reviewed and no additional complaints, except as docu Psychiatric: Reports no additional psychiatric complaints Endocrine: Reports no additional endocrine complaints Hematologic/Lymphatic: Reports no additional hematologic/lymphatic complaints Allergic/Immunologic: Reports no additional allergic/immunologic complaints Reports system reviewed and no additional complaints, except as documented and Reports Abnormal speech present [facility] Past Medical History Medical History Erythrocytosis Tachycardia Anxiety, generalized Tobacco abuse Dyspepsia Splenic vein thrombosis Hepatitis C antibody positive in blood Hypertension, essential Bipolar 1 disorder Surgical History History of surgery History of tonsillectomy Family History Family History Father HTN (hypertension) Mother HTN (hypertension) Brother HTN (hypertension) Maternal Grandfather No problems noted. Maternal Grandmother No problems noted. Paternal Grandfather No problems noted. Paternal Grandmother No problems noted. Brother No problems noted. Sister No problems noted. Daughter No problems noted. Other Substance use disorder Social History Social History Household Members: Family Housing: [facility] Are you a primary client care specialist to a significant other at home: No Do you presently have visiting nurse or other home services: No Alcohol intake: former Patient Tobacco Use Status: Current everyday Tobacco user Tobacco use type: Cigarette Cigarette Packs Per Day: 0.5 Years Smoked: 17 Smoked in Last 30 Days: Yes e-Cigarette/Vaping Use: Never Used Use of substances other than those prescribed or required for medical reasons: Yes Substance Use Type: Other Substance Use Type Other:: suboxone Substance Use Frequency: Occasionally Last Used Substance: Hours (ago) Advance Directives: No Advance Directives Information Provided: No Do you have a plan to hurt others: No Plan service: No Current occupational status: disabled Cognitive needs: No Hearing needs: No Vision needs: Yes Physical Exam 2 Vital Signs: Vital Signs: Last Vital Signs Temp 98 F 06/17/25 10:35 Pulse 51 06/17/25 15:24 Resp 18 06/17/25 11:00 BP 146/81 H 06/17/25 15:24 Pulse Ox 95 06/17/25 11:00 O2 Del Method Room Air 06/17/25 11:00 BMI result Body Mass Index 29.3 Vital signs have been reviewed and appear to be correct. Blood pressure elevated. Heart rate normal. Respiratory rate normal. Temperature normal. Oxygen saturation normal. Appearance: Alert. Oriented X3. No acute distress. Head: Normal external exam. Normocephalic. Atraumatic. No Gongora signs noted. No raccoon eyes noted Eyes: PERRLA. EOMI. Conjunctiva and sclera normal. Eyelids normal. ENT: TM's Normal. Pharynx normal. Uvula midline. Moist mucous membranes. No trismus noted. No drooling noted. No muffled voice noted. Neck: Normal inspection. Neck supple. FROM. No adenopathy. Thyroid Normal. No meningeal signs. No neck mass noted. CVS: Normal heart rate and rhythm. Heart sound normal. No murmurs noted. Pulses normal throughout. Respiratory: No respiratory distress. Painless inspiration. Breath sounds normal. No wheezes/rales/rhonchi noted. Chest nontender. No accessory muscle usage noted or decreased air movement noted. Abdomen: Soft and nontender. Bowel sounds normal in all 4 quadrants. No distention noted. No organomegaly noted. No visible injury noted. Back: No CVA tenderness. Full range of motion noted. Skin: Skin warm and dry. Normal skin color. Normal skin turgor. No rashes/lesions/lacerations noted. Extremities: No lower extremity edema. Extremities exhibit normal range of motion. Extremities nontender. Neuro: Oriented X 3. Cranial nerve exam: II-XII are grossly intact No motor deficit. No sensory deficit. Reflexes normal. Course Reevaluation(s) Reevaluation #1: Chest pain, elevated troponin, hypertensive. Treat for non STEMI aspirin, beta conrado, nitro paste, and anticoagulation. Case discussed with Dr. Garcia who recommended admission for further echo and blood pressure control. Patient initially received a dose of empiric antibiotic for possible pneumonia. CT abdomen pelvis shows no splenic venous thrombosis, D-dimer is negative to indicate pulmonary embolism. Time: 13:55 Medications Administered Generic Name Dose Route Start Last Admin Trade Name Freq PRN Reason Stop Dose Admin Nitroglycerin 0.4 mg 06/17/25 14:16 06/17/25 15:05 Nitroglycerin 0.4 Mg Tab.Subl SUBLINGUAL 0.4 1000units [id number] PRN Administration Chest Pain Discontinued Medications Generic Name Dose Route Start Last Admin Trade Name Freq PRN Reason Stop Dose Admin Al Hydroxide/Mg Hydroxide 30 ml 06/17/25 11:43 06/17/25 12:29 Magnesium Hydrox/Alum Hydrox 30 Ml Oral.Susp PO 06/17/25 11:44 30 ml ONCE ONE Administration Aspirin 324 mg 06/17/25 13:49 06/17/25 15:07 Aspirin 81 Mg Tab.Chew PO 06/17/25 13:50 324 mg ONCE ONE Administration Ceftriaxone Sodium 1 gm/ 50 mls @ 100 mls/hr 06/17/25 11:50 06/17/25 12:59 Sodium Chloride IV 06/17/25 12:19 Infused ONCE ONE Infusion Iohexol 100 ml 06/17/25 12:07 06/17/25 12:07 Iohexol 350 Mg/Ml 100 Ml Infus..Btl IV 06/17/25 12:08 80 ml ONCE ONE Administration Metoprolol Tartrate 25 mg 06/17/25 13:49 06/17/25 15:24 Metoprolol Tartrate 25 Mg Tablet PO 06/17/25 13:50 Not Given ONCE ONE Protocol Metoprolol Tartrate 5 mg 06/17/25 14:30 06/17/25 15:25 Metoprolol Tartrate 5 Mg/5 Ml Vial IVPUSH 06/17/25 14:41 Not Given Q5M [facility] Protocol Nitroglycerin 0.5 inch 06/17/25 13:49 06/17/25 15:17 Nitroglycerin 2 % Oint 1 Gm Packet TRANSDERMA 06/17/25 13:50 0.5 inch ONCE ONE Administration Medical Decision Making Differential Diagnosis Differential Diagnoses: The differential diagnosis associated with the presentation includes (ACS, GERD, pulmonary embolism, splenic venous thrombosis, pneumonia, pneumothorax, pleural effusion, electrolyte derangement, severe anemia.) Admission/Observation Consideration of admission/observation: Escalation of care including admission/observation considered Consult Healthcare Provider Management of the patient was discussed with: Hospitalist (Dr. Daniels) and Clinical Trials Nurse (Dr. Garcia) Lab Data MDM Lab Attestation statement: I reviewed the patient's lab results. 06/17/25 14:56 06/17/25 14:56 Labs: Lab Results 06/17/25 06/17/25 Range/Units 10:56 12:33 WBC 3.6 L (4.8-10.8) X10*3/uL RBC 6.53 H (4.60-5.80) X10*6/uL Hgb 17.7 (14.0-18.0) g/dl Hct 52.5 H (42.0-52.0) % MCV 80.4 (80.0-98.0) fL MCH 27.1 (27.0-33.0) pg MCHC 33.7 (31.0-36.0) g/dl RDW 13.2 (11.0-16.0) % Plt Count 128 L D (160-400) X10*3/uL MPV 9.5 (9.4-12.4) fL Immature Gran % (Auto) 0.0 (0.0-0.4) % Neut % (Auto) 73.5 H (45-73) % Lymph % (Auto) 19.4 L (20-40) % [place] % (Auto) 6.2 (2-11) % Eos % (Auto) 0.6 (0-4) % Baso % (Auto) 0.3 (0-2) % Lymph # (Auto) 0.7 L (1.2-4.9) X10*3/uL [place] # (Auto) 0.2 (0.1-1.2) X10*3/uL Eos # (Auto) 0.0 (0.0-0.4) X10*3/uL Baso # (Auto) 0.0 (0.0-0.2) X10*3/uL Abs Immat Gran (auto) 0.00 (0.00-0.03) X10*3/uL Absolute Neuts (auto) 2.6 (2.0-8.3) x10*3/uL Absolute Nucleated RBC 0.000 (0.0-0.012) X10*3/uL Nucleated RBC % (auto) 0.0 (0.0-0.2) /100WBC PT 12.8 (11.2-13.5) SEC INR 1.0 (0.9-1.1) D-Dimer High Sensitivty < 150 NG/ML Sodium 140 (135-145) mmol/L Potassium 3.7 (3.3-5.1) mmol/L Chloride 105 (96-108) mmol/L Carbon Dioxide 26 (22-29) mmol/L Anion Gap 13 (12-20) BUN 13 (9-16) mg/dL Creatinine 0.95 (0.5-1.4) mg/dL Estim Creat Clear Calc 94.0 Estimated GFR > 60 Random Glucose 148 H (60-115) mg/dL Lactic Acid 1.6 (0.5-2.0) mmol/L Calcium 9.6 (8.4-10.2) mg/dL Total Bilirubin 0.7 (0.0-1.0) mg/dL AST 27 (5-37) U/L ALT 36 (0-40) U/L Alkaline Phosphatase 75 (39-117) U/L Troponin I High Sens 56.0 H 149.5 H* D (<3.5-35.0) ng/L Total Protein 7.1 (6.5-8.0) g/dL Albumin 4.6 (3.5-5.0) g/dL Independent Interpretation I performed an independent interpretation of an: Plain X-Ray (Chest: Acute on chronic airspace.) and CT Scan (Abdomen pelvis:No aneurysm or dissection or high-grade degree stenosis, abdominal aorta. Atherosclerosis disease. 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 Hiatal hernia, large volume. Bilateral renal cysts. The exam does not evaluate the venous system. . ) Radiology Impression Discussion of test interpretation with radiology: I have reviewed the radiologist's reading. Discharge Plan Discharge Clinical Impression: Non-STEMI (non-ST elevated myocardial infarction), Hypertensive urgency Patient Disposition: Admitted As Inpatient
[2025-06-17] MEDS: iohexoL 350 MG/ML 100 ML INFUS..BTL IV (12:07)
[2025-06-17] MEDS: Magnesium Hydrox/Alum Hydrox 30 ML ORAL.SUSP PO (12:29)
--- OUTSIDE RECORDS SUMMARY | 2025-06-17 12:57 | XMS_ITS | Patient Health Record ---
Author Organization [facility] Address [address] [place] [address] Care Team Providers Care Broaching Machine Repairer Name Role Phone Franklin CHENEY, [facility] Primary Care Provider Vivek Dockery [phone] Allergies No Known Allergies Reason For Referral No Information Medications Medication SIG (Take, Route, Frequency, Duration) Notes Start Date End Date Status amLODIPine Besylate 10 MG TAKE ONE TABLE T BY MOUTH EVERY DAY Oral; Duration: 90 Active Omeprazole 20 MG TAKE ONE CAPSULE BY MOUTH EVERY DAY Oral; Duration: 90 Active Jantoven 5 MG TAKE 1 AND 1/2 TABLE TS 7.5MG) DAILY 5 DAYS A WEEK AND TAKE 2 TABLETS 10MG) DAILY 2 DAYS A WEEK DIRECTED Oral; Duration: 54 Active Lisinopril Active Social History Tobacco Use: Social History Observation Description Date Details (start date - stop date) Current Smoker NA - NA Tobacco Use/Smoking Question Answer Notes Patient is a current smoker How often do you smoke cigarettes? every day How many cigarettes a day do you smoke? 11-20 Alcohol Screen Question Answer Notes Did you have a drink containing alcohol in the p ast year? No Points 0 Interpretation Negative Section Notes: Smoker; abstinent for drugs for > 20 years; no sig alcohol Problems Problem Type SNOMED Code ICD Code Onset Dates Problem Status W/U Status Risk Notes Problem Colon cancer screening (955861944) Colon cancer screening (Z12.11) Active confirmed Problem History of hepatitis C (40894453056805) History of hepatitis C (Z86.19) Active confirmed Problem Gastroesophageal reflux disease (disorder) (411047574) Chronic GERD (K21.9) Active confirmed Encounters Encounter Location Date Provider Diagnosis [facility] [address] [place] [address] 07/21/2024 Vivke Allen Plan Of Treatment Pending Test Test Name Order Date LIVER [...] Insured Coverage Start Date Coverage End Date [facility] [employer] [facility] [address] [address] [place], [place] [id number] MEGAN SAMUEL Self - patient is the insured Medical (General) History Medical History History ICD Code Hypertension History of superior mesenter ic vein thrombosis/Erythrocytosis--sees Dr. Velez--on chronic anticoagulation Seasonal allergies History of Hepatitis C--Dr. Caldwell--treated with IF and Ribavirin > 10 years ago GERD Denies [place],DM,CVA,Lung disease,renal dise ase Surgical History Surgery Date(Month/Year) Left cheekbone replaced after trauma Teeth extracted March 12, 2024
[2025-06-17 13:22] LABS: Troponin-I High Sensitivity 149.5 ng/L (<3.5-35.0)
--- NOTE | 2025-06-17 14:00 | P.HPHOSP_ITS ---
History of Present Illness Date of Service: 06/17/25 Chief Complaint: chest pain Patient is a 59-year-old male with PMH notable for medication noncompliance, missed appointments, HTN not taking home meds, suppose it portal vein thrombosis (not compliant with anticoagulation warfarin), anxiety, current tobacco use, S UD (off the street Suboxone treatment), hep C not treated, bipolar 1 not on any medication, comes in with chest pain /, burning type, substernal, nonradiating, without diaphoresis or lightheadedness. Patient reports that he stopped taking medications since summer just because he did not feel like it and he was fed up?. Patient was very pleasant to talk to however he did note that he has had headaches and felt off and all his problems are from not taking his home medications. He reports taking Suboxone off the street from his friends, reports current smoking and acid reflux, denies alcohol a other substances. Patient acceptable to addiction Medicine consult. Workup and treatment in the ED revealed up trending troponinemia, pancytopenia, hypertensive urgency with good response to nitroglycerin paste (blood pressure responded from 180s to 140s with administration of nitro), brisk response to metoprolol x2-sinus Scott in the 50s, received aspirin. Patient was undergoing echo while I was interviewing him along with the bedside RN. We all had very pleasant conversation with the patient and he is aware that all his problems would be solved if he took his medication. Patient is being admitted for further medical management. Review of Systems 2 Review of Systems: Yes all other systems are reviewed and are negative [facility] Medical History Erythrocytosis Tachycardia Anxiety, generalized Tobacco abuse Dyspepsia Splenic vein thrombosis Hepatitis C antibody positive in blood Hypertension, essential Bipolar 1 disorder Family History Father HTN (hypertension) Mother HTN (hypertension) Brother HTN (hypertension) Maternal Grandfather No problems noted. Maternal Grandmother No problems noted. Paternal Grandfather No problems noted. Paternal Grandmother No problems noted. Brother No problems noted. Sister No problems noted. Daughter No problems noted. Other Substance use disorder Surgical History History of surgery History of tonsillectomy Social History Household Members: Family Housing: Condominium Are you a primary director of career resources to a significant other at home: No Do you presently have visiting nurse or other home services: No Alcohol intake: former Patient Tobacco Use Status: Current everyday Tobacco user Tobacco use type: Cigarette Cigarette Packs Per Day: 0.5 Years Smoked: 17 Smoked in Last 30 Days: Yes e-Cigarette/Vaping Use: Never Used Use of substances other than those prescribed or required for medical reasons: Yes Substance Use Type: Other Substance Use Type Other:: suboxone Substance Use Frequency: Occasionally Last Used Substance: Hours (ago) Advance Directives: No Advance Directives Information Provided: No Do you have a plan to hurt others: No Plan service: No Current occupational status: disabled Cognitive needs: No Hearing needs: No Vision needs: Yes Meds Allergies Allergy/AdvReac Type Severity Reaction Status Date / Time Seasonal Allergies Allergy Mild Itchy Eyes Verified 06/17/25 10:38 Physical Exam 2 Vital Signs and Narrative: Vital Signs: Last Vital Signs Temp 98 F 06/17/25 10:35 Pulse 80 06/17/25 10:35 Resp 18 06/17/25 10:35 BP 176/017 H 06/17/25 10:35 Pulse Ox 98 06/17/25 10:35 BMI result Body Mass Index 29.3 General: AOx3, no acute distress Resp: CTA bilaterally CVS: Sinus bradycardia GI: +BS, NT, no distention Skin: Warm, dry Neuro: Motor grossly intact bilaterally Extremities: No edema Psych: Anxious but Appropriate affect Results Labs 06/17/25 14:56 06/17/25 14:56 Labs: Laboratory Results - last 24 hr 06/17/25 06/17/25 10:56 12:33 MCV 80.4 MCH 27.1 MCHC 33.7 RDW 13.2 Plt Count 128 L D MPV 9.5 Immature Gran % (Auto) 0.0 Neut % (Auto) 73.5 H Lymph % (Auto) 19.4 L Peach % (Auto) 6.2 Eos % (Auto) 0.6 Baso % (Auto) 0.3 Lymph # (Auto) 0.7 L Peach # (Auto) 0.2 Eos # (Auto) 0.0 Baso # (Auto) 0.0 Abs Immat Gran (auto) 0.00 Absolute Neuts (auto) 2.6 Absolute Nucleated RBC 0.000 Nucleated RBC % (auto) 0.0 PT 12.8 INR 1.0 D-Dimer High Sensitivty < 150 Anion Gap 13 Estim Creat Clear Calc 94.0 Estimated GFR > 60 Random Glucose 148 H Lactic Acid 1.6 Calcium 9.6 Total Bilirubin 0.7 AST 27 ALT 36 Alkaline Phosphatase 75 Troponin I High Sens 56.0 H 149.5 H* D Total Protein 7.1 Albumin 4.6 Imaging Radiologist's Impressions: Impressions Chest X-Ray 06/17/25 10:55 IMPRESSION: Acute on chronic airspace disease. Hiatal hernia. Electronically signed by: Rashid Jones MD 06/17/2025 11:05 AM EST RP Abdomen CTA 06/17/25 12:00 IMPRESSION: No aneurysm or dissection or high-grade degree stenosis, abdominal aorta. Atherosclerosis disease. 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 Hiatal hernia, large volume. Bilateral renal cysts. The exam does not evaluate the venous system. . Fleischner guidelines were followed. Electronically signed by: Rashid Jones MD 06/17/2025 12:22 PM EST RP Assessment and Plan (1) Hypertensive urgency: Status: Acute Plan Patient is a 59-year-old male with PMH notable for medication noncompliance, missed appointments, HTN not taking home meds, suppose it portal vein thrombosis (not compliant with anticoagulation warfarin), anxiety, current tobacco use, NATY (off the street Suboxone treatment), hep C not treated, bipolar 1 not on any medication, comes in with chest pain 05/16, burning type, substernal, nonradiating and is likely having substernal chest pain suggestive of CAD origin in the setting of medication noncompliance. Chest pain likely secondary to CAD-medication noncompliance Chronic HTN not on medication due to patient noncompliance Up trending troponinemia-type 2 RI from demand ishemia chest pain /, burning type, substernal, nonradiating and is likely having substernal chest pain suggestive of CAD origin in the setting of medication noncompliance given his brisk response to nitroglycerin with symptomatic improvement in chest pain and blood pressure, as well as troponins, EKG and telemetry Given that the patient has not been compliant to meds-I have reinforced medication compliance-patient is that he will continue taking his home meds Patient needs a fresh echo (prior echo was done in 2016 and it showed LVEF 50- 60%) which was being done at the time of my patient encounter in the ED-we will follow up on the results Continue to monitor on telemetry Continue to trend troponin until peaked EKG unremarkable for any STEMI Hold off on metoprolol as the patient is in sinus bradycardia with very sensitive to metoprolol Patient is currently chest pain free reports 2/10 chest pain post nitro Patient has nitro paste for hypertensive urgency Check electrolytes daily and treat to goal To rule out DVT we will ultrasound the legs Patient is on therapeutic Lovenox 1 milligram/kilogram q.12 hours Cardiology consulted we will likely see the patient in the a.m. Off the street Suboxone use patient reports taking Suboxone off the streets p.r.n. 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 Chronic Hiatal hernia-outpatient management with GI, for inpatient we will manage with home omeprazole Current tobacco user- Nicotine replacement Patient needs colonoscopy outpatient-patient has been a no-show for multiple appointments for his oncology and GI management Social work consulted as the patient likely needs help with reestablishing PCP, compliance and warfarin Full code We will we will work him up for cardiac etiology of chest pain which is likely mostly in the setting of medication noncompliance people we will optimize his medication and likely discharge him in a day or 2 unless we find other medical comorbidities This note is constructed using voice recognition software. While every effort has been made to ensure accuracy, sports development officer errors may have been included. Quality Stroke Does the patient have a stroke diagnosis?: No VTE Prior VTE?: Yes VTE Risk Level:: Medical - moderate - high VTE Device Contraindication: N/A - Device Ordered VTE Drug Contraindication: N/A - Med Ordered
--- NOTE | 2025-06-17 14:17 | ECG_ITS ---
Test Reason : chest pain Blood Pressure : */* mmHG Vent. Rate : 53 BPM Atrial Rate : 53 BPM P-R Int : 202 ms QRS Dur : 122 ms QT Int : 424 ms P-R-T Axes : 34 12 54 degrees QTcB Int : 397 ms Sinus bradycardia Non-specific intra-ventricular conduction delay Minimal voltage criteria for LVH, may be normal variant ( [place] product ) Nonspecific T wave abnormality Abnormal ECG When compared with ECG of 17-Jun-2025 10:03, Vent. rate has decreased by 46 bpm Minimal criteria for Inferior infarct are no longer Present QT has shortened Referred By: Frances Platt Electronically Signed By: REYNA SANON MD
--- NOTE | 2025-06-17 14:23 | PHA.MEDREC ---
Addendum entered by Geovanna Price RPh 06/17/25 14:47: MED REC REVIEWED BY [facility]. Dr. Platt would like the amlodipine, omeprazole and warfarin to stay in home med list with note that pt hasn't taken in months . Original Note: Pharmacy Consult ? Medication Reconciliation Pharmacy has completed the medication reconciliation. Patient states he is not taking any medications at this time, however he should be taking Amoldipine , Omeprazole , and warfarin . Patient has been off all his medications in a few months .
--- NOTE | 2025-06-17 15:00 | CA_ITS ---
Transthoracic Echocardiogram Patient (Last, First, Middle): Conor Farnsworth T Gender: M Date of : 1965 Age: 59 Procedure Date: 06/17/2025 Procedure Type: Transthoracic Echocardiogram Location: ER Height: 175.26 cm Weight: 89.81 kg BSA: 2.06 m2 Heart Rate: 55 bpm BP: 178 / 110 mmHg Fleet Manager: SHAUN Referring MD: Frances Platt MD Rn Utilization Management Um: Luis Garcia MD Symptoms: chest pain, ?nstemi Study Quality: Adequate ECG Rhythm: Sinus Conclusions: - 1. Low normal LV ejection fraction 50-55% with regional wall motion abnormality suggestive of coronary artery disease with grade 1 diastolic dysfunction 2. Mild fibrocalcific aortic valve changes noted with normal cardiac valvular Dopplers 3. Normal RV systolic pressure 4. No gross pericardial effusion Findings Left Ventricle Normal left ventricular cavity size. There is mildly increased left ventricular wall thickness. The left ventricular systolic function is low normal. The visually estimated ejection fraction is between 50-55%. Spectral Doppler is indicative of an impaired relaxation filling pattern. E/E prime ratio is <8, consistent with normal filling pressures. Evidence suggests grade I (mild) diastolic dysfunction. Wall Motion Rest Echo Findings The inferoseptal wall, the basal inferior, and basal inferolateral segments are hypokinetic. All other scored wall segments showed normal motion. Right Ventricle Normal right ventricular cavity size and systolic function. Atria Both atria are normal in size. There is no evidence of interatrial shunt. Aortic Valve There is mild calcification of the aortic valve. There is no aortic valve stenosis. There is no aortic valve regurgitation. Mitral Valve Normal mitral valve structure and function. There is trace mitral valve regurgitation. There is no mitral valve stenosis. Pulmonic Valve The pulmonic valve is likely normal. There is trace pulmonic valve regurgitation. Tricuspid Valve Normal tricuspid valve structure. There is trace tricuspid valve regurgitation. The right ventricular systolic pressure is normal. The right ventricular systolic pressure is 15 mmHg. Normal right atrial pressure. There is no evidence of pulmonary hypertension. Great Vessels All visible segments of the aorta are normal in size. The pulmonary artery was not well visualized. There is no dilatation of the ascending aorta measuring 3.40 cm. Venous The inferior vena cava is normal in size and collapses greater than 50% with inspiration. Pericardium/Pleural There is no evidence of pericardial effusion. Prior Study Comparison No prior study available for comparison. Measurements 2D Linear Measurements IVSd: 1.24 0.6-0.9/0.6-1.0 cm LVIDd: 4.13 3.9-5.3/4.2-5.9 cm LVIDd Index: 2.00 2.4-3.2/2.2-3.1 cm/m2 LVIDs: 2.27 2.0-3.6 cm LVPWd: 1.34 0.7-1.1 cm LA Diam: 3.90 2.7-3.8/3.0-4.0 cm LAIDs Index: 1.89 1.5-2.3 cm/m2 LV Mass: 240.93 67-162/88-224 g LV Mass Index: 116.96 43-95/49-115 g/m2 LVOT Diam: 2.20 3.0+(-)1.3 cm 2D Systolic Function EF 4C: 53.50 >55% EF 2C: 50.90 >55% EF BiP: 53.10 >55% Mitral Valve MV Pk E: 0.67 MV PK A: 0.85 MV Decel Time: 294.00 E/A: 0.80 E'Lateral: 5.77 E'Medial: 4.03 E/E' Med: 16.70 E/E' Lat: 11.70 PHT: 86.00 MVA PHT: 2.56 Decel Dodge: 2.29 Aortic Valve AoV Pk David: 1.22 AoV Mn David: 0.87 AoV VTI: 0.25 AoV Pk Grad: 6.00 Aov Mn Grad: 4.00 CLAUDETTE Cont.VTI: 3.23 LVOT LVOT Pk David: 0.97 LVOT Mn David: 0.71 LVOT VTI: 0.22 LVOT Pk Grad: 4.00 LVOT Mn Grad: 2.00 LVOT Diam: 2.20 LVOT Area: 3.80 Diastolic Function MV Pk E: 0.67 MV Pk A: 0.85 E/A: 0.80 E'Medial: 4.03 E/E' Med: 16.70 E' Laterial: 5.77 E/E' Lat: 11.70 Right Ventricle TAPSE (mm): 25.70 TVS' David: 9.03 Tricuspid Valve TR Pk David: 1.72 TR Pk Grad: 12.00 RA Press: 3.00 RVSP: 15.00 Great Vessels Aorta Sinus of Valsalva: 3.70 2.0-3.5 cm Ao Asc: 3.40 2.1-3.4 cm Ao Arch: 3.10 Pulmonary Veins Pulm Vein S/D 0.80 Pulmonary Valve PV Pk David: 1.03 Peak PV Grad: 4.00 Updated in Other Vendor System with Status of Final Luis Garcia MD electronically signed on 06/17/2025 4:09:33 PM with status of Final
--- NOTE | 2025-06-17 15:03 | PC.NURSE ---
Pt c/o 6/10 chest pain described as burning. Pt medicated w/ sl nitro x 1
[2025-06-17] MEDS: Nitroglycerin 2 % Oint 1 GM Packet 0.5 INCH TRANSDERMA (15:17)
[2025-06-17 15:25] LABS: Hemoglobin A1C 115.3924 umol/L; Total Hemoglobin (HGBA1C) 2986.9751 umol/L
[2025-06-17 15:30] LABS: Blood Urea Nitrogen 11 mg/dL (9-16); Creatinine Clr Calc Pharmacy 114.5; Estimated Glomerular Filt Rate > 60
--- NOTE | 2025-06-17 15:37 | HO.NURTONUR ---
Pt here today w/ c/o ssc burning started this am and worsened after attmepting to eat breakfast. Pt has extensive pmhx of splenic thrombus and admits he has been non-compliant w/ meds since some time in the summer Pt admits he had a temper tantrum w/ provider and decided to stop taking meds altogether. Pt was found to be hypertensive in ED. At 1505 pt c/o 6/10 chest burning and was medicat w/ sl nitro x 1 w/ good effect. Pt was also tx'd w/ metoprolol x 2 doses and 3rd dose held by provider secondary to bradycardia. Pt had cardiac echo done while in ED. Pt is independent w/ ADL's
[2025-06-17 15:38] LABS: Blood Urea Nitrogen 11 mg/dL (9-16); Creatinine Clr Calc Pharmacy 117.5; Estimated Glomerular Filt Rate > 60; Magnesium 2.0 mg/dL (1.6-2.6)
[2025-06-17 15:39] LABS: Hematocrit 52.1 % (42.0-52.0); Hemoglobin 17.7 g/dl (14.0-18.0); Mean Corpuscular HGB Conc 34.0 g/dl (31.0-36.0); Mean Corpuscular Hemoglobin 27.2 pg (27.0-33.0); Mean Corpuscular Volume 80.2 fL (80.0-98.0); NRBC Abs Auto 0.000 X10*3/uL (0.0-0.012); NRBC Pct Auto 0.0 /100WBC (0.0-0.2); Platelet Count 147 X10*3/uL (160-400); Red Blood Count 6.50 X10*6/uL (4.60-5.80); White Blood Count 5.1 X10*3/uL (4.8-10.8)
[2025-06-17 15:45] LABS: Troponin-I High Sensitivity 266.3 ng/L (<3.5-35.0)
[2025-06-17 15:53] LABS: Thyroid Stimulating Hormone 2.00 uIU/mL (0.32-4.0)
[2025-06-17 16:30] LABS: Appearance Urine Clear; Glucose Urine UA Negative (Negative); PH 6.5 (5.0-9.0); Specific Gravity - Urine >= 1.030 (1.005-1.025)
[2025-06-17 16:40] LABS: Cannabinoid Screen Urine Not Detected (Not Detect)
[2025-06-17 16:41] LABS: NT Pro B Type Natriuretic Pept 104.5 pg/mL (<300)
[2025-06-17] MEDS: Lactated Ringers 1,000 ML 100 ML IVCONT (17:46)
[2025-06-17 19:08] LABS: Glucose, Whole Blood 98 mg/dL (60-115)
[2025-06-17 19:19] LABS: Troponin-I High Sensitivity 240.8 ng/L (<3.5-35.0)
[2025-06-17 21:51] LABS: Glucose, Whole Blood 100 mg/dL (60-115)
[2025-06-17] MEDS: Nitroglycerin 2 % Oint 1 GM Packet 1 INCH TRANSDERMA (22:17)
[2025-06-17] MEDS: 0.9 % Sodium Chloride Flush 3 ML SYRINGE IVFLUSH (22:18)
[2025-06-17 23:56] LABS: Troponin-I High Sensitivity 141.7 ng/L (<3.5-35.0)
[2025-06-18 02:52] VITALS: BP 142/99; PULSE 63; RESP 16; TEMP 36.4; O2SAT 99
[2025-06-18 04:27] LABS: HBS Num1 0.24 mIU/mL (0-7.99); HBc Num1 0.05 S/CO (0.00-0.79); HBsAGNum1 0.39 S/CO (0.00-0.99); Hepatitis A Antibody IgM 0.13 Index (0-0.79); Hepatitis B Surface Antigen Negative (Negative); ~HepC Num1 14.89 S/CO (0.00-0.79); ~Hepatitis A Antibody IgM Nonreactive (Nonreactive); ~Hepatitis B Surface Antibody NONREACTIVE (Nonreactive); ~Hepatitis C Antibody Reactive (Nonreactive)
[2025-06-18 07:04] LABS: Glucose, Whole Blood 113 mg/dL (60-115)
[2025-06-18 07:18] VITALS: BP 150/86; PULSE 63; RESP 18; TEMP 36.2; O2SAT 97
--- NOTE | 2025-06-18 07:19 | HO.PM.IMPN ---
Subjective Subjective Date of Service: 06/18/25 Interval History: Patient has remained chest free and appears to have near optimal normotension with resumption of his home meds-amlodipine However, he was deemed requiring a cardiac catheterization for which he is being transferred to [facility]-awaiting a bed He is now being switched to heparin drip from Lovenox for anticoagulation Troponinemia peaked EKG without any changes Review of Systems Review of Systems: Yes all other systems are reviewed and are negative Physical Exam Exam: Exam: General: AOx3, no acute distress, reports being chest pain-free since being admitted, states I feel like I need to get taking care of this so that I do not get sick Resp: CTA bilaterally CVS: S1, S2, RRR GI: +BS, NT, no distention Skin: Warm, dry Vital Signs: Vital Signs: Last Vital Signs Temp 97.5 F 06/18/25 02:52 Pulse 63 06/18/25 02:52 Resp 16 06/18/25 02:52 BP 142/99 H 06/18/25 02:52 Pulse Ox 99 06/18/25 02:52 O2 Del Method Room Air 06/18/25 02:52 BMI result Body Mass Index 28.5 Objective Data Active Medications Acetaminophen (Acetaminophen 325 Mg Tablet) 650 mg PO Q6H PRN PRN Reason: Pain, Mild 1-3,fever,headache Last Admin: 06/17/25 22:16 Dose: 650 mg Documented By: VESTA Amlodipine Besylate (Amlodipine Besylate 10 Mg Tablet) 10 mg PO DAILY [facility]; Protocol Atorvastatin Calcium (Atorvastatin Calcium 40 Mg Tablet) 40 mg PO BEDTIME [facility] Last Admin: 06/17/25 22:17 Dose: 40 mg Documented By: VESTA Calcium Carbonate (Calcium Carbonate 750 Mg Tab.Chew) 750 mg PO Q4H PRN PRN Reason: Heartburn Dextrose (Dextrose 50 % 25 Gm/50 Ml Syringe) 25 gm IVPUSH Q15M PRN; Protocol PRN Reason: per Hypoglycemia Standing Ord. Docusate Sodium (Docusate Sodium 100 Mg Capsule) 100 mg PO BID [facility] Last Admin: 06/17/25 22:17 Dose: 100 mg Documented By: VESTA Enoxaparin Sodium (Enoxaparin Sodium 100 Mg/Ml Syringe) 90 mg SUBCUT Q12H [facility] Last Admin: 06/18/25 03:56 Dose: 90 mg Documented By: VESTA Glucose (Glucose Gel 15 Gm Gel..Gram.) 15 gm PO Q15M PRN; Protocol PRN Reason: per Hypoglycemia Standing Ord. Influenza Virus Vaccine (Flu Vacc [id number](6mo Up)/Pf 0.5 Ml Syringe) 0.5 ml IM .ONCE ONE Stop: 06/18/25 09:01 Insulin Human Lispro (Insulin Lispro 100 Unit/Ml 3 Ml Vial) 0 unit SUBCUT QIDACHS [facility]; Protocol Last Admin: 06/17/25 22:10 Dose: Not Given Documented By: VESTA Non-Admin Reason: No Insulin Coverage Lidocaine (Lidocaine 4 % Patch Adh..Patch) 2 patch TRANSDERMA DAILY [facility]; Protocol Magnesium Hydroxide (Milk Of Magnesia 30 Ml Oral.Susp) 30 ml PO DAILY PRN PRN Reason: Constipation Melatonin (Melatonin 3 Mg Tablet) 6 mg PO BEDTIME PRN PRN Reason: Insomnia Nitroglycerin (Nitroglycerin 0.4 Mg Tab.Subl) 0.4 mg SUBLINGUAL Q5MX3 PRN PRN Reason: Chest Pain Last Admin: 06/17/25 15:05 Dose: 0.4 1000units Documented By: LINDSEY Nitroglycerin (Nitroglycerin 2 % Oint 1 Gm Packet) 1 inch TRANSDERMA RQ6H WHILE AWAKE [facility] Last Admin: 06/17/25 22:17 Dose: 1 inch Documented By: VESTA Omeprazole (Omeprazole 20 Mg Capsule.Dr) 20 mg PO DAILY@0630 [facility] Last Admin: 06/18/25 06:09 Dose: 20 mg Documented By: VESTA Ondansetron HCl (Ondansetron Hcl 4 Mg/2 Ml Vial) 4 mg IVPUSH Q8H PRN PRN Reason: Nausea and Vomiting Polyethylene Glycol (Polyethylene Glycol 3350 17 Gm Powd.Pack) 17 gm PO DAILY PRN PRN Reason: Constipation Senna (Sennosides 8.6 Mg Tablet) 17.2 mg PO BEDTIME [facility] Last Admin: 06/17/25 22:17 Dose: 17.2 mg Documented By: VESTA Sodium Chloride (0.9 % Sodium Chloride Flush 3 Ml Syringe) 3 ml IVFLUSH QSHIFT [facility] Last Admin: 06/17/25 22:18 Dose: 3 ml Documented By: VESTA Labs 06/18/25 10:03 06/18/25 06:18 Labs: Laboratory Results - last 24 hr 06/17/25 06/17/25 06/17/25 10:56 12:33 14:56 MCV 80.4 Cancelled MCH 27.1 MCHC 33.7 RDW 13.2 Plt Count 128 L D MPV 9.5 Immature Gran % (Auto) 0.0 Neut % (Auto) 73.5 H Lymph % (Auto) 19.4 L [place] % (Auto) 6.2 Eos % (Auto) 0.6 Baso % (Auto) 0.3 Lymph # (Auto) 0.7 L [place] # (Auto) 0.2 Eos # (Auto) 0.0 Baso # (Auto) 0.0 Abs Immat Gran (auto) 0.00 Absolute Neuts (auto) 2.6 Absolute Nucleated RBC 0.000 Nucleated RBC % (auto) 0.0 PT 12.8 INR 1.0 D-Dimer High Sensitivty < 150 Anion Gap 13 Estim Creat Clear Calc 94.0 Estimated GFR > 60 POC Glucose Random Glucose 148 H Estimat Average Glucose Hemoglobin A1c % Lactic Acid 1.6 Calcium 9.6 Magnesium Total Bilirubin 0.7 AST 27 ALT 36 Alkaline Phosphatase 75 Troponin I High Sens 56.0 H 149.5 H* D NT-Pro-B Natriuret Pep Total Protein 7.1 Albumin 4.6 TSH Urine Color Urine Appearance Urine pH Ur Specific [place] Urine Protein Urine Glucose (UA) Urine Ketones Urine Blood Urine Nitrite Ur Leukocyte Esterase Urine Opiates Screen Ur Buprenorphine Scrn Ur Oxycodone Screen Urine Methadone Screen Urine Fentanyl Screen Ur Barbiturates Screen Ur Phencyclidine Scrn Ur Amphetamines Screen U Benzodiazepines Scrn Urine Cocaine Screen U Marijuana (THC) Screen Ethyl Alcohol Urine Ethyl Alcohol Hepatitis A IgM Ab Hep Bs Antigen Hep Bs Antibody Hep B Core Total Ab Hepatitis C Ab (EIA) 06/17/25 06/17/25 06/17/25 14:56 14:56 14:56 MCV 80.2 MCH Cancelled 27.2 MCHC Cancelled 34.0 RDW Cancelled Plt Count MPV Immature Gran % (Auto) Neut % (Auto) Lymph % (Auto) [place] % (Auto) Eos % (Auto) Baso % (Auto) Lymph # (Auto) [place] # (Auto) Eos # (Auto) Baso # (Auto) Abs Immat Gran (auto) Absolute Neuts (auto) Absolute Nucleated RBC Nucleated RBC % (auto) PT INR D-Dimer High Sensitivty Anion Gap Estim Creat Clear Calc Estimated GFR POC Glucose Random Glucose Estimat Average Glucose Hemoglobin A1c % Lactic Acid Calcium Magnesium Total Bilirubin AST ALT Alkaline Phosphatase Troponin I High Sens NT-Pro-B Natriuret Pep Total Protein Albumin TSH Urine Color Urine Appearance Urine pH Ur Specific [place] Urine Protein Urine Glucose (UA) Urine Ketones Urine Blood Urine Nitrite Ur Leukocyte Esterase Urine Opiates Screen Ur Buprenorphine Scrn Ur Oxycodone Screen Urine Methadone Screen Urine Fentanyl Screen Ur Barbiturates Screen Ur Phencyclidine Scrn Ur Amphetamines Screen U Benzodiazepines Scrn Urine Cocaine Screen U Marijuana (THC) Screen Ethyl Alcohol Urine Ethyl Alcohol Hepatitis A IgM Ab Hep Bs Antigen Hep Bs Antibody Hep B Core Total Ab Hepatitis C Ab (EIA) 06/17/25 06/17/25 06/17/25 14:56 14:56 14:56 MCV MCH MCHC RDW 13.3 Plt Count Cancelled 147 L MPV Cancelled 9.7 Immature Gran % (Auto) Neut % (Auto) Lymph % (Auto) [place] % (Auto) Eos % (Auto) Baso % (Auto) Lymph # (Auto) [place] # (Auto) Eos # (Auto) Baso # (Auto) Abs Immat Gran (auto) Absolute Neuts (auto) Absolute Nucleated RBC Cancelled Nucleated RBC % (auto) PT INR D-Dimer High Sensitivty Anion Gap Estim Creat Clear Calc Estimated GFR POC Glucose Random Glucose Estimat Average Glucose Hemoglobin A1c % Lactic Acid Calcium Magnesium Total Bilirubin AST ALT Alkaline Phosphatase Troponin I High Sens NT-Pro-B Natriuret Pep Total Protein Albumin TSH Urine Color Urine Appearance Urine pH Ur Specific [place] Urine Protein Urine Glucose (UA) Urine Ketones Urine Blood Urine Nitrite Ur Leukocyte Esterase Urine Opiates Screen Ur Buprenorphine Scrn Ur Oxycodone Screen Urine Methadone Screen Urine Fentanyl Screen Ur Barbiturates Screen Ur Phencyclidine Scrn Ur Amphetamines Screen U Benzodiazepines Scrn Urine Cocaine Screen U Marijuana (THC) Screen Ethyl Alcohol Urine Ethyl Alcohol Hepatitis A IgM Ab Hep Bs Antigen Hep Bs Antibody Hep B Core Total Ab Hepatitis C Ab (EIA) 06/17/25 06/17/25 06/17/25 14:56 14:56 14:56 MCV MCH MCHC RDW Plt Count MPV Immature Gran % (Auto) Neut % (Auto) Lymph % (Auto) [place] % (Auto) Eos % (Auto) Baso % (Auto) Lymph # (Auto) [place] # (Auto) Eos # (Auto) Baso # (Auto) Abs Immat Gran (auto) Absolute Neuts (auto) Absolute Nucleated RBC 0.000 Nucleated RBC % (auto) Cancelled 0.0 PT INR D-Dimer High Sensitivty Anion Gap Estim Creat Clear Calc 114.5 117.5 Estimated GFR > 60 POC Glucose Random Glucose Estimat Average Glucose Hemoglobin A1c % Lactic Acid Calcium Magnesium Total Bilirubin AST ALT Alkaline Phosphatase Troponin I High Sens NT-Pro-B Natriuret Pep Total Protein Albumin TSH Urine Color Urine Appearance Urine pH Ur Specific [place] Urine Protein Urine Glucose (UA) Urine Ketones Urine Blood Urine Nitrite Ur Leukocyte Esterase Urine Opiates Screen Ur Buprenorphine Scrn Ur Oxycodone Screen Urine Methadone Screen Urine Fentanyl Screen Ur Barbiturates Screen Ur Phencyclidine Scrn Ur Amphetamines Screen U Benzodiazepines Scrn Urine Cocaine Screen U Marijuana (THC) Screen Ethyl Alcohol Urine Ethyl Alcohol Hepatitis A IgM Ab Hep Bs Antigen Hep Bs Antibody Hep B Core Total Ab Hepatitis C Ab (EIA) 06/17/25 06/17/25 06/17/25 14:56 16:19 18:39 MCV MCH MCHC RDW Plt Count MPV Immature Gran % (Auto) Neut % (Auto) Lymph % (Auto) [place] % (Auto) Eos % (Auto) Baso % (Auto) Lymph # (Auto) [place] # (Auto) Eos # (Auto) Baso # (Auto) Abs Immat Gran (auto) Absolute Neuts (auto) Absolute Nucleated RBC Nucleated RBC % (auto) PT INR D-Dimer High Sensitivty Anion Gap Estim Creat Clear Calc Estimated GFR > 60 POC Glucose Random Glucose Estimat Average Glucose 117 Hemoglobin A1c % 5.7 Lactic Acid Calcium Magnesium 2.0 Total Bilirubin AST ALT Alkaline Phosphatase Troponin I High Sens 266.3 H* D 240.8 H* NT-Pro-B Natriuret Pep 104.5 Total Protein Albumin TSH 2.00 Urine Color Yellow Urine Appearance Clear Urine pH 6.5 Ur Specific [place] >= 1.030 H Urine Protein Negative Urine Glucose (UA) Negative Urine Ketones Negative Urine Blood Negative Urine Nitrite Negative Ur Leukocyte Esterase Negative Urine Opiates Screen Not Detected Ur Buprenorphine Scrn Positive H Ur Oxycodone Screen Not Detected Urine Methadone Screen Not Detected Urine Fentanyl Screen Not Detected Ur Barbiturates Screen Not Detected Ur Phencyclidine Scrn Not Detected Ur Amphetamines Screen Not Detected U Benzodiazepines Scrn Not Detected Urine Cocaine Screen Not Detected U Marijuana (THC) Screen Not Detected Ethyl Alcohol < 10 Urine Ethyl Alcohol Cancelled Hepatitis A IgM Ab Nonreactive Hep Bs Antigen Negative Hep Bs Antibody NONREACTIVE Hep B Core Total Ab Nonreactive Hepatitis C Ab (EIA) Reactive H 06/17/25 06/17/25 06/17/25 18:43 21:48 23:12 MCV MCH MCHC RDW Plt Count MPV Immature Gran % (Auto) Neut % (Auto) Lymph % (Auto) [place] % (Auto) Eos % (Auto) Baso % (Auto) Lymph # (Auto) [place] # (Auto) Eos # (Auto) Baso # (Auto) Abs Immat Gran (auto) Absolute Neuts (auto) Absolute Nucleated RBC Nucleated RBC % (auto) PT INR D-Dimer High Sensitivty Anion Gap Estim Creat Clear Calc Estimated GFR POC Glucose 98 100 Random Glucose Estimat Average Glucose Hemoglobin A1c % Lactic Acid Calcium Magnesium Total Bilirubin AST ALT Alkaline Phosphatase Troponin I High Sens 141.7 H* NT-Pro-B Natriuret Pep Total Protein Albumin TSH Urine Color Urine Appearance Urine pH Ur Specific [place] Urine Protein Urine Glucose (UA) Urine Ketones Urine Blood Urine Nitrite Ur Leukocyte Esterase Urine Opiates Screen Ur Buprenorphine Scrn Ur Oxycodone Screen Urine Methadone Screen Urine Fentanyl Screen Ur Barbiturates Screen Ur Phencyclidine Scrn Ur Amphetamines Screen U Benzodiazepines Scrn Urine Cocaine Screen U Marijuana (THC) Screen Ethyl Alcohol Urine Ethyl Alcohol Hepatitis A IgM Ab Hep Bs Antigen Hep Bs Antibody Hep B Core Total Ab Hepatitis C Ab (EIA) 06/18/25 06:57 MCV MCH MCHC RDW Plt Count MPV Immature Gran % (Auto) Neut % (Auto) Lymph % (Auto) [place] % (Auto) Eos % (Auto) Baso % (Auto) Lymph # (Auto) [place] # (Auto) Eos # (Auto) Baso # (Auto) Abs Immat Gran (auto) Absolute Neuts (auto) Absolute Nucleated RBC Nucleated RBC % (auto) PT INR D-Dimer High Sensitivty Anion Gap Estim Creat Clear Calc Estimated GFR POC Glucose 113 Random Glucose Estimat Average Glucose Hemoglobin A1c % Lactic Acid Calcium Magnesium Total Bilirubin AST ALT Alkaline Phosphatase Troponin I High Sens NT-Pro-B Natriuret Pep Total Protein Albumin TSH Urine Color Urine Appearance Urine pH Ur Specific [place] Urine Protein Urine Glucose (UA) Urine Ketones Urine Blood Urine Nitrite Ur Leukocyte Esterase Urine Opiates Screen Ur Buprenorphine Scrn Ur Oxycodone Screen Urine Methadone Screen Urine Fentanyl Screen Ur Barbiturates Screen Ur Phencyclidine Scrn Ur Amphetamines Screen U Benzodiazepines Scrn Urine Cocaine Screen U Marijuana (THC) Screen Ethyl Alcohol Urine Ethyl Alcohol Hepatitis A IgM Ab Hep Bs Antigen Hep Bs Antibody Hep B Core Total Ab Hepatitis C Ab (EIA) Assessment and Plan (1) Acute coronary syndrome: Status: Acute Plan Patient is a 59-year-old male with PMH notable for medication noncompliance, missed appointments, HTN not taking home meds, suppose it portal vein thrombosis (not compliant with anticoagulation warfarin), anxiety, current tobacco use, NATY (off the street Suboxone treatment), hep C not treated, bipolar 1 not on any medication, comes in with chest pain 10/10, burning type, substernal, nonradiating and is likely having substernal chest pain suggestive of ACS origin in the setting of medication noncompliance. Chest pain likely secondary to CAD-medication noncompliance Chronic HTN not on medication due to patient noncompliance Up trending troponinemia-type 2 [place] from demand [place] chest pain 10/10, burning type, substernal, nonradiating and is likely having substernal chest pain suggestive of CAD origin in the setting of medication noncompliance given his brisk response to nitroglycerin with symptomatic improvement in chest pain and blood pressure, as well as troponins, EKG and telemetry Given that the patient has not been compliant to meds-I have reinforced medication compliance-patient is that he will continue taking his home meds Patient needs a fresh echo (prior echo was done in 2016 and it showed LVEF 50-60%) which was being done at the time of my patient encounter in the ED-we will follow up on the results Continue to monitor on telemetry Continue to trend troponin until peaked EKG unremarkable for any STEMI Hold off on metoprolol as the patient is in sinus bradycardia with very sensitive to metoprolol Patient is currently chest pain free reports 2/10 chest pain post nitro Patient has nitro paste for hypertensive urgency Check electrolytes daily and treat to goal To rule out DVT we will ultrasound the legs Patient is on therapeutic Lovenox 1 milligram/kilogram q.12 hours Cardiology consulted we will likely see the patient in the a.m. Off the street Suboxone use patient reports taking Suboxone off the streets p.r.n. 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 Chronic Hiatal hernia-outpatient management with GI, for inpatient we will manage with home omeprazole Current tobacco user- Nicotine replacement Patient needs colonoscopy outpatient-patient has been a no-show for multiple appointments for his oncology and GI management Social work consulted as the patient likely needs help with reestablishing PCP, compliance and warfarin Full code We will we will work him up for cardiac etiology of chest pain which is likely mostly in the setting of medication noncompliance people we will optimize his medication and likely discharge him in a day or 2 unless we find other medical comorbidities This note is constructed using voice recognition software. While every effort has been made to ensure accuracy, fish hatchery assistant errors may have been included. Quality Stroke Does the patient have a stroke diagnosis?: No VTE Prior VTE?: Yes VTE Risk Level:: Medical - moderate - high VTE Device Contraindication: N/A - Device Ordered VTE Drug Contraindication: N/A - Med Ordered
[2025-06-18 07:22] LABS: MANUAL DIFF FLAG NO
[2025-06-18 07:32] LABS: Hematocrit 50.0 % (42.0-52.0); Hemoglobin 17.0 g/dl (14.0-18.0); Imm Gran Abs Auto 0.00 X10*3/uL (0.00-0.03); Imm Gran Pct Auto 0.0 % (0.0-0.4); Lymphocytes Absolute Auto 1.0 X10*3/uL (1.2-4.9); Mean Corpuscular HGB Conc 34.0 g/dl (31.0-36.0); Mean Corpuscular Hemoglobin 27.1 pg (27.0-33.0); Mean Corpuscular Volume 79.7 fL (80.0-98.0); NRBC Abs Auto 0.000 X10*3/uL (0.0-0.012); NRBC Pct Auto 0.0 /100WBC (0.0-0.2); Platelet Count 138 X10*3/uL (160-400); Red Blood Count 6.27 X10*6/uL (4.60-5.80); White Blood Count 3.4 X10*3/uL (4.8-10.8)
[2025-06-18 07:47] LABS: INTERNATIONAL NORM RATIO 1.2 (0.9-1.1); Prothrombin Time 14.6 SEC (11.2-13.5)
[2025-06-18 07:51] LABS: Alanine Aminotransferase 28 U/L (0-40); Albumin Level 4.3 g/dL (3.5-5.0); Alkaline Phosphatase 66 U/L (39-117); Anion Gap 14 (12-20); Aspartate Amino Transferase 24 U/L (5-37); Blood Urea Nitrogen 10 mg/dL (9-16); Calcium 9.3 mg/dL (8.4-10.2); Carbon Dioxide 24 mmol/L (22-29); Chloride 109 mmol/L (96-108); Cholesterol 149 mg/dL (<200); Creatinine Clr Calc Pharmacy 104.9; Estimated Glomerular Filt Rate > 60; HDL Cholesterol 38 mg/dL (>40); Magnesium 1.8 mg/dL (1.6-2.6); Potassium 3.7 mmol/L (3.3-5.1); Sodium 143 mmol/L (135-145); Total Protein 6.5 g/dL (6.5-8.0); Triglycerides 86 mg/dL (<150)
[2025-06-18] MEDS: 0.9 % Sodium Chloride Flush 3 ML SYRINGE IVFLUSH (08:22)
[2025-06-18] MEDS: Nitroglycerin 2 % Oint 1 GM Packet 1 INCH TRANSDERMA ×2 (09:24→15:45)
--- NOTE | 2025-06-18 09:32 | PM.CNCAR ---
History of Present Illness History of Present Illness Date of Service: 06/18/25 Requesting physician: Frances Platt Consult reason: other (Acute coronary syndrome) Chief complaint: chest pain Narrative: I was consulted to see Conor in cardiology consultation today for chest discomfort with elevated troponins. 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 Patient developed yesterday burning discomfort in his epigastric area with radiation to the chest and precordial area with pressure in his chest. He therefore felt weird and said that this was unusual and came to the hospital. Patient's initially felt these burning sensation was similar to possibly his portal vein thrombosis and he had noted but once he started having precordial chest discomfort he came to the emergency room. He said about 3 days ago while walking to the store he had mild chest pressure and felt weird and symptoms went away and he did not think much about it. Subsequently for the next 2 days he was having discomfort with burning discomfort in his epigastric and retrosternal area after eating. When he came to the Emergency was noted to be hypertensive with elevated blood pressure. He says since early summer he has stopped taking all his medications because he would never get his INR levels adequately controlled and felt that this was unnecessary for him to take. He also stopped taking his blood pressure medications. He had not seek any consultation with his primary care physician. He came to the emergency room and since then he has got nitro paste for his elevated blood pressure metoprolol and Lovenox as well as aspirin and statins. He has mild chest pressure this morning. He denies any recent other symptoms. No heart failure symptoms. No flu-like symptoms. No palpitation, lightheadedness, syncope. Review of Systems Constitutional: Constitutional: Reports no additional constitutional complaints Cardiovascular: Cardiovascular: Reports chest pain at rest, Reports chest pain with activity, Reports Epigastric Pain, Denies leg edema, Denies lightheadedness, Denies Loss of Consciousness, Denies dyspnea and Denies dyspnea on exertion Respiratory: Respiratory: Denies no additional respiratory complaints, Denies dyspnea and Denies dyspnea on exertion Gastrointestinal: Gastrointestinal: Denies no additional gastrointestinal complaints Genitourinary: Genitourinary: Denies no additional male genitourinary complaints Musculoskeletal: Musculoskeletal: Denies no additional musculoskeletal complaints Integumentary/Breasts: Skin/Breast: Denies system reviewed and no additional complaints, except as docu Psychiatric: Psychiatric: Denies no additional psychiatric complaints [facility] Past Medical History Medical History Erythrocytosis Tachycardia Anxiety, generalized Tobacco abuse Dyspepsia Splenic vein thrombosis Hepatitis C antibody positive in blood Hypertension, essential Bipolar 1 disorder Family History Family History Father HTN (hypertension) Mother HTN (hypertension) Brother HTN (hypertension) Maternal Grandfather No problems noted. Maternal Grandmother No problems noted. Paternal Grandfather No problems noted. Paternal Grandmother No problems noted. Brother No problems noted. Sister No problems noted. Daughter No problems noted. Other Substance use disorder Surgical History Surgical History History of surgery History of tonsillectomy Social History Social History Household Members: Family Housing: [facility] Are you a primary post acute care registered nurse to a significant other at home: No Do you presently have visiting nurse or other home services: No Alcohol intake: former Patient Tobacco Use Status: Current someday Tobacco user Tobacco use type: Cigarette Cigarette Packs Per Day: 0.5 Cigarettes Per Day: 10.0 Years Smoked: 40 e-Cigarette/Vaping Use: Never Used Substance Use Type: Other service: No Current occupational status: disabled Cognitive needs: No Hearing needs: No Vision needs: Yes Meds Allergies Allergy/AdvReac Type Severity Reaction Status Date / Time Seasonal Allergies Allergy Mild Itchy Eyes Verified 06/17/25 10:38 Active Medications: Current Medications Acetaminophen (Acetaminophen 325 Mg Tablet) 650 mg PO Q6H PRN PRN Reason: Pain, Mild 1-3,fever,headache Last Admin: 06/17/25 22:16 Dose: 650 mg Amlodipine Besylate (Amlodipine Besylate 10 Mg Tablet) 10 mg PO DAILY TISHA; Protocol Last Admin: 06/18/25 08:21 Dose: 10 mg Atorvastatin Calcium (Atorvastatin Calcium 40 Mg Tablet) 40 mg PO BEDTIME TISHA Last Admin: 06/17/25 22:17 Dose: 40 mg Calcium Carbonate (Calcium Carbonate 750 Mg Tab.Chew) 750 mg PO Q4H PRN PRN Reason: Heartburn Dextrose (Dextrose 50 % 25 Gm/50 Ml Syringe) 25 gm IVPUSH Q15M PRN; Protocol PRN Reason: per Hypoglycemia Standing Ord. Docusate Sodium (Docusate Sodium 100 Mg Capsule) 100 mg PO BID [facility] Last Admin: 06/18/25 08:21 Dose: 100 mg Enoxaparin Sodium (Enoxaparin Sodium 100 Mg/Ml Syringe) 90 mg SUBCUT Q12H [facility] Last Admin: 06/18/25 03:56 Dose: 90 mg Glucose (Glucose Gel 15 Gm Gel..Gram.) 15 gm PO Q15M PRN; Protocol PRN Reason: per Hypoglycemia Standing Ord. Insulin Human Lispro (Insulin Lispro 100 Unit/Ml 3 Ml Vial) 0 unit SUBCUT QIDACHS [facility]; Protocol Last Admin: 06/18/25 07:54 Dose: Not Given Lidocaine (Lidocaine 4 % Patch Adh..Patch) 2 patch TRANSDERMA DAILY [facility]; Protocol Last Admin: 06/18/25 09:32 Dose: Not Given Magnesium Hydroxide (Milk Of Magnesia 30 Ml Oral.Susp) 30 ml PO DAILY PRN PRN Reason: Constipation Melatonin (Melatonin 3 Mg Tablet) 6 mg PO BEDTIME PRN PRN Reason: Insomnia Nitroglycerin (Nitroglycerin 0.4 Mg Tab.Subl) 0.4 mg SUBLINGUAL Q5MX3 PRN PRN Reason: Chest Pain Last Admin: 06/17/25 15:05 Dose: 0.4 1000units Nitroglycerin (Nitroglycerin 2 % Oint 1 Gm Packet) 1 inch TRANSDERMA RQ6H WHILE AWAKE [facility] Last Admin: 06/18/25 09:24 Dose: 1 inch Omeprazole (Omeprazole 20 Mg Capsule.Dr) 20 mg PO DAILY@0630 [facility] Last Admin: 06/18/25 06:09 Dose: 20 mg Ondansetron HCl (Ondansetron Hcl 4 Mg/2 Ml Vial) 4 mg IVPUSH Q8H PRN PRN Reason: Nausea and Vomiting Polyethylene Glycol (Polyethylene Glycol 3350 17 Gm Powd.Pack) 17 gm PO DAILY PRN PRN Reason: Constipation Senna (Sennosides 8.6 Mg Tablet) 17.2 mg PO BEDTIME [facility] Last Admin: 06/17/25 22:17 Dose: 17.2 mg Sodium Chloride (0.9 % Sodium Chloride Flush 3 Ml Syringe) 3 ml IVFLUSH QSHIFT TISHA Last Admin: 06/18/25 08:22 Dose: 3 ml Physical Exam Vital Signs: Vital Signs: Last Vital Signs Temp 97.1 F 06/18/25 07:18 Pulse 63 06/18/25 07:18 Resp 18 06/18/25 07:18 BP 150/86 H 06/18/25 07:18 Pulse Ox 97 06/18/25 07:18 O2 Del Method Room Air 06/18/25 07:18 BMI result Body Mass Index 28.5 Const: General: cooperative, comfortable, no acute distress, well developed, alert, awake and Physically active Nutritional Appearance: average body habitus and well nourished Orientation/consciousness: patient oriented x3 Limitations: no limitations HEENT: Head: Yes normocephalic and Yes atraumatic Neck: Neck: Yes trachea midline, Yes supple and Yes no JVD Resp: Effort & Inspection: normal respiratory effort Auscultation: clear to auscultation bilaterally Cardio: Jugular venous distension: no JVD Palpation: normal PMI Rate: regular rate Rhythm: regular rhythm Heart sounds: S1 normal heart sound present, S2 normal heart sound present, no click, no gallops, no murmurs and no rubs GI: Auscultation: normal bowel sounds Skin: General skin exam: no rashes or lesions noted Neuro: General: patient oriented x3 and no focal motor deficits Extrem: General: Yes no clubbing, cyanosis or edema Objective Labs and Meds 06/18/25 06:18 06/18/25 06:18 Lab results: Laboratory Results - last 24 hr 06/17/25 06/17/25 06/17/25 10:56 12:33 14:56 WBC 3.6 L Cancelled RBC 6.53 H Hgb 17.7 Hct 52.5 H MCV 80.4 MCH 27.1 MCHC 33.7 RDW 13.2 Plt Count 128 L D MPV 9.5 Immature Gran % (Auto) 0.0 Neut % (Auto) 73.5 H Lymph % (Auto) 19.4 L [place] % (Auto) 6.2 Eos % (Auto) 0.6 Baso % (Auto) 0.3 Lymph # (Auto) 0.7 L [place] # (Auto) 0.2 Eos # (Auto) 0.0 Baso # (Auto) 0.0 Abs Immat Gran (auto) 0.00 Absolute Neuts (auto) 2.6 Absolute Nucleated RBC 0.000 Nucleated RBC % (auto) 0.0 PT 12.8 INR 1.0 D-Dimer High Sensitivty < 150 Sodium 140 Potassium 3.7 Chloride 105 Carbon Dioxide 26 Anion Gap 13 BUN 13 Creatinine 0.95 Estim Creat Clear Calc 94.0 Estimated GFR > 60 POC Glucose Random Glucose 148 H Estimat Average Glucose Hemoglobin A1c % Lactic Acid 1.6 Calcium 9.6 Magnesium Total Bilirubin 0.7 AST 27 ALT 36 Alkaline Phosphatase 75 Troponin I High Sens 56.0 H 149.5 H* D NT-Pro-B Natriuret Pep Total Protein 7.1 Albumin 4.6 Triglycerides Cholesterol LDL Cholesterol, Calc HDL Cholesterol TSH Urine Color Urine Appearance Urine pH Ur Specific [place] Urine Protein Urine Glucose (UA) Urine Ketones Urine Blood Urine Nitrite Ur Leukocyte Esterase Urine Opiates Screen Ur Buprenorphine Scrn Ur Oxycodone Screen Urine Methadone Screen Urine Fentanyl Screen Ur Barbiturates Screen Ur Phencyclidine Scrn Ur Amphetamines Screen U Benzodiazepines Scrn Urine Cocaine Screen U Marijuana (THC) Screen Ethyl Alcohol Urine Ethyl Alcohol Hepatitis A IgM Ab Hep Bs Antigen Hep Bs Antibody Hep B Core Total Ab Hepatitis C Ab (EIA) 06/17/25 06/17/25 06/17/25 14:56 14:56 14:56 WBC 5.1 RBC Cancelled 6.50 H Hgb Cancelled 17.7 Hct Cancelled MCV MCH MCHC RDW Plt Count MPV Immature Gran % (Auto) Neut % (Auto) Lymph % (Auto) Merrick % (Auto) Eos % (Auto) Baso % (Auto) Lymph # (Auto) [place] # (Auto) Eos # (Auto) Baso # (Auto) Abs Immat Gran (auto) Absolute Neuts (auto) Absolute Nucleated RBC Nucleated RBC % (auto) PT INR D-Dimer High Sensitivty Sodium Potassium Chloride Carbon Dioxide Anion Gap BUN Creatinine Estim Creat Clear Calc Estimated GFR POC Glucose Random Glucose Estimat Average Glucose Hemoglobin A1c % Lactic Acid Calcium Magnesium Total Bilirubin AST ALT Alkaline Phosphatase Troponin I High Sens NT-Pro-B Natriuret Pep Total Protein Albumin Triglycerides Cholesterol LDL Cholesterol, Calc HDL Cholesterol TSH Urine Color Urine Appearance Urine pH Ur Specific [place] Urine Protein Urine Glucose (UA) Urine Ketones Urine Blood Urine Nitrite Ur Leukocyte Esterase Urine Opiates Screen Ur Buprenorphine Scrn Ur Oxycodone Screen Urine Methadone Screen Urine Fentanyl Screen Ur Barbiturates Screen Ur Phencyclidine Scrn Ur Amphetamines Screen U Benzodiazepines Scrn Urine Cocaine Screen U Marijuana (THC) Screen Ethyl Alcohol Urine Ethyl Alcohol Hepatitis A IgM Ab Hep Bs Antigen Hep Bs Antibody Hep B Core Total Ab Hepatitis C Ab (EIA) 06/17/25 06/17/25 06/17/25 14:56 14:56 14:56 WBC RBC Hgb Hct 52.1 H MCV Cancelled 80.2 MCH Cancelled 27.2 MCHC Cancelled RDW Plt Count MPV Immature Gran % (Auto) Neut % (Auto) Lymph % (Auto) [place] % (Auto) Eos % (Auto) Baso % (Auto) Lymph # (Auto) [place] # (Auto) Eos # (Auto) Baso # (Auto) Abs Immat Gran (auto) Absolute Neuts (auto) Absolute Nucleated RBC Nucleated RBC % (auto) PT INR D-Dimer High Sensitivty Sodium Potassium Chloride Carbon Dioxide Anion Gap BUN Creatinine Estim Creat Clear Calc Estimated GFR POC Glucose Random Glucose Estimat Average Glucose Hemoglobin A1c % Lactic Acid Calcium Magnesium Total Bilirubin AST ALT Alkaline Phosphatase Troponin I High Sens NT-Pro-B Natriuret Pep Total Protein Albumin Triglycerides Cholesterol LDL Cholesterol, Calc HDL Cholesterol TSH Urine Color Urine Appearance Urine pH Ur Specific [place] Urine Protein Urine Glucose (UA) Urine Ketones Urine Blood Urine Nitrite Ur Leukocyte Esterase Urine Opiates Screen Ur Buprenorphine Scrn Ur Oxycodone Screen Urine Methadone Screen Urine Fentanyl Screen Ur Barbiturates Screen Ur Phencyclidine Scrn Ur Amphetamines Screen U Benzodiazepines Scrn Urine Cocaine Screen U Marijuana (THC) Screen Ethyl Alcohol Urine Ethyl Alcohol Hepatitis A IgM Ab Hep Bs Antigen Hep Bs Antibody Hep B Core Total Ab Hepatitis C Ab (EIA) 06/17/25 06/17/25 06/17/25 14:56 14:56 14:56 WBC RBC Hgb Hct MCV MCH MCHC 34.0 RDW Cancelled 13.3 Plt Count Cancelled 147 L MPV Cancelled Immature Gran % (Auto) Neut % (Auto) Lymph % (Auto) Merrick % (Auto) Eos % (Auto) Baso % (Auto) Lymph # (Auto) Merrick # (Auto) Eos # (Auto) Baso # (Auto) Abs Immat Gran (auto) Absolute Neuts (auto) Absolute Nucleated RBC Nucleated RBC % (auto) PT INR D-Dimer High Sensitivty Sodium Potassium Chloride Carbon Dioxide Anion Gap BUN Creatinine Estim Creat Clear Calc Estimated GFR POC Glucose Random Glucose Estimat Average Glucose Hemoglobin A1c % Lactic Acid Calcium Magnesium Total Bilirubin AST ALT Alkaline Phosphatase Troponin I High Sens NT-Pro-B Natriuret Pep Total Protein Albumin Triglycerides Cholesterol LDL Cholesterol, Calc HDL Cholesterol TSH Urine Color Urine Appearance Urine pH Ur Specific [place] Urine Protein Urine Glucose (UA) Urine Ketones Urine Blood Urine Nitrite Ur Leukocyte Esterase Urine Opiates Screen Ur Buprenorphine Scrn Ur Oxycodone Screen Urine Methadone Screen Urine Fentanyl Screen Ur Barbiturates Screen Ur Phencyclidine Scrn Ur Amphetamines Screen U Benzodiazepines Scrn Urine Cocaine Screen U Marijuana (THC) Screen Ethyl Alcohol Urine Ethyl Alcohol Hepatitis A IgM Ab Hep Bs Antigen Hep Bs Antibody Hep B Core Total Ab Hepatitis C Ab (EIA) 06/17/25 06/17/25 06/17/25 14:56 14:56 14:56 WBC RBC Hgb Hct MCV MCH MCHC RDW Plt Count MPV 9.7 Immature Gran % (Auto) Neut % (Auto) Lymph % (Auto) Mer[place] % (Auto) Eos % (Auto) Baso % (Auto) Lymph # (Auto) Mer[place] # (Auto) Eos # (Auto) Baso # (Auto) Abs Immat Gran (auto) Absolute Neuts (auto) Absolute Nucleated RBC Cancelled 0.000 Nucleated RBC % (auto) Cancelled 0.0 PT INR D-Dimer High Sensitivty Sodium Potassium Chloride Carbon Dioxide Anion Gap BUN 11 Creatinine Estim Creat Clear Calc Estimated GFR POC Glucose Random Glucose Estimat Average Glucose Hemoglobin A1c % Lactic Acid Calcium Magnesium Total Bilirubin AST ALT Alkaline Phosphatase Troponin I High Sens NT-Pro-B Natriuret Pep Total Protein Albumin Triglycerides Cholesterol LDL Cholesterol, Calc HDL Cholesterol TSH Urine Color Urine Appearance Urine pH Ur Specific [place] Urine Protein Urine Glucose (UA) Urine Ketones Urine Blood Urine Nitrite Ur Leukocyte Esterase Urine Opiates Screen Ur Buprenorphine Scrn Ur Oxycodone Screen Urine Methadone Screen Urine Fentanyl Screen Ur Barbiturates Screen Ur Phencyclidine Scrn Ur Amphetamines Screen U Benzodiazepines Scrn Urine Cocaine Screen U Marijuana (THC) Screen Ethyl Alcohol Urine Ethyl Alcohol Hepatitis A IgM Ab Hep Bs Antigen Hep Bs Antibody Hep B Core Total Ab Hepatitis C Ab (EIA) 06/17/25 06/17/25 06/17/25 14:56 14:56 14:56 WBC RBC Hgb Hct MCV MCH MCHC RDW Plt Count MPV Immature Gran % (Auto) Neut % (Auto) Lymph % (Auto) [place] % (Auto) Eos % (Auto) Baso % (Auto) Lymph # (Auto) [place] # (Auto) Eos # (Auto) Baso # (Auto) Abs Immat Gran (auto) Absolute Neuts (auto) Absolute Nucleated RBC Nucleated RBC % (auto) PT INR D-Dimer High Sensitivty Sodium Potassium Chloride Carbon Dioxide Anion Gap BUN 11 Creatinine 0.78 0.76 Estim Creat Clear Calc 114.5 117.5 Estimated GFR > 60 POC Glucose Random Glucose Estimat Average Glucose Hemoglobin A1c % Lactic Acid Calcium Magnesium Total Bilirubin AST ALT Alkaline Phosphatase Troponin I High Sens NT-Pro-B Natriuret Pep Total Protein Albumin Triglycerides Cholesterol LDL Cholesterol, Calc HDL Cholesterol TSH Urine Color Urine Appearance Urine pH Ur Specific [place] Urine Protein Urine Glucose (UA) Urine Ketones Urine Blood Urine Nitrite Ur Leukocyte Esterase Urine Opiates Screen Ur Buprenorphine Scrn Ur Oxycodone Screen Urine Methadone Screen Urine Fentanyl Screen Ur Barbiturates Screen Ur Phencyclidine Scrn Ur Amphetamines Screen U Benzodiazepines Scrn Urine Cocaine Screen U Marijuana (THC) Screen Ethyl Alcohol Urine Ethyl Alcohol Hepatitis A IgM Ab Hep Bs Antigen Hep Bs Antibody Hep B Core Total Ab Hepatitis C Ab (EIA) 06/17/25 06/17/25 06/17/25 14:56 16:19 18:39 WBC RBC Hgb Hct MCV MCH MCHC RDW Plt Count MPV Immature Gran % (Auto) Neut % (Auto) Lymph % (Auto) [place] % (Auto) Eos % (Auto) Baso % (Auto) Lymph # (Auto) [place] # (Auto) Eos # (Auto) Baso # (Auto) Abs Immat Gran (auto) Absolute Neuts (auto) Absolute Nucleated RBC Nucleated RBC % (auto) PT INR D-Dimer High Sensitivty Sodium Potassium Chloride Carbon Dioxide Anion Gap BUN Creatinine Estim Creat Clear Calc Estimated GFR > 60 POC Glucose Random Glucose Estimat Average Glucose 117 Hemoglobin A1c % 5.7 Lactic Acid Calcium Magnesium 2.0 Total Bilirubin AST ALT Alkaline Phosphatase Troponin I High Sens 266.3 H* D 240.8 H* NT-Pro-B Natriuret Pep 104.5 Total Protein Albumin Triglycerides Cholesterol LDL Cholesterol, Calc HDL Cholesterol TSH 2.00 Urine Color Yellow Urine Appearance Clear Urine pH 6.5 Ur Specific [place] >= 1.030 H Urine Protein Negative Urine Glucose (UA) Negative Urine Ketones Negative Urine Blood Negative Urine Nitrite Negative Ur Leukocyte Esterase Negative Urine Opiates Screen Not Detected Ur Buprenorphine Scrn Positive H Ur Oxycodone Screen Not Detected Urine Methadone Screen Not Detected Urine Fentanyl Screen Not Detected Ur Barbiturates Screen Not Detected Ur Phencyclidine Scrn Not Detected Ur Amphetamines Screen Not Detected U Benzodiazepines Scrn Not Detected Urine Cocaine Screen Not Detected U Marijuana (THC) Screen Not Detected Ethyl Alcohol < 10 Urine Ethyl Alcohol Cancelled Hepatitis A IgM Ab Nonreactive Hep Bs Antigen Negative Hep Bs Antibody NONREACTIVE Hep B Core Total Ab Nonreactive Hepatitis C Ab (EIA) Reactive H 06/17/25 06/17/25 06/17/25 18:43 21:48 23:12 WBC RBC Hgb Hct MCV MCH MCHC RDW Plt Count MPV Immature Gran % (Auto) Neut % (Auto) Lymph % (Auto) [place] % (Auto) Eos % (Auto) Baso % (Auto) Lymph # (Auto) [place] # (Auto) Eos # (Auto) Baso # (Auto) Abs Immat Gran (auto) Absolute Neuts (auto) Absolute Nucleated RBC Nucleated RBC % (auto) PT INR D-Dimer High Sensitivty Sodium Potassium Chloride Carbon Dioxide Anion Gap BUN Creatinine Estim Creat Clear Calc Estimated GFR POC Glucose 98 100 Random Glucose Estimat Average Glucose Hemoglobin A1c % Lactic Acid Calcium Magnesium Total Bilirubin AST ALT Alkaline Phosphatase Troponin I High Sens 141.7 H* NT-Pro-B Natriuret Pep Total Protein Albumin Triglycerides Cholesterol LDL Cholesterol, Calc HDL Cholesterol TSH Urine Color Urine Appearance Urine pH Ur Specific [place] Urine Protein Urine Glucose (UA) Urine Ketones Urine Blood Urine Nitrite Ur Leukocyte Esterase Urine Opiates Screen Ur Buprenorphine Scrn Ur Oxycodone Screen Urine Methadone Screen Urine Fentanyl Screen Ur Barbiturates Screen Ur Phencyclidine Scrn Ur Amphetamines Screen U Benzodiazepines Scrn Urine Cocaine Screen U Marijuana (THC) Screen Ethyl Alcohol Urine Ethyl Alcohol Hepatitis A IgM Ab Hep Bs Antigen Hep Bs Antibody Hep B Core Total Ab Hepatitis C Ab (EIA) 06/18/25 06/18/25 06:18 06:57 WBC 3.4 L RBC 6.27 H Hgb 17.0 Hct 50.0 MCV 79.7 L MCH 27.1 MCHC 34.0 RDW 13.3 Plt Count 138 L MPV 9.8 Immature Gran % (Auto) 0.0 Neut % (Auto) 60.9 Lymph % (Auto) 29.4 [place] % (Auto) 7.9 Eos % (Auto) 1.5 Baso % (Auto) 0.3 Lymph # (Auto) 1.0 L [place] # (Auto) 0.3 Eos # (Auto) 0.1 Baso # (Auto) 0.0 Abs Immat Gran (auto) 0.00 Absolute Neuts (auto) 2.1 Absolute Nucleated RBC 0.000 Nucleated RBC % (auto) 0.0 PT 14.6 H INR 1.2 H D-Dimer High Sensitivty Sodium 143 Potassium 3.7 Chloride 109 H Carbon Dioxide 24 Anion Gap 14 BUN 10 Creatinine 0.84 Estim Creat Clear Calc 104.9 Estimated GFR > 60 POC Glucose 113 Random Glucose 100 Estimat Average Glucose Hemoglobin A1c % Lactic Acid Calcium 9.3 Magnesium 1.8 Total Bilirubin 1.1 H AST 24 ALT 28 Alkaline Phosphatase 66 Troponin I High Sens NT-Pro-B Natriuret Pep Total Protein 6.5 Albumin 4.3 Triglycerides 86 Cholesterol 149 LDL Cholesterol, Calc 94 HDL Cholesterol 38 L TSH Urine Color Urine Appearance Urine pH Ur Specific [place] Urine Protein Urine Glucose (UA) Urine Ketones Urine Blood Urine Nitrite Ur Leukocyte Esterase Urine Opiates Screen Ur Buprenorphine Scrn Ur Oxycodone Screen Urine Methadone Screen Urine Fentanyl Screen Ur Barbiturates Screen Ur Phencyclidine Scrn Ur Amphetamines Screen U Benzodiazepines Scrn Urine Cocaine Screen U Marijuana (THC) Screen Ethyl Alcohol Urine Ethyl Alcohol Hepatitis A IgM Ab Hep Bs Antigen Hep Bs Antibody Hep B Core Total Ab Hepatitis C Ab (EIA) EKG shows normal sinus rhythm with no acute ST-T wave changes Imaging Radiologist's impression: Impressions Chest X-Ray 06/17/25 10:55 IMPRESSION: Acute on chronic airspace disease. Hiatal hernia. Electronically signed by: Rashid Jones MD 06/17/2025 11:05 AM [facility] Abdomen CTA 06/17/25 12:00 IMPRESSION: No aneurysm or dissection or high-grade degree stenosis, abdominal aorta. Atherosclerosis disease. 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 Hiatal hernia, large volume. Bilateral renal cysts. The exam does not evaluate the venous system. . Fleischner guidelines were followed. Electronically signed by: Rashid Jones MD 06/17/2025 12:22 PM EST RP Chest X-Ray 06/18/25 05:15 IMPRESSION: No focal consolidation. Electronically signed by: Alice Hough MD 06/18/2025 07:01 AM EST RP Assessment and Plan (1) Acute coronary syndrome: Status: Acute Discussed with patient that most likely given his wall motion abnormality on the echocardiogram as well as symptoms and elevated troponins his symptoms are related to cardiac event with a acute coronary syndrome. Possible etiologies include acute plaque rupture/erosion versus [place] artery thrombosis given his prior history of hypercoagulable state. He is currently on full anticoagulation therapy with Lovenox which hopefully with the next dose we can convert to IV heparin drip. He will need cardiac catheterization and the rationale for this with interventional approach was discussed in details compared to conservative medical approach. He showed understanding agreement. I discussed cardiac catheterization details including risks, benefits, alternatives. He is agreeable. Will transfer to [facility] today and will be scheduled for cardiac catheterization tomorrow. Possible outcomes with cardiac catheterization was discussed including need for stenting. Continue aspirin, anticoagulation, high-intensity statin therapy. Would also give him low-dose metoprolol and continue with nitro paste with better control of his blood pressure. Importance of compliance with medication was discussed. Complete smoking cessation was advised. Will follow up in the clinic after he is discharged from [facility]. Procedures Date of Service Date of Service: 06/18/25
[2025-06-18 09:58] VITALS: BMI 28.2
[2025-06-18 10:30] LABS: Hematocrit 52.4 % (42.0-52.0); Hemoglobin 17.5 g/dl (14.0-18.0); Mean Corpuscular HGB Conc 33.4 g/dl (31.0-36.0); Mean Corpuscular Hemoglobin 26.6 pg (27.0-33.0); Mean Corpuscular Volume 79.6 fL (80.0-98.0); NRBC Abs Auto 0.000 X10*3/uL (0.0-0.012); NRBC Pct Auto 0.0 /100WBC (0.0-0.2); Platelet Count 135 X10*3/uL (160-400); Red Blood Count 6.58 X10*6/uL (4.60-5.80); White Blood Count 3.4 X10*3/uL (4.8-10.8)
--- NOTE | 2025-06-18 10:39 | MHC.CM.PN ---
Tiffanie 06/18/25, Pt. lives with his uncle, he does not have HCP, declined to complete one at this time. He does not use home health services or DME. PCP confirmed: Dr. Dimas Reid. DCP: transfer to [facility] for cardiac care, awaiting available bed.
[2025-06-18 10:49] LABS: INTERNATIONAL NORM RATIO 1.2 (0.9-1.1); Prothrombin Time 14.2 SEC (11.2-13.5)
[2025-06-18 10:52] LABS: PTT Heparin Drip 38.8 SEC (53-77.9)
[2025-06-18 11:01] LABS: Glucose, Whole Blood 128 mg/dL (60-115)
[2025-06-18 11:09] VITALS: BP 140/87; PULSE 62; RESP 18; TEMP 36.8; O2SAT 95
--- NOTE | 2025-06-18 13:11 | MHC.RECOVRN ---
TW met with pt in after consult placed to Addiction Medicine due pt purchasing suboxone on the street.? On approach pt was laying in bed, eyes closed. He responded to name being called and asked TW ?what do you want?? When explained the nature of the visit he states, ?Oh leandra, really? I?m not an addict? Pt reports he has been utilizing buprenorphine he purchases from ?different people on the streets? to treat back pain he attributes to ?wear and tear and old age?.? He denies the use of other substances other than cigarettes and politely declined the need for support or resources.? Pt educated on the current drug supply, including pressed pills, to which he responds, ?I take the strips and they are in sealed packages?.? Pt was encouraged to contact PCP to manage pain symptoms and develop a treatment plan moving forward to eliminate the need to purchase medication illegally. Pt declined.? He denies withdrawal symptoms at this time Pt declined intervention, MOUD, or out pt appt for treatment related to OUD at this time.? TW provided contact information if questions or concerns arise which he currently denies.
[2025-06-18 15:15] VITALS: BP 136/82; PULSE 66; RESP 16; TEMP 36.8; O2SAT 95
[2025-06-18] MEDS: Heparin Sodium,Porcine/1/2NS 25,000 UNIT/250 ML IV.SOLN 10 UNIT IVCONT (15:34)
[2025-06-18 16:23] LABS: Glucose, Whole Blood 119 mg/dL (60-115)
--- NOTE | 2025-06-18 17:07 | P.DS_ITS ---
DS: Providers Provider Date of Service: 06/18/25 Date of admission: 06/18/25 11:06 Date of discharge: 06/18/25 Primary care physician: Dimas Reid MD Consults: 06/17/25 14:21 Consult to Cardiology Routine Consulting Provider: [facility] [place] [facility] Reason for consultation: nstemi. cp in a pt with troponenemia 06/17/25 14:27 Consult to Hematology / Oncology Routine Consulting Provider: [facility] [place] Oncology/Hematology Reason for consultation: portal vein thrombosis 06/17/25 16:20 Addiction Medicine Provider Routine Consulting Provider: Addiction Covering Reason for consultation: Suboxone, NATY DS: Diagnosis Discharge Diagnosis (1) Acute coronary syndrome: Status: Acute DS: Summary Hospital Course Hospital Course: Patient is a 59-year-old male with PMH notable for medication noncompliance, missed appointments, HTN not taking home meds, suppose it portal vein thrombosis (not compliant with anticoagulation warfarin), anxiety, current tobacco use, NATY (off the street Suboxone treatment), hep C not treated, bipolar 1 not on any medication, comes in with chest pain 05/16, burning type, substernal, nonradiating and is likely having substernal chest pain suggestive of ACS origin in the setting of medication noncompliance. ACS likely secondary to CAD-medication noncompliance Chronic HTN not on medication due to patient noncompliance Up trending troponinemia-type 2 MS from demand [place] Per cardiology note today: Discussed with patient that most likely given his wall motion abnormality on the echocardiogram as well as symptoms and elevated troponins his symptoms are related to cardiac event with a acute coronary syndrome. Possible etiologies include acute plaque rupture/erosion versus [place] artery thrombosis given his prior history of hypercoagulable state. He is currently on full anticoagulation therapy with Lovenox which hopefully with the next dose we can convert to IV heparin drip. He will need cardiac catheterization and the rationale for this with interventional approach was discussed in details compared to conservative medical approach. He showed understanding agreement. I discussed cardiac catheterization details including risks, benefits, alternatives. He is agreeable. Will transfer to [facility] today and will be scheduled for cardiac catheterization tomorrow. Possible outcomes with cardiac catheterization was discussed including need for stenting. Continue aspirin, anticoagulation, high-intensity statin therapy. Would also give him low-dose metoprolol and continue with nitro paste with better control of his blood pressure. Importance of compliance with medication was discussed. Complete smoking cessation was advised. OP cardiology f/up TTE 06/18/2025 Conclusions: - 1. Low normal LV ejection fraction 50-55% with regional wall motion abnormality suggestive of coronary artery disease with grade 1 diastolic dysfunction 2. Mild fibrocalcific aortic valve changes noted with normal cardiac valvular Dopplers 3. Normal RV systolic pressure 4. No gross pericardial effusion chest pain /, burning type, substernal, nonradiating and is likely having substernal chest pain suggestive of CAD origin in the setting of medication noncompliance given his brisk response to nitroglycerin with symptomatic improvement in chest pain and blood pressure, as well as troponins, EKG and telemetry Given that the patient has not been compliant to meds-I have reinforced medication compliance-patient is that he will continue taking his home meds EKG unremarkable for any STEMI Hold off on metoprolol as the patient is in sinus bradycardia with very sensitive to metoprolol Patient is currently chest pain free reports 2/10 chest pain post nitro Patient has nitro paste for hypertensive urgency Check electrolytes daily and treat to goal DVT r/o with ultrasound the legs Switched to Heparin drip for cath Off the street Suboxone use patient reports taking Suboxone off the streets p.r.n. 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 CTA was done did not evidence any portal vein thrombosis Erythrocytosis Intermittent erythrocytosis-intermittent phlebotomies-patient likely did not fo llow up with outpatient Oncology for his phlebotomy Cirrhosis/hepatocellular disease without ascites Likely SIN-outpatient setting Chronic Hiatal hernia-outpatient management with GI, for inpatient we will manage with home omeprazole Current tobacco user- Nicotine replacement History of hep C - We will check hepatitis screen Leukopenia and thrombocytopenia-likely secondary to tick-borne versus acute stress versus sepsis we will check tick panel, Anaplasma Babesia- pending at the time of this transfer. OP f/up Thrombocytopenia-likely in the setting of acute hospitalization , however other etiologies can not be ruled out. We will continue to trend daily CBC Given leukopenia and thrombocytopenia, in the setting of substance use disorder, I would like to check sepsis workup in a patient who could be having a stress reaction- pending at the time of this note. DVT prophylaxis with heparin Patient needs colonoscopy outpatient-patient has been a no-show for multiple appointments for his oncology and GI management Social work consulted as the patient likely needs help with reestablishing PCP, compliance and warfarin Full code This note is constructed using voice recognition software. While every effort has been made to ensure accuracy, casting repairer errors may have been included. Time spent discussing smoking cessation with patient: more than 10 minutes Status at Discharge Functional status at discharge: independent ambulation Overall status at discharge: patient is progressing back to baseline Time Attestation Discharge Coordination Time (in mins): 65 Quality: Safe Use of Opioids Does Pt have an Active Cancer Diagnosis on the Problem List?: No Quality: Stroke Does the patient have a stroke diagnosis?: No Physical Exam Vital Signs: Vital Signs: Last Vital Signs Temp 98.2 F 06/18/25 15:15 Pulse 66 06/18/25 15:15 Resp 16 06/18/25 15:15 BP 136/82 06/18/25 15:15 Pulse Ox 95 06/18/25 15:15 O2 Del Method Room Air 06/18/25 15:15 BMI result Body Mass Index 28.2 Const: General: cooperative, comfortable, no acute distress, well developed, alert, awake and Physically active Nutritional Appearance: average body habitus and well nourished Orientation/consciousness: patient oriented x3 Limitations: no limitations HEENT: Head: Yes normocephalic and Yes atraumatic Neck: Neck: Yes trachea midline, Yes supple and Yes no JVD Resp: Effort & Inspection: normal respiratory effort Auscultation: clear to auscultation bilaterally Cardio: Jugular venous distension: no JVD Palpation: normal PMI Rate: regular rate Rhythm: regular rhythm Heart sounds: S1 normal heart sound present, S2 normal heart sound present, no click, no gallops, no murmurs and no rubs GI: Auscultation: normal bowel sounds Skin: General skin exam: no rashes or lesions noted Neuro: General: patient oriented x3 and no focal motor deficits Extrem: General: Yes no clubbing, cyanosis or edema DS: Data Data Completed and Pending Labs on day of discharge: Laboratory Results - last 24 hr 06/17/25 06/17/25 06/17/25 14:56 16:19 18:39 WBC RBC Hgb Hct MCV MCH MCHC RDW Plt Count MPV Immature Gran % (Auto) Neut % (Auto) Lymph % (Auto) [place] % (Auto) Eos % (Auto) Baso % (Auto) Lymph # (Auto) [place] # (Auto) Eos # (Auto) Baso # (Auto) Abs Immat Gran (auto) Absolute Neuts (auto) Absolute Nucleated RBC Nucleated RBC % (auto) PT INR aPTT Heparin Protocol Sodium Potassium Chloride Carbon Dioxide Anion Gap BUN 11 Creatinine 0.76 Estim Creat Clear Calc 117.5 Estimated GFR > 60 POC Glucose Random Glucose Calcium Magnesium 2.0 Total Bilirubin AST ALT Alkaline Phosphatase Troponin I High Sens 240.8 H* Total Protein Albumin Triglycerides Cholesterol LDL Cholesterol, Calc HDL Cholesterol TSH 2.00 Ethyl Alcohol < 10 Urine Ethyl Alcohol Cancelled Hepatitis A IgM Ab Nonreactive Hep Bs Antigen Negative Hep Bs Antibody NONREACTIVE Hep B Core Total Ab Nonreactive Hepatitis C Ab (EIA) Reactive H 06/17/25 06/17/25 06/17/25 18:43 21:48 23:12 WBC RBC Hgb Hct MCV MCH MCHC RDW Plt Count MPV Immature Gran % (Auto) Neut % (Auto) Lymph % (Auto) [place] % (Auto) Eos % (Auto) Baso % (Auto) Lymph # (Auto) [place] # (Auto) Eos # (Auto) Baso # (Auto) Abs Immat Gran (auto) Absolute Neuts (auto) Absolute Nucleated RBC Nucleated RBC % (auto) PT INR aPTT Heparin Protocol Sodium Potassium Chloride Carbon Dioxide Anion Gap BUN Creatinine Estim Creat Clear Calc Estimated GFR POC Glucose 98 100 Random Glucose Calcium Magnesium Total Bilirubin AST ALT Alkaline Phosphatase Troponin I High Sens 141.7 H* Total Protein Albumin Triglycerides Cholesterol LDL Cholesterol, Calc HDL Cholesterol TSH Ethyl Alcohol Urine Ethyl Alcohol Hepatitis A IgM Ab Hep Bs Antigen Hep Bs Antibody Hep B Core Total Ab Hepatitis C Ab (EIA) 06/18/25 06/18/25 06/18/25 06:18 06:57 10:03 WBC 3.4 L 3.4 L RBC 6.27 H 6.58 H Hgb 17.0 17.5 Hct 50.0 52.4 H MCV 79.7 L 79.6 L MCH 27.1 26.6 L MCHC 34.0 33.4 RDW 13.3 13.6 Plt Count 138 L 135 L MPV 9.8 9.7 Immature Gran % (Auto) 0.0 Neut % (Auto) 60.9 Lymph % (Auto) 29.4 [place] % (Auto) 7.9 Eos % (Auto) 1.5 Baso % (Auto) 0.3 Lymph # (Auto) 1.0 L [place] # (Auto) 0.3 Eos # (Auto) 0.1 Baso # (Auto) 0.0 Abs Immat Gran (auto) 0.00 Absolute Neuts (auto) 2.1 Absolute Nucleated RBC 0.000 0.000 Nucleated RBC % (auto) 0.0 0.0 PT 14.6 H 14.2 H INR 1.2 H 1.2 H aPTT Heparin Protocol 38.8 L Sodium 143 Potassium 3.7 Chloride 109 H Carbon Dioxide 24 Anion Gap 14 BUN 10 Creatinine 0.84 Estim Creat Clear Calc 104.9 Estimated GFR > 60 POC Glucose 113 Random Glucose 100 Calcium 9.3 Magnesium 1.8 Total Bilirubin 1.1 H AST 24 ALT 28 Alkaline Phosphatase 66 Troponin I High Sens Total Protein 6.5 Albumin 4.3 Triglycerides 86 Cholesterol 149 LDL Cholesterol, Calc 94 HDL Cholesterol 38 L TSH Ethyl Alcohol Urine Ethyl Alcohol Hepatitis A IgM Ab Hep Bs Antigen Hep Bs Antibody Hep B Core Total Ab Hepatitis C Ab (EIA) 06/18/25 06/18/25 10:55 16:12 WBC RBC Hgb Hct MCV MCH MCHC RDW Plt Count MPV Immature Gran % (Auto) Neut % (Auto) Lymph % (Auto) [place] % (Auto) Eos % (Auto) Baso % (Auto) Lymph # (Auto) [place] # (Auto) Eos # (Auto) Baso # (Auto) Abs Immat Gran (auto) Absolute Neuts (auto) Absolute Nucleated RBC Nucleated RBC % (auto) PT INR aPTT Heparin Protocol Sodium Potassium Chloride Carbon Dioxide Anion Gap BUN Creatinine Estim Creat Clear Calc Estimated GFR POC Glucose 128 H 119 H Random Glucose Calcium Magnesium Total Bilirubin AST ALT Alkaline Phosphatase Troponin I High Sens Total Protein Albumin Triglycerides Cholesterol LDL Cholesterol, Calc HDL Cholesterol TSH Ethyl Alcohol Urine Ethyl Alcohol Hepatitis A IgM Ab Hep Bs Antigen Hep Bs Antibody Hep B Core Total Ab Hepatitis C Ab (EIA) Preliminary micro results at discharge 06/17/25 12:33 Blood Culture - Preliminary Blood - Venous No growth after 24 hours. 06/17/25 12:33 Blood Culture - Preliminary Blood - Venous No growth after 24 hours. Discharge Plan Discharge Anticipated Discharge Date/Time: 06/18/25 17:01 Patient Disposition: Xfer Other Discharge Diagnosis: Chest pain likely secondary to CAD-medication noncompliance, hypertensive urgency causing ACS Referrals: Dimas Reid MD [Primary Care Provider, Internal Medicine] - 1 Week Discharge Medications: New heparin(porcine) in 0.45% NaCl 25,000 unit/250 mL Parenteral Solution 25,000 unit continuous IV infusion .Q0M Qty: 6000 0RF Continued amlodipine 10 mg tablet 10 mg PO DAILY 90 Days Qty: 90 0RF Rx Instructions: (hasn't taken in months per patient) omeprazole 20 mg capsule,delayed release(DR/EC) 20 mg PO DAILY 90 Days Qty: 90 0RF Rx Instructions: (hasn't taken in months per pt) warfarin 5 mg tablet 5 mg .ROUTE .COMPLEX Qty: 90 3RF Protocol: Dose Management Condition: Monday (Week One) Dose/Route: 7.5 mg Instruction: 1.5 x 5 mg tablets Condition: Monday Dose/Route: 7.5 mg Instruction: 1.5 x 5 mg tablets Condition: Monday Dose/Route: 7.5 mg Instruction: 1.5 x 5 mg tablets Condition: Monday Dose/Route: 7.5 mg Instruction: 1.5 x 5 mg tablets Condition: Dose/Route: 7.5 mg Instruction: 1.5 x 5 mg tablets Condition: Monday Dose/Route: 7.5 mg Instruction: 1.5 x 5 mg tablets Condition: Monday Dose/Route: 7.5 mg Instruction: 1.5 x 5 mg tablets Condition: Monday (Week Two) Dose/Route: 7.5 mg Instruction: 1.5 x 5 mg tablets Condition: Monday Dose/Route: 7.5 mg Instruction: 1.5 x 5 mg tablets Condition: Monday Dose/Route: 7.5 mg Instruction: 1.5 x 5 mg tablets Condition: Monday Dose/Route: 7.5 mg Instruction: 1.5 x 5 mg tablets Condition: Dose/Route: 7.5 mg Instruction: 1.5 x 5 mg tablets Condition: Monday Dose/Route: 7.5 mg Instruction: 1.5 x 5 mg tablets Condition: Monday Dose/Route: 7.5 mg Instruction: 1.5 x 5 mg tablets Protocol Text: Adjustment Start Date: 09/05/24 INR Value: 3.1 INR Date: 09/05/24 Recheck Date: 09/10/24 Additional Instructions: cont 7.5mg daily eat a green today Rx Instructions: 5 mg TABS 10MG DAILY Discharge Orders: Discharge Order (Routine); Ordered 06/18/25 Ordered By: Frances Platt Diet: Low salt diet Activity on Discharge: As tolerated Stand Alone Forms: Patient Portal Discharge page Print Language: Malian Care Plan Goals: Patient is being transferred to [facility] for cardiac catheterization and possible stenting Continue heparin drip Continue nitro paste for hypertensive urgency Holding off on metoprolol given sinus bradycardia Cardiology Department has made the transferred to [facility] Medication compliance reinstated for the patient Health Concerns: See above Plan of Treatment: See above Assessment: See above
[2025-06-19 16:43] LABS: A. Phagocytphilium DNA,RT-PCR NOT DETECTED (NOT DETECTED); Babesia Microti DNA, RT-PCR NOT DETECTED (NOT DETECTED); Borrelia Miyamotoi,DNA RT-PCR NOT DETECTED (NOT DETECTED); E.Chaffeensis DNA RT-PCR NOT DETECTED (NOT DETECTED); Lyme(Borrelia ssp)DNA RT-PCR NOT DETECTED (NOT DETECTED)
[2025-06-20 08:14] LABS: Lyme Abs Screen <0.90 index
== END 2025-06-18 18:01 | disposition other institution (70) | DRG 190 ==
LOC: HO.ED 13:54 → HO.EDOVER 14:38 → HO.IMC 19:44
PROVIDERS: Emergency Medicine; Admitting Provider Student in an Organized Health Care Education/Training Program; Emergency Provider Emergency Medicine; PCP Internal Medicine; Visit Provider Student in an Organized Health Care Education/Training Program
DX: I24.9 Acute ischemic heart disease, unspecified (principal); I21.A1 Myocardial infarction type 2; D69.59 Other secondary thrombocytopenia; K74.69 Other cirrhosis of liver; I16.0 Hypertensive urgency; K75.81 Nonalcoholic steatohepatitis (NASH); I10 Essential (primary) hypertension; F17.210 Nicotine dependence, cigarettes, uncomplicated; Z71.6 Tobacco abuse counseling; K46.9 Unspecified abdominal hernia without obstruction or gangrene; I25.10 Atherosclerotic heart disease of native coronary artery without angina pectoris; Z91.148 Patient's other noncompliance with medication regimen for other reason; Z79.01 Long term (current) use of anticoagulants; Z79.899 Other long term (current) drug therapy
CPT/HCPCS: 36415; 71045; 71046; 74175; 80053; 80061; 80307; 81003; 82565; 82947; 83036; 83605; 83735; 83880; 84443; 84484; 84520; 85025; 85027; 85379; 85610; 85730; 86617; 86618; 86666; 86704; 86706; 86709; 86753; 86803; 87040; 87207; 87340; 87468; 87469; 87478; 87484; 87798; 93005; 93306; 93970; 97162; 99285; J0616; J0696; J1644; J1650; J7120; Q9957; Q9967

== ENCOUNTER → 2025-06-17 10:01 | Outpatient (BNV) | payer OTHER, SELFPAY | PROVIDERS: Admitting Provider Student in an Organized Health Care Education/Training Program; Emergency Provider Emergency Medicine; PCP Internal Medicine; Visit Provider Internal Medicine Cardiovascular Disease | DX: R94.31 Abnormal electrocardiogram [ECG] [EKG] (principal); R07.9 Chest pain, unspecified | CPT/HCPCS: 93010 ==

== ENCOUNTER → 2025-06-17 10:48 | Outpatient (BNV) | payer OTHER, SELFPAY | PROVIDERS: Emergency Provider Emergency Medicine; PCP Internal Medicine; Visit Provider Radiology Diagnostic Radiology | DX: N28.1 Cyst of kidney, acquired (principal); K44.9 Diaphragmatic hernia without obstruction or gangrene; I70.90 Unspecified atherosclerosis; R22.43 Localized swelling, mass and lump, lower limb, bilateral; R07.9 Chest pain, unspecified | CPT/HCPCS: 71045; 74175; 93970 ==

== ENCOUNTER 2025-06-17 14:16 | Outpatient (BNV) | payer OTHER, SELFPAY | END 2025-06-18 05:00 | PROVIDERS: Admitting Provider Student in an Organized Health Care Education/Training Program; Emergency Provider Emergency Medicine; PCP Internal Medicine; Visit Provider Radiology Body Imaging | DX: R07.9 Chest pain, unspecified (principal) | CPT/HCPCS: 71046 ==

== ENCOUNTER → 2025-06-17 14:16 | Outpatient (BNV) | payer OTHER, SELFPAY | PROVIDERS: Admitting Provider Student in an Organized Health Care Education/Training Program; Emergency Provider Emergency Medicine; PCP Internal Medicine; Visit Provider Internal Medicine Cardiovascular Disease | DX: I24.9 Acute ischemic heart disease, unspecified (principal) | CPT/HCPCS: 99222 ==

== ENCOUNTER → 2025-06-17 14:16 | Outpatient (BNV) | payer OTHER, SELFPAY | PROVIDERS: Admitting Provider Student in an Organized Health Care Education/Training Program; Emergency Provider Emergency Medicine; PCP Internal Medicine; Visit Provider Student in an Organized Health Care Education/Training Program | DX: I16.0 Hypertensive urgency (principal) | CPT/HCPCS: 99223 ==

== ENCOUNTER → 2025-06-19 23:59 | Outpatient (BNV) | payer OTHER, SELFPAY | PROVIDERS: PCP Internal Medicine; Visit Provider Internal Medicine Cardiovascular Disease | DX: I21.4 Non-ST elevation (NSTEMI) myocardial infarction (principal) | CPT/HCPCS: 92941; 92978; 93458; 99152 ==